=== PATIENT | female | born 1950 | race Caucasian/White ===

== ENCOUNTER 2017-10-23 08:30 | Outpatient (RCR) | payer MEDICARE, OTHER, SELFPAY | END 2017-11-09 11:45 | disposition home or self-care (01) | LOC: PT 08:30 | PROVIDERS: Family Provider Internal Medicine Adolescent Medicine; PCP Internal Medicine Adolescent Medicine; Visit Provider Psychiatry & Neurology Neurology | DX: G62.9 Polyneuropathy, unspecified (principal) | CPT/HCPCS: 97110; 97163 ==

== ENCOUNTER 2018-08-07 13:51 | Inpatient (IN) ==
[2018-08-07 14:27] LABS: Basophils % 0.1 % (0.1-2.0); Hematocrit 36.3 % (37.0-47.0); Hemoglobin 12.4 g/dL (12.2-16.2); Lymphocytes # 0.7 K/mm3 (0.7-4.5); Lymphocytes % 6.2 % (10-50); Mean Corpuscular HGB Conc 34.2 g/dL (31.8-35.4); Mean Corpuscular Hemoglobin 32.5 pg (27.0-31.2); Mean Corpuscular Volume 94.9 fl (81-99); Mean Platelet Volume 8.8 fl (7.4-10.4); Monocytes # 0.4 K/mm3 (0.1-1.0); Monocytes % 3.8 % (1.7-9.3); Neutrophils # 9.6 K/mm3 (1.8-7.8); Neutrophils % 89.9 % (37.0-80.0); Platelet Count 143 K/mm3 (142-424); Red Blood Count 3.83 M/mm3 (4.20-5.40); Red Cell Distribution Width 13.7 % (11.5-17.5); White Blood Count 10.7 K/mm3 (4.8-10.8)
[2018-08-07 14:50] LABS: Lymphocytes % 6 % (10-50); Monocytes % 4 % (2-9); Neutrophils % 90 % (42-76); RBC Morphology Normal; Total Cells Counted 100
[2018-08-07 15:04] LABS: Appearance,Urine CLEAR (Clear); Bilirubin,Urine Negative (Negative); Blood, Urine 1+ (Negative); Color,Urine YELLOW (Yellow); Glucose,Urine (UA) Negative (Negative); Ketones,Urine Negative (Negative); Leukocyte Esterase,Urine 3+ (Negative); Microscopic, Urine URINE MICROSCOPIC (MICROSCOPIC); Protein,Urine TRACE (Negative); Urobilinogen,Urine 0.2 EU/dl (0.2)
--- NOTE | 2018-08-07 15:14 | Emergency Department Note ---
ED Disposition Clinical Impression: Pyelonephritis Disposition: Admitted as Observation Condition on Discharge: Fair Referrals: Phil Daly MD [Primary Care Provider] - - Critical Care Critical Care Time: No Attestation: On 08/07/18, the high probability of a clinically significant, sudden or life threatening deterioration of the following system(s) required my full and direct attention, intervention and personal management. The time I documented below is in addition to time spent performing reported procedures but includes the following listed in this critical care notation. Medical Decision Making - Radhames Inquiry Pt receiving controlled substance: No Vital Signs: 08/07/18 13:58 08/07/18 15:52 Temperature 101.9 F H 98.9 F Temperature Source Oral Oral Pulse Rate [Left Radial] 72 68 Respiratory Rate 22 20 Blood Pressure [Right Arm] 144/78 H 115/67 Blood Pressure Mean [Right Arm] 100 83 Blood Pressure Source [Right Arm] Automatic Cuff Automatic Cuff Blood Pressure Position [Right Arm] Sitting Sitting 02 Sat by Pulse Oximetry 94 L 97 Oxygen Delivery Method Room Air Room Air - Lab Data Lab Results 08/07/18 14:00: WBC 10.7, RBC 3.83 L, Hgb 12.4, Hct 36.3 L, MCV 94.9, MCH 32.5 H , MCHC 34.2, RDW 13.7, Plt Count 143, MPV 8.8, Neut % (Auto) 89.9 H, Lymph % (Auto) 6.2 L, [place] % (Auto) 3.8, Eos % (Auto) 0.0 L, Baso % (Auto) 0.1, Neut # (Auto) 9.6 H, Lymph # (Auto) 0.7, [place] # (Auto) 0.4, Eos # (Auto) 0.0, Baso # (Auto) 0.0, Total Counted 100, Neutrophils % (Manual) 90 H, Lymphocytes % (Manual) 6 L, Monocytes % (Manual) 4, Platelet Estimate Normal, RBC Morphology Normal 08/07/18 14:00: Sodium 137, Potassium 3.5, Chloride 102, Carbon Dioxide 26, Anion Gap 12.5, BUN 12, Creatinine 0.75, Estimated Creat Clear 49, Estimated GFR 76, Est GFR ( Amer) 92, Glucose 114 H, Calcium 8.2 L, Total Bilirubin 0.4, AST 19, ALT 38, Alkaline Phosphatase 74, Total Protein 7.2, Albumin 3.2 L, Globulin 4.0 H, Albumin/Globulin Ratio 0.8 L 08/07/18 14:00: Lactate 0.8 08/07/18 14:20: Influenza Type A Ag Negative, Influenza Type B Ag Negative 08/07/18 14:20: Group A Strep Rapid Negative 08/07/18 14:55: Urine Color Yellow, Urine Appearance Clear, Urine pH 6.0, Ur Specific [place] 1.020, Urine Protein Trace, Urine Glucose (UA) Negative, Urine Ketones Negative, Urine Blood 1+, Urine Nitrate Positive, Urine Bilirubin Negative, Urine Urobilinogen 0.2, Ur Leukocyte Esterase 3+ A, Urine RBC 3-5, Urine WBC 20-50, Ur Squamous Epith Cells 3-5, Urine Bacteria 4+ Result diagrams: 08/07/18 14:00 08/07/18 14:00 Orders (Tests/Meds): ED MEDICATIONS Generic Name Dose Route Start Last Admin Trade Name Freq PRN Reason Stop Dose Admin Ceftriaxone Sodium 1 gm/ 50 mls @ 100 mls/hr 08/07/18 16:15 Sodium Chloride IV 08/21/18 16:14 Q24H [facility] Protocol Discontinued Medications Generic Name Dose Route Start Last Admin Trade Name Freq PRN Reason Stop Dose Admin Acetaminophen 1,000 mg 08/07/18 14:10 08/07/18 14:24 Tylenol 500mg Tablet PO 08/07/18 14:11 1,000 mg ONCE ONE Administration Sodium Chloride 1,000 mls @ 999 mls/hr 08/07/18 14:15 08/07/18 14:24 Sod Chlor 0.9% 1000ml Bag IV 08/07/18 15:15 999 mls/hr .Q1H1M [facility] Administration ORDERS Category Date Time Status Blood Culture Stat Micro 08/07/18 14:00 Received Strep Screen Confirmation Stat Micro 08/07/18 14:20 Received Urine Culture Stat Micro 08/07/18 14:55 Received - Radiology Data #1 Image(s): Chest Image Reviewed: Yes I reviewed the patient's radiology image Preliminary Findings: Normal/NAD - Physician Consults Physician Consulted: Dharmesh Time: 16:15 Reason -: Admission Comment/Response: Agrees to admit the patient to the hospital. We discussed the patient's clinical information, including history, exam, laboratory and radiology results and ED course. Per hospital procedure, I will write temporary bridge inpatient orders on the patient. Specific orders requested by the admitting physician: Continue Rocephin, IV fluids General Adult HPI - General Chief complaint: Weakness Stated complaint: Fever Time Seen by Provider: 08/07/18 15:14 Mode of Arrival: Ambulatory Limitations: No Limitations Description of Symptoms (Recalled from ER Triage Doc. by RN): to ed per pvt car with c/o generalized weakness, body aches, sorethroat starting yesterday. pt denies any nausea, vomiting, sick contacts. cpta none - History of Present Illness HPI narrative: Sick since yesterday. Fever and body aches are her primary complaints. She also has a headache. She says she has some chronic sinus problems but they are essentially unchanged. No increase in rhinorrhea no increase in cough, no sputum production. No vomiting or diarrhea. She does think that she has had some burning dysuria. Some pain in her back over her kidneys. She does have a prior history of UTI. - Related Data Allergies Allergy/AdvReac Type Severity Reaction Status Date / Time No Known Allergies Allergy Verified 10/07/17 08:23 [facility] History - Hepatitis A Screen Drug use history?: No High risk sexual behaviors?: No History of sexually transmitted infection?: No Currently employed?: No Childcare worker?: No Do you have indoor plumbing?: Yes Do you have electricity?: Yes Attestation statement:: This patient has been screened for Hepatitis A risk factors. I have reviewed the patient's past medical history: Yes Medical History: Denies:: Diabetes Mellitus Type 2 - Social History Alcohol Intake: never Occupational Status: other - Psychiatric History Expresses thoughts of harming self/others: None Suicide Plan Description: No Plan ROS Obtained: Yes All systems reviewed & no additional complaints - Constitutional Constitutional: Reports body ache, Reports fever(s) - Gastrointestinal Gastrointestingal: Denies: abdominal pain, diarrhea, vomiting - Genitourinary Female Genitourinary: Reports dysuria Physical Exam - General General appearance: alert, in no apparent distress - Head Head exam: atraumatic, normocephalic - Eye Eye exam: Present: normal appearance, EOMI - ENT ENT exam: Present: normal oropharynx, mucous membranes moist, TM's normal bilaterally - Neck Neck exam: Present: normal inspection, trachea midline. Absent: meningismus, lymphadenopathy - Chest Chest inspection: Present: normal inspection, symmetric chest wall rise - Respiratory Respiratory exam: Present: normal lung sounds bilaterally. Absent: respiratory distress - Cardiovascular Cardiovascular exam: Present: regular rate, normal rhythm, normal heart sounds - Abdominal Exam Abdominal exam: Present: soft. Absent: distention, tenderness - Extremities Exam Extremities exam: Present: normal inspection - Back Exam Back exam: Absent: CVA tenderness (R), CVA tenderness (L) - Neurological Exam Neurological exam: Present: alert, oriented X3 - Psychiatric Psychiatric exam: Present: normal affect, normal mood - Skin Skin exam: Present: warm, dry. Absent: rash
[2018-08-07 15:31] LABS: Albumin Level 3.2 gm/dL (3.4-5.0); Albumin/Globulin Ratio 0.8 (1.1-1.8); Anion Gap 12.5 mEq/L (5-15); Bilirubin,Total 0.4 mg/dL (0.2-1.0); Calcium 8.2 mg/dL (8.5-10.1); Potassium 3.5 mmoL/L (3.5-5.1); Total Protein,Serum 7.2 gm/dL (6.4-8.2)
[2018-08-07 15:36] LABS: Bacteria,Urine 4+ /lpf; WBC,Urine 20-50 #/hpf (0-3)
--- NOTE | 2018-08-08 07:15 | Pharmacy Consult Notes ---
[facility] Pharmacy VTE Monitoring - Patient Demographics Admission date: 08/07/18 Report Date: 08/08/18 Time: 07:15 Allergies/Adverse Reactions: Patient Allergies No Known Allergies Allergy (Verified 10/07/17 08:23) Height: 1.6 m Weight: 65.374 kg Patient Problems: Current Active Problems (Updated 08/07/18 @ 15:22 by Edin Lan MD) Pyelonephritis (Acute) - VTE Risk Labs: VTE Related Lab Results Hgb 12.4 g/dL (12.2-16.2) 08/07/18 14:00 Hct 36.3 % (37.0-47.0) L 08/07/18 14:00 Plt Count 143 K/mm3 (142-424) 08/07/18 14:00 BUN 12 mg/dL (7-18) 08/07/18 14:00 Creatinine 0.75 mg/dL (0.55-1.02) 08/07/18 14:00 Estimated Creat Clear 49 mL/min (50-200) 08/07/18 14:00 Was VTE Risk Assessment Performed: Yes VTE Score: 1 VTE Risk Level: Very Low Risk Clinical Trial Participant: No - Prophylaxis Types of VTE Prophylaxis: TEDS Knee High Location of Applied Device: Bilateral Lower Extremeties
--- NOTE | 2018-08-08 08:46 | History & Physical Report ---
*Admission Date: 08/07/18 <Katie Baeza Willie 08/08/18 09:01> *Chief complaint: fever <BaezaKatie 08/08/18 09:01> *History of present illness: This is a 68-year-old female patient receives her health care with PCP and other physicians at [facility]. She has a history of coronary artery disease with stents, diabetes mellitus, GERD, and previous urinary tract infections.. She states 2 nights ago with fever and awakened yesterday aching all over with a severe headache and sore throat. She admits to dysuria. She was unable to get out of bed. She had her bring her to [facility] emergency room for evaluation. Evaluation in the emergency room she was felt to have a pyelonephritis, was given fluid bolus, started on Rocephin, and admitted for further evaluation and treatment. This a.m. she does not feel much better. She denies nausea. She has been voiding QS. She denies chest pain shortness of breath. <FelishaKatie 08/08/18 09:01> [facility] History Medical History: Reports:: Atherosclerotic Heart Disease, Coronary Artery Disease, Depression, Diabetes Mellitus Type 2, Gastroesophageal Reflux Disease(GERD), Hyperlipidemia, Hypertension, Myocardial Infarction Denies:: Atrial Fibrillation, Internal Pacemaker, Seizures <Katie Baeza 08/08/18 09:01> *Have you ever received a pneumonia vaccine?: Yes <Katie Baeza 08/08/18 09:01> *Have you received a flu vaccine this season?: Yes <Katie Baeza 08/08/18 09:01> Other Medical History: Denies: Arthritis (0.) <Katie Baeza 08/08/18 09:01> Comment:: sinus problems <Katie Baeza 08/08/18 09:01> Other Surgeries: Yes: Cardiac Catheterization, Coronary Stent, Hysterectomy- Partial. No: Pacemaker <Katie Baeza 08/08/18 09:01> Comment: Gastric bypass surgery 3 years ago followed by tamy shaw. <Katie Baeza 08/08/18 09:01> - *Social History Educational Level: Completed College <Katie Baeza 08/08/18 09:01> Alcohol Intake: never <Katie Baeza 08/08/18 09:01> *Occupational Status:: other <Katie Baeza 08/08/18 09:01> Housing: house <BaezaKatie perez 08/08/18 09:01> Household Members: spouse <BaezaKatie perez 08/08/18 09:01> *Travel in the last 8 weeks: None <Katie Baeza 08/08/18 09:01> - Psychiatric History Expresses thoughts of harming self/others: None <Katie Baeza 08/08/18 09:01> Suicide Plan Description: No Plan <Katie Baeza 08/08/18 09:01> Family Hx:: Diabetes <Katie Baeza 08/08/18 09:01> Review of Systems - Constitutional Reports fever(s), Reports headache(s), Reports weakness <Katie Baeza 08/08/18 09:01> - ENT Reports pain with swallowing, Reports sore throat, Denies ear pain <Katie Baeza 08/08/18 09:01> - *Cardiovascular Denies chest pain, Denies shortness of breath, Denies fainting <Katie Baeza 08/08/18 09:01> - *Respiratory Denies chest congestion, Denies cough, Denies shortness of breath <Katie Baeaz 08/08/18 09:01> - *Gastrointestinal Reports loose stools, Denies constipation, Denies black, tarry stools, Denies nausea, Denies vomiting <Katie Baeza 08/08/18 09:01> Comments: Weight loss 125 pounds over the last 3 years after gastric bypass surgery. <Katie Baeza 08/08/18 09:01> - *Genitourinary Reports painful urination, Denies difficulty urinating <Katie Baeza 08/08/18 09:01> - *Musculoskeletal Denies abnormal walking <Katie Baeza 08/08/18 09:01> Comments: walks 2 miles daily <Katie Baeza 08/08/18 09:01> - *Neurologic Denies abnormal walking, Denies dizziness <Katie Baeza 08/08/18 09:01> - Endocrine Comments: low BS <Katie Baeza 08/08/18 09:01> Meds Home Medications Medication Instructions Recorded Confirmed Type Aspirin [Aspir 81] 81 mg PO DAILY 08/07/18 08/07/18 History Ferrous Gluconate [Ferrous 324 mg PO DAILY 08/07/18 08/07/18 History Gluconate 324mg Tab] Losartan Potassium 50 mg PO BID 08/07/18 08/07/18 History Montelukast Sodium [Montelukast 10 mg PO DAILY 08/07/18 08/07/18 History 10mg Tab] Omeprazole Magnesium [Prilosec Otc 20 mg PO DAILY 08/07/18 08/07/18 History 20mg Tab] PARoxetine HCl [Paroxetine HCl] 40 mg PO DAILY 08/07/18 08/07/18 History Acarbose [Precose] 25 mg PO BID 08/08/18 08/08/18 History Atorvastatin Calcium [Atorvastatin 10 mg PO DAILY 08/08/18 08/08/18 History 10mg Tab] Biotin 5 mg PO DAILY 08/08/18 08/08/18 History Calcium Carb, Citrate/Vit D3 1 each PO DIRECTED 08/08/18 08/08/18 History [Citracal + D ER Tablet] Cholecalciferol (Vitamin D3) 5,000 unit PO DAILY 08/08/18 08/08/18 History [Vitamin D3] Cyanocobalamin (Vitamin B-12) 5,000 mcg PO DIRECTED 08/08/18 08/08/18 History [Vitamin B-12] Fexofenadine HCl 60 mg PO BID 08/08/18 08/08/18 History Fluticasone Propionate [Flonase 2 spr NS DAILY 08/08/18 08/08/18 History 50mcg nasal spray 16gm] Metoprolol Tartrate [Lopressor 50 mg PO BID 08/08/18 08/08/18 History 50mg tablet] Multivitamin [Multivitamins] 2 each PO DAILY 08/08/18 08/08/18 History buPROPion HCl [Bupropion HCl Sr] 200 mg PO BID 08/08/18 08/08/18 History cefUROXime axetil [Ceftin 500mg 500 mg PO BID #14 tab 08/10/18 Rx Tab (GEQ)] <Rylan Barroso - 08/16/18 17:07> Allergies Allergy/AdvReac Type Severity Reaction Status Date / Time No Known Allergies Allergy Verified 10/07/17 08:23 <Rylan Barroso - 08/16/18 17:07> Exam Vital signs and Labs for Last 24 Hours: Temp Pulse Resp BP Pulse Ox 98.3 F 54 L 16 169/92 H 96 08/10/18 08:00 08/10/18 08:00 08/10/18 08:00 08/10/18 08:00 08/10/18 08:00 <Rylan Barroso - 08/16/18 17:07> Temp Pulse Resp BP Pulse Ox 99.0 F 59 L 16 113/54 L 92 L 08/08/18 08:00 08/08/18 08:00 08/08/18 08:00 08/08/18 08:00 08/08/18 08:00 Laboratory Results - last 24 hr 08/07/18 14:00: WBC 10.7, RBC 3.83 L, Hgb 12.4, Hct 36.3 L, MCV 94.9, MCH 32.5 H , MCHC 34.2, RDW 13.7, Plt Count 143, MPV 8.8, Neut % (Auto) 89.9 H, Lymph % (Auto) 6.2 L, [place] % (Auto) 3.8, Eos % (Auto) 0.0 L, Baso % (Auto) 0.1, Neut # (Auto) 9.6 H, Lymph # (Auto) 0.7, [place] # (Auto) 0.4, Eos # (Auto) 0.0, Baso # (Auto) 0.0, Total Counted 100, Neutrophils % (Manual) 90 H, Lymphocytes % (Manual) 6 L, Monocytes % (Manual) 4, Platelet Estimate Normal, RBC Morphology Normal 08/07/18 14:00: Sodium 137, Potassium 3.5, Chloride 102, Carbon Dioxide 26, Anion Gap 12.5, BUN 12, Creatinine 0.75, Estimated Creat Clear 49, Estimated GFR 76, Est GFR ( Amer) 92, Glucose 114 H, Calcium 8.2 L, Total Bilirubin 0.4, AST 19, ALT 38, Alkaline Phosphatase 74, Total Protein 7.2, Albumin 3.2 L, Globulin 4.0 H, Albumin/Globulin Ratio 0.8 L 08/07/18 14:00: Lactate 0.8 08/07/18 14:20: Influenza Type A Ag Negative, Influenza Type B Ag Negative 08/07/18 14:20: Group A Strep Rapid Negative 08/07/18 14:55: Urine Color Yellow, Urine Appearance Clear, Urine pH 6.0, Ur Specific [place] 1.020, Urine Protein Trace, Urine Glucose (UA) Negative, Urine Ketones Negative, Urine Blood 1+, Urine Nitrate Positive, Urine Bilirubin Negative, Urine Urobilinogen 0.2, Ur Leukocyte Esterase 3+ A, Urine RBC 3-5, U rine WBC 20-50, Ur Squamous Epith Cells 3-5, Urine Bacteria 4+ <Katie Baeza 08/08/18 09:01> I & O for Last 24 hours: Intake & Output 08/05/18 08/06/18 08/07/18 08/08/18 11:59 11:59 11:59 11:59 Intake Total 510 / 510 Balance 510 / 510 Weight 144 lb 2 oz <Katie Baeza 08/08/18 09:01> Microbiology Reports for the Last 24 Hours: Microbiology 08/07/18 14:55 Urine,Clean Catch Urine Culture - Preliminary Gram Negative Rods <Katie Baeza 08/08/18 09:01> - Constitutional no acute distress <Katie Baeza 08/08/18 09:01> Comments: Sitting up in bed eating breakfast <Katie Baeza 08/08/18 09:01> - *Routine HEENT Exam Head: Present: normocephalic, atraumatic <Katie Baeza 08/08/18 09:01> Eye: Present: PERRL <Katie Baeza 08/08/18 09:01> ENT: Present: mucous membranes moist, oropharynx clear <Katie Baeza 08/08/18 09:01> - *Routine Neck Exam Present: supple, full ROM, trachea midline. Absent: carotid bruit, lymphadenopathy, thyromegaly, tracheal deviation <Katie Baeza 08/08/18 09:01> - *Routine Respiratory Exam Present: CTA bilaterally (A&P) <Katie Baeza 08/08/18 09:01> - *Routine Cardiovascular Exam Present: RRR <Katie Baeza 08/08/19 09:01> - *Routine Abdominal Exam Present: soft, normoactive bowel sounds, tenderness (SP Tenderness) <FelishaKatie 08/08/18 09:01> - *Routine Extremities Exam Present: pulses intact. Absent: edema, tenderness <FelishaKatie 08/08/18 09:01> - *Routine Neurological Exam Present: alert, oriented X3 <FelishaKatie 08/08/18 09:01> Assessment and Plan (1) Pyelonephritis Status: Acute Category: Medical Code(s): N12 - Tubulo-interstitial nephritis, not specified as acute or chronic (2) Type 2 diabetes mellitus Status: Chronic Category: Medical Code(s): E11.9 - Type 2 diabetes mellitus without complications (3) Coronary artery disease Status: Chronic Category: Medical Code(s): I25.10 - Atherosclerotic heart disease of [place] coronary artery without angina pectoris (4) GERD (gastroesophageal reflux disease) Status: Chronic Category: Medical Code(s): K21.9 - Gastro-esophageal reflux disease without esophagitis (5) E coli infection Status: Acute Category: Medical Code(s): A49.8 - Other bacterial infections of unspecified site <Rylan Barroso 08/16/18 17:07> (1) Pyelonephritis Status: Acute Category: Medical Code(s): N12 - Tubulo-interstitial nephritis, not specified as acute or chronic (2) Type 2 diabetes mellitus Status: Chronic Category: Medical Code(s): E11.9 - Type 2 diabetes mellitus without complications (3) Coronary artery disease Status: Chronic Category: Medical Code(s): I25.10 - Atherosclerotic heart disease of [place] coronary artery without angina pectoris (4) GERD (gastroesophageal reflux disease) Status: Chronic Category: Medical Code(s): K21.9 - Gastro-esophageal reflux disease without esophagitis <Katie Baeza 08/08/18 08:42> - Assessment and plan all Dx Assessment and Plan for all problems:: Patient seen and examined. Concur with assessment and plan as outlined. <Rylan Barroso 08/16/18 17:07> Urine culture reveals gram negative. We will continue with IV fluids and IV Rocephin. <Katie Baeza 08/08/18 09:01>
--- NOTE | 2018-08-09 08:45 | Progress Note ---
<Kerrie Barahona - Last Filed: 08/09/18 08:43> Internal Medicine - PN: Subj *Date: 08/09/18 *Time: 08:43 Interval history: Patient states she feels about the same today. She is still having lower abdominal pain and some back pain. She has not had a fever but has had some chills. She has not had much to eat this morning due to some nausea. She is requesting her vitamins be reordered as she is a gastric bypass patient and needs to take these daily. Exam Vital signs and Labs for Last 24 Hours: Temp Pulse Resp BP Pulse Ox 98.1 F 57 L 20 151/76 H 96 08/09/18 08:00 08/09/18 04:00 08/09/18 08:00 08/09/18 08:00 08/09/18 08:00 Laboratory Results - last 24 hr 08/09/18 04:44: POC Glucose 104 I & O for Last 24 hours: Intake & Output 08/06/18 08/07/18 08/08/18 08/09/18 11:59 11:59 11:59 11:59 Intake Total 510 / 510 544 / 544 Balance 510 / 510 544 / 544 Weight 144 lb 2 oz 144 lb 6 oz Microbiology Reports for the Last 24 Hours: Microbiology 08/07/18 14:55 Urine,Clean Catch Urine Culture - Final Escherichia coli - Constitutional no acute distress - *Routine Respiratory Exam Present: CTA bilaterally - *Routine Cardiovascular Exam Present: RRR - *Routine Abdominal Exam Present: soft, normoactive bowel sounds, tenderness (lower abdomen) - *Routine Extremities Exam Absent: cyanosis, clubbing, edema Assessment and Plan (1) Pyelonephritis Current visit: Yes Status: Acute Category: Medical Code(s): N12 - Tubulo- interstitial nephritis, not specified as acute or chronic (2) Type 2 diabetes mellitus Current visit: Yes Status: Chronic Category: Medical Code(s): E11.9 - Type 2 diabetes mellitus without complications (3) Coronary artery disease Current visit: Yes Status: Chronic Category: Medical Code(s): I25.10 - Atherosclerotic heart disease of [place] coronary artery without angina pectoris (4) GERD (gastroesophageal reflux disease) Current visit: Yes Status: Chronic Category: Medical Code(s): K21.9 - Gastro-esophageal reflux disease without esophagitis (5) E coli infection Current visit: Yes Status: Acute Category: Medical Code(s): A49.8 - Other bacterial infections of unspecified site - Assessment and plan all Dx Assessment and Plan for all problems:: Urine culture is positive for E. coli that is sensitive to Rocephin. We will continue IV antibiotics. Will reorder patient's vitamins today. <DharmeshRylan Ho - Last Filed: 08/09/18 21:38> Internal Medicine - PN: Subj *Date: 08/09/18 *Time: 21:37 Exam Vital signs and Labs for Last 24 Hours: Temp Pulse Resp BP Pulse Ox 98.7 F 57 L 15 145/72 H 92 L 08/09/18 20:00 08/09/18 20:00 08/09/18 20:00 08/09/18 20:00 08/09/18 20:00 Laboratory Results - last 24 hr 08/09/18 04:44: POC Glucose 104 I & O for Last 24 hours: Intake & Output 08/07/18 08/08/18 08/09/18 08/10/18 11:59 11:59 11:59 11:59 Intake Total 510 / 510 1144 / 1144 4022 / 4022 Balance 510 / 510 1144 / 1144 4022 / 4022 Weight 144 lb 2 oz 144 lb 6 oz Microbiology Reports for the Last 24 Hours: Microbiology 08/07/18 14:00 Blood Blood Culture - Preliminary NO GROWTH AFTER 48 HOURS 08/07/18 14:00 Blood Blood Culture - Preliminary NO GROWTH AFTER 48 HOURS 08/07/18 14:20 Throat Group A Streptococcus Screen (TRENA) - Final Negative for Group A Streptococcus. 08/07/18 14:55 Urine,Clean Catch Urine Culture - Final Escherichia coli Assessment and Plan (1) Pyelonephritis Current visit: Yes Status: Acute Category: Medical Code(s): N12 - Tubulo- interstitial nephritis, not specified as acute or chronic (2) Type 2 diabetes mellitus Current visit: Yes Status: Chronic Category: Medical Code(s): E11.9 - Type 2 diabetes mellitus without complications (3) Coronary artery disease Current visit: Yes Status: Chronic Category: Medical Code(s): I25.10 - Atherosclerotic heart disease of [place] coronary artery without angina pectoris (4) GERD (gastroesophageal reflux disease) Current visit: Yes Status: Chronic Category: Medical Code(s): K21.9 - Gastro-esophageal reflux disease without esophagitis (5) E coli infection Current visit: Yes Status: Acute Category: Medical Code(s): A49.8 - Other bacterial infections of unspecified site - Assessment and plan all Dx Assessment and Plan for all problems:: Patient seen and examined. Concur with assessment and plan.
[2018-08-10 06:37] LABS: Basophils % 0.5 % (0.1-2.0); Eosinophils # 0.2 K/mm3 (0.0-0.4); Eosinophils % 2.2 % (0.1-12.0); Hematocrit 34.5 % (37.0-47.0); Hemoglobin 11.4 g/dL (12.2-16.2); Lymphocytes # 1.9 K/mm3 (0.7-4.5); Mean Corpuscular Hemoglobin 32.3 pg (27.0-31.2); Mean Corpuscular Volume 97.7 fl (81-99); Mean Platelet Volume 9.1 fl (7.4-10.4); Monocytes # 0.5 K/mm3 (0.1-1.0); Neutrophils # 4.6 K/mm3 (1.8-7.8); Neutrophils % 64.2 % (37.0-80.0); Platelet Count 150 K/mm3 (142-424); Red Blood Count 3.53 M/mm3 (4.20-5.40); Red Cell Distribution Width 13.8 % (11.5-17.5); White Blood Count 7.2 K/mm3 (4.8-10.8)
[2018-08-10 06:47] LABS: Anion Gap 10.4 mEq/L (5-15); Calcium 8.4 mg/dL (8.5-10.1); Potassium 3.4 mmoL/L (3.5-5.1)
--- NOTE | 2018-08-10 08:36 | Progress Note ---
Internal Medicine - PN: Subj *Date: 08/10/18 *Time: 08:33 Interval history: Feeling much better. No abdominal pain or dysuria. Tolerating diet. +BM. Eager to go home Exam Vital signs and Labs for Last 24 Hours: Temp Pulse Resp BP Pulse Ox 98.3 F 54 L 16 169/92 H 96 08/10/18 08:00 08/10/18 08:00 08/10/18 08:00 08/10/18 08:00 08/10/18 08:00 Laboratory Results - last 24 hr 08/10/18 06:08: WBC 7.2 D, RBC 3.53 L, Hgb 11.4 L, Hct 34.5 L, MCV 97.7, MCH 32.3 H, MCHC 33.0, RDW 13.8, Plt Count 150, MPV 9.1, Neut % (Auto) 64.2, Lymph % (Auto) 26.0, [place] % (Auto) 7.0, Eos % (Auto) 2.2, Baso % (Auto) 0.5, Neut # (Auto) 4.6, Lymph # (Auto) 1.9, [place] # (Auto) 0.5, Eos # (Auto) 0.2, Baso # (Auto) 0.0 08/10/18 06:08: Sodium 142, Potassium 3.4 L, Chloride 105, Carbon Dioxide 30, Anion Gap 10.4, BUN 11, Creatinine 0.63, Estimated Creat Clear 54, Estimated GFR 93, Est GFR ( Amer) 113 D, Glucose 90, Calcium 8.4 L I & O for Last 24 hours: Intake & Output 08/07/18 08/08/18 08/09/18 08/10/18 11:59 11:59 11:59 11:59 Intake Total 510 / 510 1144 / 1144 4494 / 4494 Output Total 800 / 800 Balance 510 / 510 1144 / 1144 3694 / 3694 Weight 144 lb 2 oz 144 lb 6 oz 144 lb 9 oz Microbiology Reports for the Last 24 Hours: Microbiology 08/07/18 14:00 Blood Blood Culture - Preliminary NO GROWTH AFTER 48 HOURS 08/07/18 14:00 Blood Blood Culture - Preliminary NO GROWTH AFTER 48 HOURS 08/07/18 14:20 Throat Group A Streptococcus Screen (TRENA) - Final Negative for Group A Streptococcus. 08/07/18 14:55 Urine,Clean Catch Urine Culture - Final Escherichia coli - Constitutional no acute distress ( ) - *Routine Respiratory Exam Present: CTA bilaterally - *Routine Cardiovascular Exam Present: RRR - *Routine Abdominal Exam Present: soft. Absent: tenderness, distended Assessment and Plan (1) Pyelonephritis Current visit: Yes Status: Acute Category: Medical Code(s): N12 - Tubulo- interstitial nephritis, not specified as acute or chronic (2) Type 2 diabetes mellitus Current visit: Yes Status: Chronic Category: Medical Code(s): E11.9 - Type 2 diabetes mellitus without complications (3) Coronary artery disease Current visit: Yes Status: Chronic Category: Medical Code(s): I25.10 - Atherosclerotic heart disease of [place] coronary artery without angina pectoris (4) GERD (gastroesophageal reflux disease) Current visit: Yes Status: Chronic Category: Medical Code(s): K21.9 - Gastro-esophageal reflux disease without esophagitis (5) E coli infection Current visit: Yes Status: Acute Category: Medical Code(s): A49.8 - Other bacterial infections of unspecified site - Assessment and plan all Dx Assessment and Plan for all problems:: Responding to treatment. Feeling much better. Stable for discharge home on oral antibiotics and will f/u with family MD next week.
--- NOTE | 2018-08-10 21:43 | Discharge Summary ---
General - General Admission date:: 08/08/18 <Rylan Barroso - 08/16/18 17:02> 08/08/18 <Kerrie Barahona - 08/10/18 21:43> Discharge date: 08/10/18 <Kerrie Barahona - 08/10/18 21:43> HPI HPI: This 68-year-old female patient receives her health care with PCP and other physicians at [facility]. She has a history of coronary artery disease with stents, diabetes mellitus, GERD, and previous urinary tract infections. She stated 2 nights prior to admission she began running a fever and was awakened due to aching all over with a severe headache and sore throat. She adm itted to dysuria. She was unable to get out of bed. She had her bring her to [facility] emergency room for evaluation. With evaluation in the emergency room, she was felt to have a pyelonephritis, was given a fluid bolus, started on Rocephin, and was admitted for further evaluation and treatment. <Kerrie Barahona - 08/10/18 21:43> Hospital Course Hospital Course: The patient's chest x-ray showed nothing acute but her urine did have 3+ leukoesterase. She was continued on IV fluids and IV Rocephin. She continued with some lower abdominal pain and back pain as well as nausea. Her fever did resolve. Her urine culture came back positive for E. coli that was sensitive to Rocephin. She began feeling much better and her abdominal pain and dysuria resolved. She tolerated a diet, had a bowel movement, and was eager to go home. She was stable to be discharged home on oral antibiotics and will follow up with her PCP. <Kerrie Barahona - 08/10/18 21:43> Objective Vital signs: Temp Pulse Resp BP Pulse Ox 98.3 F 54 L 16 169/92 H 96 08/10/18 08:00 08/10/18 08:00 08/10/18 08:00 08/10/18 08:00 08/10/18 08:00 <Rylan Barroso - 08/16/18 17:02> Temp Pulse Resp BP Pulse Ox 98.3 F 54 L 16 169/92 H 96 08/10/18 08:00 08/10/18 08:00 08/10/18 08:00 08/10/18 08:00 08/10/18 08:00 <Kerrie Barahona - 08/10/18 21:43> Narrative: - Constitutional no acute distress Comments: Sitting up in bed eating breakfast - *Routine HEENT Exam Head: Present: normocephalic, atraumatic Eye: Present: PERRL ENT: Present: mucous membranes moist, oropharynx clear - *Routine Neck Exam Present: supple, full ROM, trachea midline. Absent: carotid bruit, lymphadenopathy, thyromegaly, tracheal deviation - *Routine Respiratory Exam Present: CTA bilaterally (A&P) - *Routine Cardiovascular Exam Present: RRR - *Routine Abdominal Exam Present: soft, normoactive bowel sounds, tenderness (SP Tenderness) - *Routine Extremities Exam Present: pulses intact. Absent: edema, tenderness - *Routine Neurological Exam Present: alert, oriented X3 <Kerrie Barahona - 08/10/18 21:43> Results Labs on day of discharge: Labs from last 24 hours 08/10/18 08/10/18 06:08 06:08 WBC 7.2 D RBC 3.53 L Hgb 11.4 L Hct 34.5 L MCV 97.7 MCH 32.3 H MCHC 33.0 RDW 13.8 Plt Count 150 MPV 9.1 Neut % (Auto) 64.2 Lymph % (Auto) 26.0 [place] % (Auto) 7.0 Eos % (Auto) 2.2 Baso % (Auto) 0.5 Neut # (Auto) 4.6 Lymph # (Auto) 1.9 [place] # (Auto) 0.5 Eos # (Auto) 0.2 Baso # (Auto) 0.0 Sodium 142 Potassium 3.4 L Chloride 105 Carbon Dioxide 30 Anion Gap 10.4 BUN 11 Creatinine 0.63 Estimated Creat Clear 54 Estimated GFR 93 Est GFR ( Amer) 113 D Glucose 90 Calcium 8.4 L Preliminary micro results at discharge 08/07/18 14:00 Blood Culture - Preliminary Blood NO GROWTH AFTER 48 HOURS 08/07/18 14:00 Blood Culture - Preliminary Blood NO GROWTH AFTER 48 HOURS <Kerrie Barahona - 08/10/18 21:43> DS: Diagnosis - Discharge Diagnosis (1) Pyelonephritis Status: Acute (2) Type 2 diabetes mellitus Status: Chronic (3) Coronary artery disease Status: Chronic (4) GERD (gastroesophageal reflux disease) Status: Chronic (5) E coli infection Status: Acute <Kerrie Barahona - 08/10/18 21:38> (1) Pyelonephritis Status: Acute (2) Type 2 diabetes mellitus Status: Chronic (3) Coronary artery disease Status: Chronic (4) GERD (gastroesophageal reflux disease) Status: Chronic (5) E coli infection Status: Acute <Rylan Barroso - 08/16/18 17:02> Discharge Plan - Patient Discharge Instructions ACTIVITY: Continue current activity <Kerrie Barahona - 08/10/18 21:43> DIET: continue same diet <Kerrie Barahona - 08/10/18 21:43> Patient Instructions: Kidney Infection, DI for Kidney Infection <Rylan Barroso - 08/16/18 17:02> Forms: <Rylan Barroso - 08/16/18 17:02> - Follow up Plan Follow up with: Phil Daly MD [Primary Care Provider] - 1 week <Rylan Barroso - 08/16/18 17:02> Disposition: Home, Self-Care <Rylan Barroso - 08/16/18 17:02> Home Medications: Home Medications Medication Instructions Recorded Confirmed Type Aspirin [Aspir 81] 81 mg PO DAILY 08/07/18 08/07/18 History Ferrous Gluconate [Ferrous 324 mg PO DAILY 08/07/18 08/07/18 History Gluconate 324mg Tab] Losartan Potassium 50 mg PO BID 08/07/18 08/07/18 History Montelukast Sodium [Montelukast 10 mg PO DAILY 08/07/18 08/07/18 History 10mg Tab] Omeprazole Magnesium [Prilosec Otc 20 mg PO DAILY 08/07/18 08/07/18 History 20mg Tab] PARoxetine HCl [Paroxetine HCl] 40 mg PO DAILY 08/07/18 08/07/18 History Acarbose [Precose] 25 mg PO BID 08/08/18 08/08/18 History Atorvastatin Calcium [Atorvastatin 10 mg PO DAILY 08/08/18 08/08/18 History 10mg Tab] Biotin 5 mg PO DAILY 08/08/18 08/08/18 History Calcium Carb, Citrate/Vit D3 1 each PO DIRECTED 08/08/18 08/08/18 History [Citracal + D ER Tablet] Cholecalciferol (Vitamin D3) 5,000 unit PO DAILY 08/08/18 08/08/18 History [Vitamin D3] Cyanocobalamin (Vitamin B-12) 5,000 mcg PO DIRECTED 08/08/18 08/08/18 History [Vitamin B-12] Fexofenadine HCl 60 mg PO BID 08/08/18 08/08/18 History Fluticasone Propionate [Flonase 2 spr NS DAILY 08/08/18 08/08/18 History 50mcg nasal spray 16gm] Metoprolol Tartrate [Lopressor 50 mg PO BID 08/08/18 08/08/18 History 50mg tablet] Multivitamin [Multivitamins] 2 each PO DAILY 08/08/18 08/08/18 History buPROPion HCl [Bupropion HCl Sr] 200 mg PO BID 08/08/18 08/08/18 History cefUROXime axetil [Ceftin 500mg 500 mg PO BID #14 tab 08/10/18 Rx Tab (GEQ)] <Rylan Barroso - 08/16/18 17:02> Prescriptions/Medication Reconciliation: New cefUROXime axetil [Ceftin 500mg Tab (GEQ)] 500 mg PO BID #14 tab Continued Ferrous Gluconate [Ferrous Gluconate 324mg Tab] 324 mg PO DAILY Omeprazole Magnesium [Prilosec Otc 20mg Tab] 20 mg PO DAILY PARoxetine HCl [Paroxetine HCl] 40 mg PO DAILY Montelukast Sodium [Montelukast 10mg Tab] 10 mg PO DAILY Aspirin [Aspir 81] 81 mg PO DAILY Fexofenadine HCl 60 mg PO BID Multivitamin [Multivitamins] 2 each PO DAILY Acarbose [Precose] 25 mg PO BID Atorvastatin Calcium [Atorvastatin 10mg Tab] 10 mg PO DAILY Biotin 5 mg PO DAILY buPROPion HCl [Bupropion HCl Sr] 200 mg PO BID Calcium Carb, Citrate/Vit D3 [Citracal + D ER Tablet] 1 each PO DIRECTED Cholecalciferol (Vitamin D3) [Vitamin D3] 5,000 unit PO DAILY Cyanocobalamin (Vitamin B-12) [Vitamin B-12] 5,000 mcg PO DIRECTED Fluticasone Propionate [Flonase 50mcg nasal spray 16gm] 2 spr NS DAILY Losartan Potassium 50 mg PO BID Metoprolol Tartrate [Lopressor 50mg tablet] 50 mg PO BID <Rylan Barroso - 08/16/18 17:02> - Additional Information Additional Information: Concur with plan for discharge as outlined above. <Rylan Barroso - 08/16/18 17:01>
== END 2018-08-10 10:17 | disposition home or self-care (01) | DRG 690 ==
LOC: 2ND 13:51 → ER 13:51 → 2ND 17:42
PROVIDERS: ADMIT Family Medicine; ATTEND Family Medicine
CPT/HCPCS: 36415; 71020; 71046; 80048; 80053; 81001; 82962; 83605; 85007; 85025; 87040; 87086; 87088; 87186; 87275; 87276; 87430; 96365; 96375; 99284; G0378

== ENCOUNTER 2020-10-18 03:48 | Emergency (ER) | payer MEDICARE, OTHER, SELFPAY ==
[2020-10-18] VITALS (7 sets, daily range): BP systolic 138–166; BP diastolic 54–96; PULSE 50–56; RESP 18; TEMP 36.6; O2SAT 94–100; BMI 25.6
--- NOTE | 2020-10-18 04:03 | XR_ITS ---
PROCEDURE INFORMATION: Exam: XR Right Humerus Exam date and time: 10/18/2020 4:03 AM Age: 70 years old Clinical indication: Injury or trauma; Fall; Blunt trauma (contusions or hematomas); Arm, upper; Right TECHNIQUE: Imaging protocol: XR Right humerus. Views: 2 or more views. COMPARISON: No relevant prior studies available. FINDINGS: Bones/joints: No acute fracture. No dislocation. Soft tissues: Unremarkable. IMPRESSION: No fracture.
--- NOTE | 2020-10-18 04:03 | XR_ITS ---
PROCEDURE INFORMATION: Exam: XR Right Wrist Exam date and time: 10/18/2020 4:03 AM Age: 70 years old Clinical indication: Injury or trauma; Fall; Blunt trauma (contusions or hematomas); Wrist; Right TECHNIQUE: Imaging protocol: XR Right wrist. Views: 3 or more views. COMPARISON: No relevant prior studies available. FINDINGS: Bones/joints: No acute fracture. No dislocation. Soft tissues: Small calcification. IMPRESSION: No fracture. If pain persists, suggest splinting and follow up radiographs in 7-10 days.
--- NOTE | 2020-10-18 04:03 | CT_ITS ---
PROCEDURE INFORMATION: Exam: CT Cervical Spine Without Contrast Exam date and time: 10/18/2020 4:03 AM Age: 70 years old Clinical indication: Injury or trauma; Fall; Blunt trauma; Patient HX: Denies neck pain TECHNIQUE: Imaging protocol: Computed tomography images of the cervical spine without contrast. Radiation optimization: All CT scans at this facility use at least one of these dose optimization techniques: automated exposure control; mA and/or kV adjustment per patient size (includes targeted exams where dose is matched to clinical indication); or iterative reconstruction. COMPARISON: No relevant prior studies available. FINDINGS: Bones/joints: No acute fracture. Normal alignment. Discs/Spinal canal/Neural foramina: Moderate degenerative disc disease within lower cervical spine. No significant central canal stenosis. Neuroforaminal narrowing within lower cervical spine. Lungs: Minimal apical scarring. Vasculature: Atherosclerotic disease of carotid arteries. Soft tissues: Unremarkable. IMPRESSION: No fracture.
--- NOTE | 2020-10-18 04:05 | PC.NURSE ---
2 rings removed from patients hand by Zechariah Monreal RN and given to patients spouse
--- NOTE | 2020-10-18 04:51 | HMH.EDUPEXT ---
ED Disposition Clinical Impression: Right wrist injury Qualifiers: Encounter type: initial encounter Qualified Code(s): S69.91XA - Unspecified injury of right wrist, hand and finger(s), initial encounter Disposition: Home, Self-Care Condition on Discharge: Good Instructions: DI for Wrist Sprain Additional Instructions: ice and see pcp and ortho for follow up Referrals: Phil Daly MD [Primary Care Provider] - - Critical Care Critical Care Time: No Attestation: On 10/18/20, the high probability of a clinically significant, sudden or life threatening deterioration of the following system(s) required my full and direct attention, intervention and personal management. The time I documented below is in addition to time spent performing reported procedures but includes the following listed in this critical care notation. Medical Decision Making - Medical Records Medical records reviewed: Yes: I reviewed the patient's medical records. - Radhames Inquiry Pt receiving controlled substance: No Vital Signs: 10/18/20 03:49 10/18/20 04:00 10/18/20 05:48 Temperature 97.8 F Temperature Source Oral Pulse Rate 56 L 50 L Pulse Rate [Left Radial] 56 L Respiratory Rate 18 Blood Pressure 155/95 H 141/95 H Blood Pressure [Left Arm] 153/82 H Blood Pressure Mean 132 124 Blood Pressure Mean [Left Arm] 105 Blood Pressure Source [Left Arm] Automatic Cuff Blood Pressure Position [Left Arm] Sitting 02 Sat by Pulse Oximetry 97 96 96 Oxygen Delivery Method Room Air Room Air Room Air 10/18/20 06:01 10/18/20 06:31 Temperature Temperature Source Pulse Rate 53 L 55 L Pulse Rate [Left Radial] Respiratory Rate Blood Pressure 138/54 L 158/77 H Blood Pressure [Left Arm] Blood Pressure Mean 82 104 Blood Pressure Mean [Left Arm] Blood Pressure Source [Left Arm] Blood Pressure Position [Left Arm] 02 Sat by Pulse Oximetry 95 97 Oxygen Delivery Method Room Air Room Air - Lab Data Lab results reviewed: Yes: I reviewed the patient's lab results. Orders (Tests/Meds): ED MEDICATIONS Discontinued Medications Generic Name Dose Route Start Last Admin Trade Name Freq PRN Reason Stop Dose Admin Ketorolac Tromethamine 30 mg 10/18/20 04:19 10/18/20 04:25 Ketorolac 30mg/Ml Vial IV 10/18/20 04:20 30 mg ONCE ONE Administration - Radiology Data #1 Image(s): Humerus, Wrist Image Reviewed: Yes I have reviewed radiologist's interpretation Preliminary Findings: No Fracture Seen - CT Data CT Scan: C-Spine, Other (rt wrist ) Time Received: 07:[address] Reviewed: Yes: I have viewed the radiologist's interpretation Preliminary Findings: No Fracture Seen Medical Decision Narrative: swelling rt wrist and decrease extension rt wrist at first but now able to extend wrist - no def fx found Upper Extremity HPI - General Chief Complaint: Extremity Injury, Upper Stated Complaint: AO 10/17/202099 injury to right hand Time Seen by Provider: 10/18/20 04:00 Mode of Arrival: Ambulatory Source of Information: Patient, Spouse, Medical Record Limitations: No Limitations Description of Symptoms (Recalled from ER Triage Doc. by RN): Pt reports tripping up her stairs lastnight at 9pm and injuried her right wrist. She woke up and says her pain was much worse. She denies hitting head or LOC. She has limited ROM of right wrist. - History of Present Illness HPI narrative: trip injury with acute rt wrist injury about 4 hrs before arrival - pt w/o neck or other c/o at this time - MD complaint: injury to: right, wrist Onset (ago): hour(s) Other Extremity Injury: Right: wrist Other injuries: none Handedness: right Place: home Severity: moderate Context: fall Associated symptoms: denies other symptoms - Related Data Home Medications Medication Instructions Recorded Confirmed Omeprazole Magnesium [Prilosec Otc 20 mg PO DAILY 08/07/18 10/18/20 20mg Tab] Calcium Carb, Citrate/Vi
--- NOTE | 2020-10-18 04:56 | CT_ITS ---
PROCEDURE INFORMATION: Exam: CT Right Upper Extremity Without Contrast, Wrist Exam date and time: 10/18/2020 4:56 AM Age: 70 years old Clinical indication: Injury or trauma; Blunt trauma (contusions or hematomas); Patient HX: Fall, right wrist pain TECHNIQUE: Imaging protocol: CT of the Right upper extremity without contrast was performed. Exam focused on the wrist. 3D rendering (Not supervised by radiologist): MIP and/or 3D reconstructed images were created by the technologist. Radiation optimization: All CT scans at this facility use at least one of these dose optimization techniques: automated exposure control; mA and/or kV adjustment per patient size (includes targeted exams where dose is matched to clinical indication); or iterative reconstruction. COMPARISON: CR XR WRIST RT MIN 3V 10/18/2020 4:34 AM FINDINGS: Limitations: Suboptimal positioning. Bones/joints: No acute fracture. No dislocation. Soft tissues: Small soft tissue calcification. IMPRESSION: No fracture.
--- NOTE | 2020-10-18 05:48 | PC.NURSE ---
called radiology to check status of reports, grading clerk will reach out to AD
== END 2020-10-18 07:57 | disposition home or self-care (01) ==
PROVIDERS: Emergency Provider Emergency Medicine; PCP Family Medicine
DX: S63.501A Unspecified sprain of right wrist, initial encounter (principal); W10.9XXA Fall (on) (from) unspecified stairs and steps, initial encounter; Y92.019 Unspecified place in single-family (private) house as the place of occurrence of the external cause; I10 Essential (primary) hypertension; E11.9 Type 2 diabetes mellitus without complications; E78.5 Hyperlipidemia, unspecified; K21.9 Gastro-esophageal reflux disease without esophagitis; I25.2 Old myocardial infarction; Z79.899 Other long term (current) drug therapy
CPT/HCPCS: 72125; 73060; 73110; 73200; 96374; 99283

== ENCOUNTER 2020-12-06 13:17 | Emergency (ER) | payer MEDICARE, OTHER, SELFPAY ==
[2020-12-06 14:15] VITALS: BP 151/88; PULSE 88; RESP 17; TEMP 37.1; O2SAT 99; BMI 25.6
--- NOTE | 2020-12-06 14:31 | HMH.EDUTC ---
[facility] [place] Clinical Impression: COVID-19 virus test result unknown Disposition: Home, Self-Care Condition on Discharge: Good Instructions: DI for COVID-19 (Suspected or Confirmed ), How to Care for Someone with COVID-19, Preventing the Spread of Coronavirus Discharge Instructions Additional Instructions: covid swab was sent to lab, call later today for results. self isolate until test results are known to be negative No sign of a bacterial infection. Likely viral. Viruses can take 7-14 days to run their course. Nasal saline and bulb syringe or nose Renetta to remove nasal drainage to help with nasal congestion. Hard to eat, drink, sleep with nasal congestion so important to keep this cleaned out. Monitor temp. Tylenol or Motrin as needed for pain or fever Encourage fluids, water, Gatorade, Powerade, Pedialyte if infant/toddler/child Warm salt water gargles Warm fluids Sore throat lozenges Sleep elevated Humidifier/vaporizer Follow-up immediately for new or worsening symptoms or no noticeable improvement over the next 48-72 hours. Referrals: Phil Daly MD [Primary Care Provider] - Time of Disposition: 14:34 Medical Decision Making - Radhames Inquiry Pt receiving controlled substance: No [facility] [place] - General Chief complaint: [facility] Stated complaint: cough,headache,runny nose,sore throat Time Seen by Provider: 12/06/20 14:31 Mode of Arrival: Ambulatory Source of Information: Patient Limitations: No Limitations - History of Present Illness Provider Complaint: 70 yr old female presents for cough, clear nasal congetion and tiredness for 2 days, wants covid test - Related Data Home Medications Medication Instructions Recorded Confirmed Omeprazole Magnesium [Prilosec Otc 20 mg PO DAILY 08/07/18 10/18/20 20mg Tab] Calcium Carb, Citrate/Vit D3 1 each PO DIRECTED 08/08/18 10/18/20 [Citracal-D3 ER 600 mg-500 Unit] Cholecalciferol (Vitamin D3) 5,000 unit PO DAILY 08/08/18 10/18/20 [Vitamin D3] Cyanocobalamin (Vitamin B-12) 5,000 mcg PO DIRECTED 08/08/18 10/18/20 [Vitamin B-12] Multivitamin [Multivitamins] 2 each PO DAILY 08/08/18 10/18/20 Allergies Allergy/AdvReac Type Severity Reaction Status Date / Time No Known Allergies Allergy Verified 10/07/17 08:23 [facility] History - Hepatitis A Screen Attestation statement:: This patient has been screened for Hepatitis A risk factors. I have reviewed the patient's past medical history: Yes Medical History: Reports:: Atherosclerotic Heart Disease, Coronary Artery Disease, Depression, Diabetes Mellitus Type 2, Gastroesophageal Reflux Disease(GERD), Hyperlipidemia, Hypertension, Myocardial Infarction Denies:: Atrial Fibrillation, Internal Pacemaker, Seizures Other Medical History: Denies: Arthritis (0.) Comment: sinus problems Other Surgeries: Yes: Cardiac Catheterization, Coronary Stent, Hysterectomy-Partial. No: Pacemaker Comment: Gastric bypass surgery 3 years ago followed by tamy shaw. - Social History Alcohol Intake: never Occupational Status: other Housing: house Household Members: spouse - Psychiatric History Pschychiatric History:: Reports:: Depression Family Hx:: Diabetes ROS Obtained: Yes Systems reviewed as appropriate & no additional complaints - Constitutional Constitutional: Reports system reviewed and no additional complaints, except as docu, Denies fever(s) - Eyes Eyes: Reports system reviewed and no additional complaints, except as docu, Denies blurry vision - ENT Ears, Nose, Mouth, and Throat: Reports system reviewed and no additional complaints, except as docu, Reports nasal congestion, Reports nasal discharge, Denies sore throat - Cardiovascular Cardiovascular: Reports system reviewed and no additional complaints, except as docu, Denies chest pain - Respiratory Respiratory: Reports system reviewed and no additional complaints, except as docu, Reports cough, Reports non-productive cough -
[2020-12-06 14:36] VITALS: BP 151/88; PULSE 88; RESP 17; TEMP 37.1; O2SAT 99
--- NOTE | 2020-12-07 09:09 | PC.NURSE ---
informed patient that she is postive
== END 2020-12-06 14:40 | disposition home or self-care (01) ==
PROVIDERS: Emergency Provider Nurse Practitioner Family; PCP Family Medicine
DX: U07.1 COVID-19 (principal)
CPT/HCPCS: G0463; 99202; U0003

== ENCOUNTER 2022-01-23 19:24 | Emergency (ER) | payer MEDICARE, OTHER, SELFPAY ==
[2022-01-23 19:39] VITALS: BP 153/85; PULSE 60; RESP 18; TEMP 36.9; O2SAT 95; BMI 24.7
--- NOTE | 2022-01-23 20:32 | HMH.EDGENADL ---
Discharge Plan Disposition Patient Disposition: Home, Self-Care Condition: Fair Prescriptions Prescriptions: New acyclovir 800 mg tablet 800 mg PO .5x daily Qty: 35 0RF No Action omeprazole magnesium 20 MG tablet,delayed release (DR/EC) 20 mg PO DAILY multivitamin 1 EACH capsule 2 each PO DAILY cholecalciferol (vitamin D3) 5,000 UNIT tablet 5,000 unit PO DAILY calcium carb and citrate-vitD3 1 EACH tablet extended release 1 each PO DIRECTED Rx Instructions: 2 IN THE MORNING AND 1 IN THE EVENING cyanocobalamin (vitamin B-12) 5,000 MCG capsule 5,000 mcg PO DIRECTED Rx Instructions: takes one tablet on monday, monday and monday benzonatate 100 MG capsule 200 mg PO TID PRN (Reason: Cough) 5 Days Qty: 14 0RF fluoxetine [Prozac] 40 mg Capsule 40 mg PO HS atorvastatin 40 mg Tablet 40 mg PO HS metoprolol succinate 50 mg Tablet Extended Release 24 Hr 50 mg PO BID buspirone [BuSpar] 10 mg Tablet 10 mg PO BID losartan 25 mg Tablet 25 mg PO DAILY paroxetine HCl 40 mg Tablet 40 mg PO DAILY fluticasone propionate [Flonase] 50 mcg/actuation [place],Suspension 1 spray INTRANASAL BID Rx Instructions: administer into each nostril hydrochlorothiazide 12.5 mg Tablet 12.5 mg PO DAILY Referrals Follow up/Referrals: Phil Daly MD [Primary Care Provider] - See instructions Activity Restrictions/Add. Instructions Additional Instructions/Restrictions: You have been evaluated for facial rash, diagnosed with shingles (varicella zoster). The rash appears to be only on your forehead at this time. It is close to your eye. It is very important that you take acyclovir as prescribed. Follow-up with an eye doctor within 24 to 48 hours for repeat visual exam including slit-lamp examination. Okay to take Tylenol or Motrin for pain. Return to the emergency department at once for any new or worsening symptoms, pain, blurry vision, headache, fever, vomiting or other concerns. Clinical Impressions Clinical Impression: Shingles Instructions Patient Instructions: DI for Shingles Discharge ED Provider: Nellie Richard Adult HPI General Chief complaint: Skin/Abscess/Foreign Body Stated complaint: SWELLING AND PAIN RIGHT SIDE OF FACE Time Seen by Provider: 01/23/22 20:02 Mode of Arrival: Ambulatory Source of Information: Patient Limitations: No Limitations Description of Symptoms (Recalled from ER Triage Doc. by RN): Pt states that she noticed the right side of her scalp began to itch and burn on Monday. On Monday she noticed a small bump above her right eyebrow. She was seen by her watershed coordinator that day who told her it was likely just a pimple and to go home and squeeze it. Patient says that since then the itching and pain has continued and how has spread down her face from the top of her head down into her neck with redness. Also appears to have a swollen lymphnode under her right jaw. History of Present Illness HPI narrative: 71-year-old female presenting to the emergency department with painful, itching rash. Started last week, Monday. She had burning, itching in the front part of her scalp on the right side. Over the next few days she noticed a few small spots on her forehead now a few small spots in her right eyebrow. Skin is red and described as burning and itching. Now she is having pain that is near the corner of her eye. She wears glasses, no contacts. She has never had anything like this before. Received a shingles shot many years ago, but none recent. No medications prior to arrival. Now having an occasional headache on the right side of the forehead. Was not sudden or maximal. No blurred vision or vision loss. No fevers, chills, nausea, vomiting. No new lotions, soaps, detergents. No rashes on other parts of the skin Related Data Home Medications Medication Instructions Recorded
[2022-01-23 21:25] VITALS: BP 149/75; PULSE 59; RESP 18; TEMP 36.9; O2SAT 95
== END 2022-01-23 21:27 | disposition home or self-care (01) ==
PROVIDERS: Emergency Provider Emergency Medicine; PCP Family Medicine
DX: B02.9 Zoster without complications (principal); Z79.899 Other long term (current) drug therapy; I10 Essential (primary) hypertension; K21.9 Gastro-esophageal reflux disease without esophagitis; Z95.818 Presence of other cardiac implants and grafts; Z98.84 Bariatric surgery status
CPT/HCPCS: 99283

== ENCOUNTER 2022-01-30 22:50 | Emergency (ER) | payer MEDICARE, OTHER, SELFPAY ==
[2022-01-30 22:51] VITALS: BP 183/105; PULSE 64; RESP 20; TEMP 36.8; O2SAT 95; BMI 24.7
--- NOTE | 2022-01-30 23:10 | HMH.EDABDPAI ---
Discharge Plan Disposition Patient Disposition: Home, Self-Care Prescriptions Prescriptions: New cephalexin [cephalexin] 500 mg capsule 500 mg PO TID Qty: 30 0RF tamsulosin [Flomax] 0.4 mg capsule 0.4 mg PO DAILY Qty: 7 0RF No Action omeprazole magnesium 20 MG tablet,delayed release (DR/EC) 20 mg PO DAILY multivitamin 1 EACH capsule 2 each PO DAILY cholecalciferol (vitamin D3) 5,000 UNIT tablet 5,000 unit PO DAILY calcium carb and citrate-vitD3 1 EACH tablet extended release 1 each PO DIRECTED Rx Instructions: 2 IN THE MORNING AND 1 IN THE EVENING cyanocobalamin (vitamin B-12) 5,000 MCG capsule 5,000 mcg PO DIRECTED Rx Instructions: takes one tablet on monday, monday and monday benzonatate 100 MG capsule 200 mg PO TID PRN (Reason: Cough) 5 Days Qty: 14 0RF fluoxetine [Prozac] 40 mg Capsule 40 mg PO HS atorvastatin 40 mg Tablet 40 mg PO HS metoprolol succinate 50 mg Tablet Extended Release 24 Hr 50 mg PO BID buspirone [BuSpar] 10 mg Tablet 10 mg PO BID losartan 25 mg Tablet 25 mg PO DAILY paroxetine HCl 40 mg Tablet 40 mg PO DAILY fluticasone propionate [Flonase] 50 mcg/actuation [place],Suspension 1 spray INTRANASAL BID Rx Instructions: administer into each nostril hydrochlorothiazide 12.5 mg Tablet 12.5 mg PO DAILY acyclovir 800 mg tablet 800 mg PO .5x daily Referrals Follow up/Referrals: Phil Daly MD [Primary Care Provider] - See instructions Clinical Impressions Clinical Impression: Renal colic on right side, Acute UTI (urinary tract infection) Instructions Patient Instructions: DI for Kidney Stones Discharge ED Provider: Yonatan Briggs Abdominal Pain HPI General Chief Complaint: Abdominal Pain Stated Complaint: abd pain, HBP Time Seen by Provider: 01/30/22 23:10 Mode of Arrival: Wheelchair Source of Information: Patient, Spouse and Medical Record Limitations: No Limitations Description of Symptoms (Recalled from ER Triage Doc. by RN): Pt reports RLQ abdominal pain since yesterday. She endorses nausea w/o vomiting. Pt is tender when palpating RLQ. Her says he has had high BP readings this week at home w/ systolic pressures in the 180-190 range. Pt currently has shingles as well. History of Present Illness HPI narrative: acute onset of rt lower abd pain with nausea MD complaint: abdominal pain Onset (ago): hour(s) Consistency: intermittent Location: RLQ Severity: moderate Associated symptoms: denies other symptoms Related Data Home Medications Medication Instructions Recorded Confirmed omeprazole magnesium 20 mg 20 mg PO DAILY GERD 08/07/18 01/30/22 tablet,delayed release calcium carb,cit ER 600 mg-vit D3 1 each PO DIRECTED Supplement 08/08/18 01/30/22 12.5 mcg (500 unit) tablet,ext.rel cholecalciferol (vitamin D3) 125 5,000 unit PO DAILY SUPPLEMENT 08/08/18 01/30/22 mcg (5,000 unit) tablet cyanocobalamin (vitamin B-12) 5,000 mcg PO DIRECTED supplment 08/08/18 01/30/22 5,000 mcg capsule multivitamin 2 each PO DAILY Supplement 08/08/18 01/30/22 atorvastatin 40 mg tablet 40 mg PO HS hyperlipidemia 01/23/22 01/30/22 buspirone 10 mg tablet 10 mg PO BID Depression 01/23/22 01/30/22 fluoxetine 40 mg capsule (Prozac) 40 mg PO HS Depression 01/23/22 01/30/22 fluticasone propionate 50 1 spray intranasal BID allergies 01/23/22 01/30/22 mcg/actuation nasal spray,suspension hydrochlorothiazide 12.5 mg tablet 12.5 mg PO DAILY Hypertension 01/23/22 01/30/22 losartan 25 mg tablet 25 mg PO DAILY Hypertension 01/23/22 01/30/22 metoprolol succinate 50 mg 50 mg PO BID Hypertension 01/23/22 01/30/22 tablet,extended release 24 hr paroxetine HCl 40 mg tablet 40 mg PO DAILY Anxiety 01/23/22 01/30/22 acyclovir 800 mg tablet 800 mg PO .5x daily Shingles 01/30/22 01/30/22 Previous Rx's Medication Instructions Recorded benzonatate 1
[2022-01-30 23:15] LABS: Basophils # 0.1 K/mm3 (0-0.2); Basophils % 0.9 % (0.1-2.0); Eosinophils # 0.2 K/mm3 (0.0-0.4); Eosinophils % 2.2 % (0.1-12.0); Hematocrit 46.1 % (37.0-47.0); Hemoglobin 14.8 g/dL (12.2-16.2); Lymphocytes # 2.1 K/mm3 (0.7-4.5); Lymphocytes % 25.3 % (10-50); Mean Corpuscular HGB Conc 32.1 g/dL (31.8-35.4); Mean Corpuscular Hemoglobin 32.9 pg (27.0-31.2); Mean Corpuscular Volume 102.5 fl (81-99); Mean Platelet Volume 9.2 fl (7.4-10.4); Monocytes # 0.5 K/mm3 (0.1-1.0); Monocytes % 5.4 % (1.7-9.3); Neutrophils # 5.6 K/mm3 (1.8-7.8); Neutrophils % 66.3 % (37.0-80.0); Platelet Count 205 K/mm3 (142-424); Red Cell Distribution Width 13.4 % (11.5-17.5); White Blood Count 8.4 K/mm3 (4.8-10.8)
--- NOTE | 2022-01-30 23:17 | CT_ITS ---
PROCEDURE INFORMATION: Exam: CT Abdomen And Pelvis Without Contrast Exam date and time: 01/30/2022 11:22 PM Age: 71 years old Clinical indication: Abdominal pain; Localized; Right; Prior surgery; Surgery type: Past surgeries: Hysterectomy, bladder tuck, tummy tuck, gastric bypass, ? appendectomy; Additional info: Rlq abd pain TECHNIQUE: Imaging protocol: Computed tomography of the abdomen and pelvis without contrast. Radiation optimization: All CT scans at this facility use at least one of these dose optimization techniques: automated exposure control; mA and/or kV adjustment per patient size (includes targeted exams where dose is matched to clinical indication); or iterative reconstruction. COMPARISON: No relevant prior studies available. 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 Diaphragm: Small hiatal hernia. Liver: Unremarkable. Gallbladder and bile ducts: Unremarkable. Pancreas: Unremarkable. Spleen: Unremarkable. Adrenal glands: Unremarkable. Kidneys and ureters: Non-specific bilateral symmetric perinephric fat stranding. Distal right ureteral stone (4 mm) at the ureterovesical junction associated with mild right hydroureteronephrosis. No other renal or ureteral stones. No left hydronephrosis. Multiple simple renal cysts, including a simple renal cyst with trace milk of calcium in the mid right renal cortex. Stomach and bowel: Post-operative changes of prior [id number]. No evidence of bowel obstruction or other acute pathology. Colonic diverticulosis without evidence of acute diverticulitis. Appendix: Appendix is not visualized. Intraperitoneal space: No free fluid. No pneumoperitoneum. Vasculature: Moderate amount of calcific arterial atherosclerosis. No abdominal aortic aneurysm. Lymph nodes: Unremarkable. Urinary bladder: Bladder is decompressed, limiting evaluation. Reproductive: Status post hysterectomy. Bones/joints: No acute osseous abnormality. Soft tissues: Unremarkable. IMPRESSION: 1. Distal right ureteral stone (4 mm) at the ureterovesical junction associated with mild right hydroureteronephrosis. 2. Colonic diverticulosis without evidence of acute diverticulitis. 3. 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 4. Small hiatal hernia. 5. Additional non-acute ancillary findings are detailed above. COMMENTS: Consistent with the [employer]'s Incidental Findings Committee white paper (J Am Lobo Radiol 2018): Any incidental renal lesion less than 1 cm or classified as too small to characterize, or any incidental cystic renal lesion characterized as simple-appearing, is likely benign. No follow-up imaging is recommended for these lesions per consensus recommendations based on imaging criteria.
[2022-01-30 23:19] LABS: Microscopic, Urine URINE MICROSCOPIC (MICROSCOPIC)
--- NOTE | 2022-01-30 23:21 | PC.NURSE ---
Pt assisted to br w/ wc. Urine obtained and sent to lab
[2022-01-30 23:25] LABS: Alanine Aminotransferase 87 U/L (12-78); Albumin Level 4.1 g/dl (3.5-5.0); Albumin/Globulin Ratio 1.2 (1.1-1.8); Alkaline Phosphatase 126 U/L (38-126); Amylase 86 U/L (30-110); Anion Gap 14.8 mEq/L (5-15); Aspartate Amino Transferase 77 U/L (14-36); Bilirubin,Total 0.2 mg/dl (0.2-1.3); Blood Urea Nitrogen 26 mg/dl (7-17); Calcium 8.7 mg/dl (8.4-10.2); Carbon Dioxide 30 mmol/L (22.0-30.0); Chloride 102 mmol/L (98-107); Creatinine Clearance Estimated 50 mL/min (50-200); Estimated Glomerular Filt Rate 82 ml/min (>60); GFR (African American) 99 ML/MIN (>60); Globulin 3.3 g/dL (1.3-3.2); Glucose 112 mg/dl (74-100); Lipase 231 U/L (23-300); Potassium 3.8 mmoL/L (3.5-5.1); Sodium 143 mmol/L (136-145); Total Protein,Serum 7.4 g/dl (6.3-8.2)
[2022-01-30 23:44] LABS: C-Reactive Protein 2.2 mg/L (0-4)
[2022-01-30 23:45] LABS: Appearance,Urine CLEAR (Clear); Bilirubin,Urine Negative (Negative); Blood, Urine 2+ (Negative); Color,Urine YELLOW (Yellow); Glucose,Urine (UA) Negative (Negative); Ketones,Urine Negative (Negative); Leukocyte Esterase,Urine TRACE (Negative); Nitrate,Urine POSITIVE (Negative); PH,Urine 5.5 (5.0-8.5); Protein,Urine Negative (Negative); Specific Gravity, Urine >= 1.030 (1.005-1.030); Urobilinogen,Urine 0.2 EU/dl (0.2)
[2022-01-30 23:52] LABS: Erythrocyte Sedimentation Rate 16 mm/hr (0-30)
--- NOTE | 2022-01-31 00:02 | PC.NURSE ---
Pt assisted to bathroom with wheelchair. Pt had small bowel movement and because nauseous while on toilet. Pt assisted back to room and in bed.
[2022-01-31 00:31] VITALS: BP 195/94; PULSE 61; O2SAT 94
[2022-01-31 01:09] VITALS: BP 157/78; PULSE 58; RESP 16; TEMP 36.7; O2SAT 94
== END 2022-01-31 01:22 | disposition home or self-care (01) ==
PROVIDERS: Emergency Provider Emergency Medicine; PCP Family Medicine
DX: N39.0 Urinary tract infection, site not specified (principal); N23 Unspecified renal colic; Z79.899 Other long term (current) drug therapy; K21.9 Gastro-esophageal reflux disease without esophagitis; E78.5 Hyperlipidemia, unspecified; F41.9 Anxiety disorder, unspecified; F32.A Depression, unspecified; I10 Essential (primary) hypertension; E11.9 Type 2 diabetes mellitus without complications
CPT/HCPCS: 74176; 80053; 81001; 82150; 83690; 85025; 85651; 86140; 87086; 87088; 87186; 96365; 96367; 96375; 99284; J0696; J2405

== ENCOUNTER 2022-03-17 12:16 | Emergency (ER) | payer MEDICARE, OTHER, SELFPAY ==
[2022-03-17 12:23] VITALS: BP 104/61; PULSE 61; RESP 18; O2SAT 95; BMI 24.7
--- NOTE | 2022-03-17 12:33 | XR_ITS ---
FINAL REPORT CLINICAL HISTORY: FALL FINDINGS: RIGHT ELBOW 3 views were obtained. There is fracture of the radial head with mild distraction. The joint spaces are intact. There is a joint effusion or hemarthrosis. IMPRESSION: Fracture of the radial head with mild distraction and a joint effusion or hemarthrosis. Reviewed, Interpreted and Dictated by Humble Pedraza III, MD Transcribed by Joanna Chiu Authenticated and [facility]
--- NOTE | 2022-03-17 12:33 | XR_ITS ---
FINAL REPORT CLINICAL HISTORY: FALL COMPARISON: October 18, 2020 FINDINGS: RIGHT WRIST Three views demonstrate no acute fracture or dislocation. The visualized joint spaces are normally aligned. The joint spaces are intact. There is a small chronic calcification along the medial aspect of the wrist which is stable. IMPRESSION: No acute bony abnormality. Reviewed, Interpreted and Dictated by Humble Pedraza III, MD Transcribed by Joanna Chiu Authenticated and [facility]
--- NOTE | 2022-03-17 12:33 | XR_ITS ---
FINAL REPORT CLINICAL HISTORY: FALL FINDINGS: RIGHT FOREARM 2 views of the right forearm were obtained. There is no acute fracture or dislocation. The joints are intact. There are no soft tissue abnormalities. IMPRESSION: No acute process. Reviewed, Interpreted and Dictated by Humble Pedraza III, MD Transcribed by Joanna Chiu Authenticated and [facility]
[2022-03-17 13:10] VITALS: BP 104/61; PULSE 61; RESP 18; TEMP 36.8; O2SAT 95; BMI 24.7
--- NOTE | 2022-03-17 13:26 | EXP.UTC ---
Discharge Plan Disposition Patient Disposition: Home, Self-Care Condition: Good Prescriptions Prescriptions: No Action omeprazole magnesium 20 MG tablet,delayed release (DR/EC) 20 mg PO DAILY multivitamin 1 EACH capsule 2 each PO DAILY cholecalciferol (vitamin D3) 5,000 UNIT tablet 5,000 unit PO DAILY calcium carb and citrate-vitD3 1 EACH tablet extended release 1 each PO DIRECTED Rx Instructions: 2 IN THE MORNING AND 1 IN THE EVENING cyanocobalamin (vitamin B-12) 5,000 MCG capsule 5,000 mcg PO DIRECTED Rx Instructions: takes one tablet on monday, monday and monday benzonatate 100 MG capsule 200 mg PO TID PRN (Reason: Cough) 5 Days Qty: 14 0RF fluoxetine [Prozac] 40 mg Capsule 40 mg PO HS atorvastatin 40 mg Tablet 40 mg PO HS metoprolol succinate 50 mg Tablet Extended Release 24 Hr 50 mg PO BID buspirone [BuSpar] 10 mg Tablet 10 mg PO BID losartan 25 mg Tablet 25 mg PO DAILY paroxetine HCl 40 mg Tablet 40 mg PO DAILY fluticasone propionate [Flonase] 50 mcg/actuation [place],Suspension 1 spray INTRANASAL BID Rx Instructions: administer into each nostril hydrochlorothiazide 12.5 mg Tablet 12.5 mg PO DAILY acyclovir 800 mg tablet 800 mg PO .5x daily cephalexin [cephalexin] 500 mg capsule 500 mg PO TID Qty: 30 0RF tamsulosin [Flomax] 0.4 mg capsule 0.4 mg PO DAILY Qty: 7 0RF Referrals Follow up/Referrals: Hiren Cabrera DO [Staff Physician] - See instructions Phil Daly MD [Primary Care Provider] - See instructions Activity Restrictions/Add. Instructions Additional Instructions/Restrictions: Rest the extremity, apply ice for 15 minutes as tolerated three or four times per day, Elevate the extremity as tolerated while you are resting. Follow up with Dr. Cortez (orthopedics). I put in a referral but you need to call his office in the morning and schedule an appointment. Follow up with your regular doctor. GO TO THE ER FOR ANY WORSENING SYMPTOMS Instructions on neurovascular checks of her right hand and arm given. she verbalizes understanding. Clinical Impressions Clinical Impression: Closed fracture of head of right radius Instructions Patient Instructions: Elbow Fracture, DI for Elbow Fracture, How to Take Care of Your Splint Discharge ED Provider: [place] [facility] [place] General Stated complaint: [id number] pain in Rt arm Mode of Arrival: Ambulatory Source of Information: Patient Limitations: No Limitations Time Seen by Provider: 03/17/22 13:26 Description of Symptoms (Recalled from Triage Doc. by RN): Patient reports right arm pain from a fall she had last night. Patient fell when walking out of a ball game and tripped in the parking lot. History of Present Illness Provider Complaint: She reports right arm pain after she had last night. She was at a ball game when she tripped and fell. She came down on her right elbow and forearm. Moving elbow and twisting her forearm causes significantly worse pain. Related Data Home Medications Medication Instructions Recorded Confirmed omeprazole magnesium 20 mg 20 mg PO DAILY GERD 08/07/18 01/30/22 tablet,delayed release calcium carb,cit ER 600 mg-vit D3 1 each PO DIRECTED Supplement 08/08/18 01/30/22 12.5 mcg (500 unit) tablet,ext.rel cholecalciferol (vitamin D3) 125 5,000 unit PO DAILY SUPPLEMENT 08/08/18 01/30/22 mcg (5,000 unit) tablet cyanocobalamin (vitamin B-12) 5,000 mcg PO DIRECTED supplment 08/08/18 01/30/22 5,000 mcg capsule multivitamin 2 each PO DAILY Supplement 08/08/18 01/30/22 atorvastatin 40 mg tablet 40 mg PO HS hyperlipidemia 01/23/22 01/30/22 buspirone 10 mg tablet 10 mg PO BID Depression 01/23/22 01/30/22 fluoxetine 40 mg capsule (Prozac) 40 mg PO HS Depression 01/23/22 01/30/22 fluticasone propionate 50 1 spray intranasal BID allergies 01/23/22 01/30/22 mcg/actuation n
[2022-03-17 15:43] VITALS: BP 104/61; PULSE 61; RESP 18; TEMP 36.8; O2SAT 95
== END 2022-03-17 16:09 | disposition home or self-care (01) ==
PROVIDERS: Emergency Provider Nurse Practitioner Family; PCP Family Medicine
DX: S52.121A Displaced fracture of head of right radius, initial encounter for closed fracture (principal)
CPT/HCPCS: 29105; 73080; 73090; 73110; 99212; G0463

== ENCOUNTER 2022-08-29 08:58 | Emergency (ER) | payer MEDICARE, OTHER, SELFPAY ==
--- NOTE | 2022-08-29 09:20 | EXP.UTC ---
Discharge Plan Disposition Patient Disposition: Home, Self-Care Condition: Good Prescriptions Prescriptions: New amoxicillin [amoxicillin] 500 mg tablet 500 mg PO TID 10 Days Qty: 30 0RF benzonatate [benzonatate] 100 mg capsule 100 mg PO TIDP PRN (Reason: Cough) Qty: 30 0RF methylprednisolone 4 mg Tablets,Dose Pack 4 mg PO DIRECTED Qty: 21 0RF No Action bupropion HCl 100 mg tablet 200 mg PO BID ferrous gluconate 324 mg (37.5 mg iron) tablet 324 mg PO DAILY acarbose 25 mg tablet 50 mg PO DAILY simethicone 80 mg tablet,chewable 80 mg PO HS PRN (Reason: gasx) montelukast 10 mg tablet 10 mg PO DAILY aspirin 81 mg tablet,delayed release (DR/EC) 81 mg PO DAILY paroxetine HCl 30 mg tablet 30 mg PO DAILY benzonatate 200 mg capsule 200 mg PO TID omeprazole magnesium 20 MG tablet,delayed release (DR/EC) 20 mg PO DAILY multivitamin 1 EACH capsule 2 each PO DAILY calcium carb and citrate-vitD3 1 EACH tablet extended release 1 each PO DIRECTED Rx Instructions: 2 IN THE MORNING AND 1 IN THE EVENING cyanocobalamin (vitamin B-12) 5,000 mcg capsule 5,000 mcg PO DIRECTED Rx Instructions: 1 tab MWF cholecalciferol (vitamin D3) 125 mcg (5,000 unit) tablet 5,000 unit PO DAILY Rx Instructions: 1 tab M-F, 2 tabs SS atorvastatin 40 mg Tablet 40 mg PO HS metoprolol succinate 50 mg Tablet Extended Release 24 Hr 50 mg PO BID fluticasone propionate [Flonase] 50 mcg/actuation [place],Suspension 1 spray INTRANASAL BID Rx Instructions: administer into each nostril hydrochlorothiazide 12.5 mg Tablet 12.5 mg PO DAILY losartan 25 mg tablet 50 mg PO BID Referrals Follow up/Referrals: Phil Daly MD [Primary Care Provider] - See instructions Activity Restrictions/Add. Instructions Additional Instructions/Restrictions: Drink plenty of fluids. Take tylenol or ibuprofen for pain or fever. Take the medications as directed. Follow up with your regular doctor. GO TO THE ER FOR ANY WORSENING SYMPTOMS Throw your tooth brush away and get a new one. Clinical Impressions Clinical Impression: Strep throat Instructions Patient Instructions: DI for Strep Throat, Strep Throat Discharge ED Provider: Bobby Stockton [facility] [place] H[place] General Stated complaint: sore throat, head congestion, chills Time Seen by Provider: 08/29/22 09:20 History of Present Illness Provider Complaint: she c/o sore throat, chills, head ache and malaise for the past 2 days. Related Data Home Medications Medication Instructions Recorded Confirmed omeprazole magnesium 20 mg 20 mg PO DAILY GERD 08/07/18 08/29/22 tablet,delayed release calcium carb,cit ER 600 mg-vit D3 1 each PO DIRECTED Supplement 08/08/18 08/29/22 12.5 mcg (500 unit) tablet,ext.rel multivitamin 2 each PO DAILY Supplement 08/08/18 08/29/22 atorvastatin 40 mg tablet 40 mg PO HS hyperlipidemia 01/23/22 08/29/22 fluticasone propionate 50 1 spray intranasal BID allergies 01/23/22 08/29/22 mcg/actuation nasal spray,suspension hydrochlorothiazide 12.5 mg tablet 12.5 mg PO DAILY Hypertension 01/23/22 08/29/22 metoprolol succinate 50 mg 50 mg PO BID Hypertension 01/23/22 08/29/22 tablet,extended release 24 hr acarbose 25 mg tablet 50 mg PO DAILY . 08/01/22 08/29/22 aspirin 81 mg tablet,delayed 81 mg PO DAILY Heartburn 08/01/22 08/29/22 release bupropion HCl 100 mg tablet 200 mg PO BID Depression 08/01/22 08/29/22 cholecalciferol (vitamin D3) 125 5,000 unit PO DAILY SUPPLEMENT 08/01/22 08/29/22 mcg (5,000 unit) tablet cyanocobalamin (vitamin B-12) 5,000 mcg PO DIRECTED supplment 08/01/22 08/29/22 5,000 mcg capsule ferrous gluconate 324 mg (37.5 mg 324 mg PO DAILY Supplement 08/01/22 08/29/22 iron) tablet losartan 25 mg tablet 50 mg PO BID Hypertension 08/01/22 08/29/22 montelukast 10 mg tablet 10
[2022-08-29 09:27] LABS: UTC Strep Screen (Rapid) Positive (Negative)
[2022-08-29 09:49] VITALS: BP 133/84; PULSE 71; RESP 16; TEMP 36.8; O2SAT 95; BMI 22.6
[2022-08-29 10:08] VITALS: BP 133/84; PULSE 71; RESP 16; TEMP 36.8; O2SAT 94
== END 2022-08-29 10:00 | disposition home or self-care (01) ==
PROVIDERS: Emergency Provider Nurse Practitioner Family; PCP Family Medicine
DX: J02.0 Streptococcal pharyngitis (principal); R51.9 Headache, unspecified; R53.81 Other malaise; E11.9 Type 2 diabetes mellitus without complications; I10 Essential (primary) hypertension; E78.5 Hyperlipidemia, unspecified; F41.9 Anxiety disorder, unspecified; F32.9 Major depressive disorder, single episode, unspecified
CPT/HCPCS: 87880; 99212; 99214; G0463

== ENCOUNTER 2024-03-21 13:19 | Outpatient (CLI) | payer MEDICARE, OTHER, SELFPAY ==
--- NOTE | 2024-03-21 13:24 | XR_ITS ---
FINAL REPORT CLINICAL HISTORY: cough prior lung collapse to left lung x when she was littlle COMPARISON: 08/07/2018 FINDINGS: There is a moderate to large right pneumothorax with tension component. Right upper lobe pleural scarring is noted. The left lung is clear. The mediastinum has a normal appearance. There is moderate cardiomegaly. IMPRESSION: Tension pneumothorax. Reviewed, Interpreted and Dictated by Faraz King MD Transcribed by Paty Mccrary Authenticated and [facility]
== END 2024-03-21 23:59 | disposition home or self-care (01) ==
LOC: RAD 13:20
PROVIDERS: PCP Family Medicine; Visit Provider Family Medicine
DX: R09.89 Other specified symptoms and signs involving the circulatory and respiratory systems (principal)
CPT/HCPCS: 71046

== ENCOUNTER 2024-03-21 13:40 | Inpatient (IN) | payer MEDICARE, OTHER, SELFPAY ==
[2024-03-21] VITALS (14 sets, daily range): BP systolic 100–142; BP diastolic 64–85; PULSE 58–71; RESP 12–24; TEMP 36.5–36.8; O2SAT 91–98; BMI 26.5; BMI 26.4
--- NOTE | 2024-03-21 14:01 | PC.NURSE ---
DR KELLER AT BEDSIDE
--- NOTE | 2024-03-21 14:02 | CT_ITS ---
FINAL REPORT TECHNIQUE: Axial CT without IV contrast administration. Coronal and sagittal reconstructions were obtained and reviewed. This study was performed with techniques to keep radiation doses as low as reasonably achievable, (ALARA). Individualized dose reduction techniques using automated exposure control or adjustment of mA and/or kV according to the patient''s size were employed. CLINICAL HISTORY: PTX COMPARISON: None FINDINGS: There is a large tension right pneumothorax. Pleural effusions in the right upper lobe keep the right upper lobe partially expanded. There are numerous cystic areas within the lungs which are nonspecific but could be sequela from previous infection or lymphangioleiomyomatosis. There is no mediastinal adenopathy. A small hiatal hernia is noted. Postoperative changes are seen from gastric bypass. IMPRESSION: Large tension right pneumothorax with shift of the mediastinum. Cystic lesions scattered throughout both lungs could be sequela from previous infection or lymphangioleiomyomatosis. Reviewed, Interpreted and Dictated by Faraz King MD Transcribed by Paty Mccrary Authenticated and . [facility]
[2024-03-21 14:12] LABS: Albumin Level 4.2 g/dl (3.5-5.0); Chloride 107 mmol/L (98-107); Potassium 3.8 mmoL/L (3.5-5.1); Sodium 137 mmol/L (136-145)
[2024-03-21 14:15] LABS: Alanine Aminotransferase 63 U/L (12-78); Albumin/Globulin Ratio 1.4 (1.1-1.8); Alkaline Phosphatase 72 U/L (38-126); Anion Gap 5.8 mEq/L (5-15); Aspartate Amino Transferase 59 U/L (14-36); Bilirubin,Total 0.5 mg/dl (0.2-1.3); Blood Urea Nitrogen 26 mg/dl (7-17); Carbon Dioxide 28 mmol/L (22.0-30.0); Estimated Glomerular Filt Rate 70 ml/min (>60); GFR (African American) 85 ML/MIN (>60); Globulin 2.9 g/dL (1.3-3.2); Total Protein,Serum 7.1 g/dl (6.3-8.2)
[2024-03-21 14:16] LABS: Calcium 9.1 mg/dl (8.4-10.2); Glucose 97 mg/dl (74-100)
[2024-03-21 14:19] LABS: Activated Partial Thrombo Time 26.8 seconds (22.8-30.6); Prothrombin Time 11.2 seconds (10.1-12.5)
[2024-03-21 14:23] LABS: Hemoglobin 13.3 g/dL (12.2-16.2); Red Blood Count 3.95 M/mm3 (4.20-5.40); White Blood Count 7.3 K/mm3 (4.8-10.8)
[2024-03-21 14:24] LABS: Basophils % 0.5 % (0.1-2.0); Eosinophils # 0.2 K/mm3 (0.0-0.4); Eosinophils % 2.6 % (0.1-12.0); Hematocrit 39.2 % (37.0-47.0); Lymphocytes # 1.9 K/mm3 (0.7-4.5); Lymphocytes % 25.3 % (10-50); Mean Corpuscular HGB Conc 33.9 g/dL (31.8-35.4); Mean Corpuscular Hemoglobin 33.7 pg (27.0-31.2); Mean Corpuscular Volume 99.2 fl (81-99); Mean Platelet Volume 11.8 fl (7.4-10.4); Monocytes # 0.5 K/mm3 (0.1-1.0); Monocytes % 6.3 % (1.7-9.3); Neutrophils # 4.8 K/mm3 (1.8-7.8); Platelet Count 178 K/mm3 (142-424); Red Cell Distribution Width 12.5 % (11.5-17.5)
--- NOTE | 2024-03-21 14:31 | ED_ITS ---
Discharge Plan Disposition Patient Disposition: Admitted Condition: Good Clinical Impressions Clinical Impression: Pneumothorax, right, Respiratory failure, acute Discharge ED Provider: Eloina Fisher General Adult HPI <Eloina Fisher DO - Last Filed: 03/21/24 16:32> General Chief complaint: Shortness of Breath/Dyspnea Stated complaint: cough, SOA Time Seen by Provider: 03/21/24 13:55 History of Present Illness HPI narrative: This patient is a 73-year-old female with a history of CAD on aspirin, type 2 diabetes, hypertension, and hyperlipidemia presenting to the emergency department for evaluation with concern for shortness of breath. Patient was evaluated outpatient for several days of shortness of breath by her primary care provider and was referred here for chest x-ray. Primary care provider was immediately notified by radiology that the patient had a large pneumothorax, so he referred her directly to the emergency department. She states that she has had shortness of breath for several days as well as some right rib pain. She notes a history of spontaneous pneumothoraces on the left side as a young girl but denies any recent chest trauma or manipulation otherwise. She is a never smoker with no known lung problems reported. She takes aspirin but no blood thinners. Related Data Home Medications ?Medication ?Instructions ?Recorded ?Confirmed omeprazole magnesium 20 mg 20 mg PO DAILY GERD 08/07/18 03/21/24 tablet,delayed release calcium ER 600 mg (as carb,cit)-D3 1 each PO DIRECTED Supplement 08/08/18 03/21/24 12.5 mcg (500 unit) tablet, ext.rel multivitamin 2 each PO DAILY Supplement 08/08/18 03/21/24 atorvastatin 40 mg tablet 20 mg PO HS hyperlipidemia 01/23/22 03/21/24 fluticasone propionate 50 2 spray intranasal BID allergies 01/23/22 03/21/24 mcg/actuation nasal spray,suspension hydrochlorothiazide 12.5 mg tablet 12.5 mg PO DAILY Hypertension 01/23/22 03/21/24 metoprolol succinate 50 mg 50 mg PO BID Hypertension 01/23/22 03/21/24 tablet,extended release 24 hr acarbose 25 mg tablet 50 mg PO DAILY . 08/01/22 03/21/24 aspirin 81 mg tablet,delayed 81 mg PO DAILY Heartburn 08/01/22 03/21/24 release bupropion HCl 100 mg tablet 200 mg PO BID Depression 08/01/22 03/21/24 cholecalciferol (vitamin D3) 125 5,000 unit PO DAILY SUPPLEMENT 08/01/22 03/21/24 mcg (5,000 unit) tablet cyanocobalamin (vitamin B-12) 5,000 mcg PO DIRECTED supplment 08/01/22 03/21/24 5,000 mcg capsule ferrous gluconate 324 mg (37.5 mg 324 mg PO DAILY Supplement 08/01/22 03/21/24 iron) tablet losartan 25 mg tablet 50 mg PO BID Hypertension 08/01/22 03/21/24 montelukast 10 mg tablet 10 mg PO DAILY Allergy symptoms 08/01/22 03/21/24 paroxetine HCl 30 mg tablet 30 mg PO DAILY Depression 08/01/22 03/21/24 simethicone 80 mg chewable tablet 80 mg PO HS PRN gasx 08/01/22 03/21/24 semaglutide 0.25 mg or 0.5 mg (2 0.5 mg SQ WEEKLY 03/21/24 03/21/24 mg/3 mL) subcutaneous pen injector (Ozempic) Previous Rx's ?Medication ?Instructions ?Recorded azithromycin 500 mg tablet 500 mg PO DAILY #10 tabs 03/21/24 Allergies Allergy/AdvReac Type Severity Reaction Status Date / Time No Known Allergies Allergy Verified 03/21/24 10:39 [facility] <Eloina Fisher DO - Last Filed: 03/21/24 16:32> [facility] Disclaimer: The information contained in this section may have been updated after the patient was seen, as this information can be updated by other users. Medical History Anxiety Depression Hyperlipidemia Hypertension Diabetes Surgical History History of heart artery stent Hx laparoscopic cholecystectomy H/O total hysterectomy Hx of gastric bypass Family History Father Heart attack Social History (Updated 03/21/24 @ 18:56 by Re Conley RN) Smoking Status: Never smoker second hand exposure: No alcohol intake: never current occupational status: other Travel in the last 8 weeks: None household members: spouse housing: house caffeine: No Have you lived/traveled outside [place] in past 30 days?: No Contact w/someone who lives/traveled outside US past 30 days?: No Exposure to someone with infectious disease in past 14 days?: No Do you have a fever (greater than 100.4 F or 38 C)?: No Have you tested positive for COVID-19: No Exposed to someone with COVID-19 in past 14 days?: No Do you have a sore throat?: No Do you have a cough?: Yes Do you have any weakness?: No Are you experiencing any nausea/vomitting?: No Do you have any diarrhea?: No Are you experiencing any unusual bleeding?: No Do you have any muscle aches/pain?: No Do you have any abdominal pain?: No Are you experiencing loss of taste or smell?: No Other Medical History Have you received the Flu Vaccine for this season: Yes Have you received the Pneumonia Vaccine: Yes <Eloina Fisher DO - Last Filed: 03/21/24 16:32> ROS Obtained: Yes All systems reviewed & no additional complaints except as documented Physical Exam <Eloina Fisher DO - Last Filed: 03/21/24 16:32> General General appearance: alert Comment: Uncomfortable appearing, but not in any respiratory distress Head Head exam: atraumatic and normocephalic Eye Eye exam: Present normal appearance, PERRL and EOMI ENT ENT exam: Present normal exam, normal oropharynx, mucous membranes moist and normal external ear exam Neck Neck exam: Present normal inspection, full ROM and trachea midline; Absent tenderness Chest Chest inspection: Present normal inspection and symmetric chest wall rise; Absent tenderness Respiratory Respiratory exam: Present other (Diminished breath sounds on the right); Absent respiratory distress, wheezes, stridor or accessory muscle use Cardiovascular Cardiovascular exam: Present regular rate, normal rhythm and other (No tachycardia, normotensive) Abdominal Exam Abdominal exam: Present soft; Absent distention, tenderness or guarding Extremities Exam Extremities exam: Present normal inspection, full ROM and normal capillary refill; Absent tenderness or edema Back Exam Back exam: Present normal inspection and full ROM; Absent tenderness Neurological Exam Neurological exam: Present alert, oriented X3, CN II-XII intact and normal gait; Absent motor sensory deficit Psychiatric Psychiatric exam: Present normal affect and normal mood Skin Skin exam: Present warm and dry Medical Decision Making <DO Willie Pearson Last Filed: 03/21/24 16:32> Medical Records Medical records reviewed: Yes I reviewed the patient's medical records. Screening: Per USPSTF and CDC recommendations, given the prevalence of disease in our region, it is our hospital?s policy to screen for HIV and viral Hepatitis for all patients aged 18 and over and those with ongoing risk factors. Radhames Inquiry Pt receiving controlled substance: No Vital Signs: 03/21/24 13:41 03/21/24 14:30 03/21/24 15:44 Temperature 98.2 F Temperature Source Oral Pulse Rate 71 64 Pulse Rate [Right] 69 Respiratory Rate 24 13 Blood Pressure 122/85 113/77 Blood Pressure [Right Arm] 142/71 H Blood Pressure Mean [Right Arm] 94 Blood Pressure Source [Right Arm] Automatic Cuff 02 Sat by Pulse Oximetry 92 L 96 96 Oxygen Delivery Method Room Air Nasal Cannula Nasal Cannula Oxygen Flow Rate (LPM) 4 4 03/21/24 15:59 03/21/24 16:00 03/21/24 16:15 Temperature Temperature Source Pulse Rate 64 66 59 L Pulse Rate [Right] Respiratory Rate 17 18 18 Blood Pressure 123/69 106/74 L 106/74 L Blood Pressure [Right Arm] Blood Pressure Mean [Right Arm] Blood Pressure Source [Right Arm] 02 Sat by Pulse Oximetry 97 96 97 Oxygen Delivery Method Nasal Cannula Nasal Cannula Nasal Cannula Oxygen Flow Rate (LPM) 4 4 2 03/21/24 16:30 03/21/24 17:00 03/21/24 17:55 Temperature 98.0 F Temperature Source Oral Pulse Rate 61 63 60 Pulse Rate [Right] Respiratory Rate 12 14 18 Blood Pressure 107/69 L 108/64 L 106/65 L Blood Pressure [Right Arm] Blood Pressure Mean [Right Arm] Blood Pressure Source [Right Arm] 02 Sat by Pulse Oximetry 97 97 Oxygen Delivery Method Room Air Oxygen Flow Rate (LPM) Lab Data Lab results reviewed: Yes I reviewed the patient's lab results. Lab Results 03/21/24 14:00: WBC 7.3, RBC 3.95 L, Hgb 13.3, Hct 39.2, MCV 99.2 H, MCH 33.7 H, MCHC 33.9, RDW 12.5, Plt Count 178, MPV 11.8 H, Neut % (Auto) 65.0, Lymph % (Auto) 25.3, [place] % (Auto) 6.3, Eos % (Auto) 2.6, Baso % (Auto) 0.5, Neut # (Auto) 4.8, Lymph # (Auto) 1.9, [place] # (Auto) 0.5, Eos # (Auto) 0.2, Baso # (Auto) 0.0, PT 11.2, INR 1.00, APTT 26.8, Sodium 137, Potassium 3.8, Chloride 107, Carbon Dioxide 28, Anion Gap 5.8, BUN 26 H, Creatinine 0.80, Estimated GFR 70, Est GFR ( Amer) 85, Glucose 97, Calcium 9.1, Total Bilirubin 0.5, AST 59 H, ALT 63, Alkaline Phosphatase 72, Troponin I < 0.01, Total Protein 7.1, Albumin 4.2, Globulin 2.9, Albumin/Globulin Ratio 1.4, HIV Ag/Ab Combo Qual Negative 03/21/24 14:00 03/21/24 14:00 Orders (Tests/Meds): ED MEDICATIONS Generic Name Dose Route Start Last Admin Trade Name Freq PRN Reason Stop Dose Admin Acetaminophen 650 mg 03/21/24 16:16 Acetaminophen 325mg Tab PO 04/20/24 16:15 Q4HP PRN Fever or Mild Pain (1-3) Hydrocodone Bitart/Acetaminophen 1 tab 03/21/24 16:16 03/21/24 19:38 Hydrocodone/Apap 5/325 Mg Tablet PO 04/20/24 16:15 1 tab Q4HP PRN Administration Mild to Moderate Pain (1-6) Hydrocodone Bitart/Acetaminophen 2 tab 03/21/24 16:16 03/21/24 20:57 Hydrocodone/Apap 5/325 Mg Tablet PO 04/20/24 16:15 1 tab Q4HP PRN Administration Moderate to Severe Pain (4-10) Aspirin 81 mg 03/22/24 09:00 Aspirin Ec 81mg Tablet PO 04/21/24 08:59 DAILY [facility] Atorvastatin Calcium 20 mg 03/22/24 21:00 Atorvastatin 40mg Tablet PO 04/21/24 20:59 HS [facility] Bupropion HCl 200 mg 03/22/24 09:00 Bupropion Hcl 100 Mg Tablet PO 04/21/24 08:59 BID [facility] Insulin Human Lispro 0 unit 03/22/24 06:00 Humalog 100 Units/Ml 10ml Vial (Ssi) SUBCUT 04/21/24 05:59 ACHS [facility] Protocol Non-Formulary Medication 324 mg 03/22/24 09:00 Ferrous Gluconate PO 04/21/24 08:59 DAILY [facility] Pantoprazole Sodium 40 mg 03/21/24 21:05 03/21/24 21:30 Pantoprazole 40mg Tablet PO 04/20/24 21:04 40 mg HS [facility] Administration Discontinued Medications Generic Name Dose Route Start Last Admin Trade Name Freq PRN Reason Stop Dose Admin Enoxaparin Sodium 40 mg 03/22/24 09:00 Enoxaparin 40mg/0.4ml Syringe SUBCUT 04/21/24 08:59 DAILY [facility] Fentanyl Citrate 75 mcg 03/21/24 14:37 03/21/24 15:40 Fentanyl 100mcg/2ml Vial IV 03/21/24 14:38 50 mcg ONCE ONE Administration Lidocaine HCl 10 ml 03/21/24 14:37 03/21/24 15:50 Lidocaine 1% 10ml Mdv IJ 03/21/24 14:38 10 ml ONCE ONE Administration Morphine Sulfate 4 mg 03/21/24 16:13 03/21/24 16:42 Morphine 4mg/Ml Syringe IV 03/21/24 16:14 4 mg ONCE ONE Administration Morphine Sulfate 2 mg 03/21/24 22:30 03/21/24 22:39 Morphine 2mg/Ml Syringe IV 03/21/24 22:31 2 mg ONCE ONE Administration Ondansetron HCl 4 mg 03/21/24 14:37 03/21/24 15:38 Ondansetron 4mg/2ml Vial IV 03/21/24 14:38 4 mg ONCE ONE Administration ORDERS Category Date Time Status CT chest wo con Stat Cat Scan 03/21/24 14:02 Completed CXR --portable [XR chest portable] Stat Exams 03/21/24 15:55 Completed XR chest portable Routine Exams 03/22/24 06:30 Ordered CBC w/Auto Diff [Complete Blood Count Auto Diff] Stat Lab 03/21/24 14:00 Completed CMP [Comprehensive Metabolic Panel] Stat Lab 03/21/24 14:00 Completed Complete Blood Count Auto Diff AMLAB Lab 03/22/24 06:00 Ordered Complete Blood Count Auto Diff [facility]AB Lab 03/23/24 06:00 Ordered Complete Blood Count Auto Diff [facility] Lab 03/24/24 06:00 Ordered Complete Blood Count Auto Diff [facility] Lab 03/25/24 06:00 Ordered Complete Blood Count Auto Diff [facility] Lab 03/26/24 06:00 Ordered Comprehensive Metabolic Panel [facility] Lab 03/22/24 06:00 Ordered Comprehensive Metabolic Panel [facility] Lab 03/23/24 06:00 Ordered Comprehensive Metabolic Panel [facility] Lab 03/24/24 06:00 Ordered Comprehensive Metabolic Panel [facility] Lab 03/25/24 06:00 Ordered Comprehensive Metabolic Panel [facility] Lab 03/26/24 06:00 Ordered HIV Combo Stat Lab 03/21/24 14:00 Completed Hep C Ab with Reflex to RNA Stat Lab 03/21/24 14:00 Received Magnesium [facility] Lab 03/22/24 06:00 Ordered Magnesium [facility] Lab 03/23/24 06:00 Ordered Magnesium [facility] Lab 03/24/24 06:00 Ordered Magnesium [facility] Lab 03/25/24 06:00 Ordered Magnesium AMLAB Lab 03/26/24 06:00 Ordered PT INR [Prothrombin Time INR] Stat Lab 03/21/24 14:00 Completed PTT [Activated Partial Thrombo Time] Stat Lab 03/21/24 14:00 Completed Troponin I Q3H Lab 03/21/24 19:10 Completed Troponin I Q3H Lab 03/21/24 23:27 Completed Troponin I Stat Lab 03/21/24 14:00 Completed ECG Data Tracing #1: I reviewed this ECG and interpreted as documented below: Normal sinus rhythm with a ventricular rate of [address] changes concerning for ischemia. Normal intervals. ECG initial impression date: 03/21/24 ECG initial impression time: 13:51 Medical Decision Narrative: In summary, this patient is a 73-year-old female presenting to the Emergency Department for evaluation of shortness of breath with pneumothorax and outpatient chest x-ray. Differential diagnoses considered include but are not limited to spontaneous pneumothorax, traumatic pneumothorax, lung bleb, pneumonia. Ruling out the most morbid conditions drove assessment. It should be noted patient's history includes type 2 diabetes, hypertension, lipidemia which may or may not be at goal therapy. This complicates all aspects of care by increasing patient's risk for morbidity. I reviewed patient's past medical records and noted outpatient x-ray today showing pneumothorax. Radiologist concern for tension physiology, but the patient has no tension physiology on clinical exam. O2 saturation was 92% on room air with increased work of breathing, so she was placed on supplemental oxygen. She is normotensive and nontachycardic.. I had an interactive discussion with the radiologist who expressed concern over tension physiology on chest x-ray with right pneumothorax, but she does not clinically have tension physiology based on her vital signs and exam. Workup included CT chest and basic lab evaluation as well as EKG. EKG is reassuring. I independently interpreted CT scan prior to the radiologist read and noted formation of right pneumothorax as well as possible underlying cystic lung disease. Please see their read for final interpretation. Labs were obtained that demonstrated reassuring CBC and chemistry. After full risk versus benefit was explained, patient consented to a right chest tube placement with a [place] catheter. I discussed the case with pulmonology prior to this. Dr. Varela placed the tube, which the patient tolerated well. Placement confirmed on chest x-ray with reexpansion of the lung. Given this, I had an interactive discussion with the hospitalist who admitted the patient in stable condition. Patient was admitted for further evaluation and management of respiratory failure in the setting of spontaneous pneumothorax <Eugene Varela MD - Last Filed: 03/22/24 00:56> Vital Signs: 03/21/24 13:41 03/21/24 14:30 03/21/24 15:44 Temperature 98.2 F Temperature Source Oral Pulse Rate 71 64 Pulse Rate [Right] 69 Respiratory Rate 24 13 Blood Pressure 122/85 113/77 Blood Pressure [Right Arm] 142/71 H Blood Pressure Mean [Right Arm] 94 Blood Pressure Source [Right Arm] Automatic Cuff 02 Sat by Pulse Oximetry 92 L 96 96 Oxygen Delivery Method Room Air Nasal Cannula Nasal Cannula Oxygen Flow Rate (LPM) 4 4 03/21/24 15:59 03/21/24 16:00 03/21/24 16:15 Temperature Temperature Source Pulse Rate 64 66 59 L Pulse Rate [Right] Respiratory Rate 17 18 18 Blood Pressure 123/69 106/74 L 106/74 L Blood Pressure [Right Arm] Blood Pressure Mean [Right Arm] Blood Pressure Source [Right Arm] 02 Sat by Pulse Oximetry 97 96 97 Oxygen Delivery Method Nasal Cannula Nasal Cannula Nasal Cannula Oxygen Flow Rate (LPM) 4 4 2 03/21/24 16:30 03/21/24 17:00 03/21/24 17:55 Temperature 98.0 F Temperature Source Oral Pulse Rate 61 63 60 Pulse Rate [Right] Respiratory Rate 12 14 18 Blood Pressure 107/69 L 108/64 L 106/65 L Blood Pressure [Right Arm] Blood Pressure Mean [Right Arm] Blood Pressure Source [Right Arm] 02 Sat by Pulse Oximetry 97 97 Oxygen Delivery Method Room Air Oxygen Flow Rate (LPM) Lab Data Lab Results 03/21/24 14:00: WBC 7.3, RBC 3.95 L, Hgb 13.3, Hct 39.2, MCV 99.2 H, MCH 33.7 H, MCHC 33.9, RDW 12.5, Plt Count 178, MPV 11.8 H, Neut % (Auto) 65.0, Lymph % (Auto) 25.3, [place] % (Auto) 6.3, Eos % (Auto) 2.6, Baso % (Auto) 0.5, Neut # (Auto) 4.8, Lymph # (Auto) 1.9, [place] # (Auto) 0.5, Eos # (Auto) 0.2, Baso # (Auto) 0.0, PT 11.2, INR 1.00, APTT 26.8, Sodium 137, Potassium 3.8, Chloride 107, Carbon Dioxide 28, Anion Gap 5.8, BUN 26 H, Creatinine 0.80, Estimated GFR 70, Est GFR ( Amer) 85, Glucose 97, Calcium 9.1, Total Bilirubin 0.5, AST 59 H, ALT 63, Alkaline Phosphatase 72, Troponin I < 0.01, Total Protein 7.1, Albumin 4.2, Globulin 2.9, Albumin/Globulin Ratio 1.4, HIV Ag/Ab Combo Qual Negative Orders (Tests/Meds): ED MEDICATIONS Generic Name Dose Route Start Last Admin Trade Name Freq PRN Reason Stop Dose Admin Acetaminophen 650 mg 03/21/24 16:16 Acetaminophen 325mg Tab PO 04/20/24 16:15 Q4HP PRN Fever or Mild Pain (1-3) Hydrocodone Bitart/Acetaminophen 1 tab 03/21/24 16:16 03/21/24 19:38 Hydrocodone/Apap 5/325 Mg Tablet PO 04/20/24 16:15 1 tab Q4HP PRN Administration Mild to Moderate Pain (1-6) Hydrocodone Bitart/Acetaminophen 2 tab 03/21/24 16:16 03/21/24 20:57 Hydrocodone/Apap 5/325 Mg Tablet PO 04/20/24 16:15 1 tab Q4HP PRN Administration Moderate to Severe Pain (4-10) Aspirin 81 mg 03/22/24 09:00 Aspirin Ec 81mg Tablet PO 04/21/24 08:59 DAILY [facility] Atorvastatin Calcium 20 mg 03/22/24 21:00 Atorvastatin 40mg Tablet PO 04/21/24 20:59 HS [facility] Bupropion HCl 200 mg 03/22/24 09:00 Bupropion Hcl 100 Mg Tablet PO 04/21/24 08:59 BID [facility] Insulin Human Lispro 0 unit 03/22/24 06:00 Humalog 100 Units/Ml 10ml Vial (Ssi) SUBCUT 04/21/24 05:59 ACHS [facility] Protocol Non-Formulary Medication 324 mg 03/22/24 09:00 Ferrous Gluconate PO 04/21/24 08:59 DAILY [facility] Pantoprazole Sodium 40 mg 03/21/24 21:05 03/21/24 21:30 Pantoprazole 40mg Tablet PO 04/20/24 21:04 40 mg HS [facility] Administration Discontinued Medications Generic Name Dose Route Start Last Admin Trade Name Freq PRN Reason Stop Dose Admin Enoxaparin Sodium 40 mg 03/22/24 09:00 Enoxaparin 40mg/0.4ml Syringe SUBCUT 04/21/24 08:59 DAILY [facility] Fentanyl Citrate 75 mcg 03/21/24 14:37 03/21/24 15:40 Fentanyl 100mcg/2ml Vial IV 03/21/24 14:38 50 mcg ONCE ONE Administration Lidocaine HCl 10 ml 03/21/24 14:37 03/21/24 15:50 Lidocaine 1% 10ml Mdv IJ 03/21/24 14:38 10 ml ONCE ONE Administration Morphine Sulfate 4 mg 03/21/24 16:13 03/21/24 16:42 Morphine 4mg/Ml Syringe IV 03/21/24 16:14 4 mg ONCE ONE Administration Morphine Sulfate 2 mg 03/21/24 22:30 03/21/24 22:39 Morphine 2mg/Ml Syringe IV 03/21/24 22:31 2 mg ONCE ONE Administration Ondansetron HCl 4 mg 03/21/24 14:37 03/21/24 15:38 Ondansetron 4mg/2ml Vial IV 03/21/24 14:38 4 mg ONCE ONE Administration ORDERS Category Date Time Status CT chest wo con Stat Cat Scan 03/21/24 14:02 Completed CXR --portable [XR chest portable] Stat Exams 03/21/24 15:55 Completed XR chest portable Routine Exams 03/22/24 06:30 Ordered CBC w/Auto Diff [Complete Blood Count Auto Diff] Stat Lab 03/21/24 14:00 Completed CMP [Comprehensive Metabolic Panel] Stat Lab 03/21/24 14:00 Completed Complete Blood Count Auto Diff [facility] Lab 03/22/24 06:00 Ordered Complete Blood Count Auto Diff [facility] Lab 03/23/24 06:00 Ordered Complete Blood Count Auto Diff [facility] Lab 03/24/24 06:00 Ordered Complete Blood Count Auto Diff [facility] Lab 03/25/24 06:00 Ordered Complete Blood Count Auto Diff [facility] Lab 03/26/24 06:00 Ordered Comprehensive Metabolic Panel [facility] Lab 03/22/24 06:00 Ordered Comprehensive Metabolic Panel [facility] Lab 03/23/24 06:00 Ordered Comprehensive Metabolic Panel [facility] Lab 03/24/24 06:00 Ordered Comprehensive Metabolic Panel [facility] Lab 03/25/24 06:00 Ordered Comprehensive Metabolic Panel [facility] Lab 03/26/24 06:00 Ordered HIV Combo Stat Lab 03/21/24 14:00 Completed Hep C Ab with Reflex to RNA Stat Lab 03/21/24 14:00 Received Magnesium [facility] Lab 03/22/24 06:00 Ordered Magnesium [facility] Lab 03/23/24 06:00 Ordered Magnesium [facility] Lab 03/24/24 06:00 Ordered Magnesium [facility] Lab 03/25/24 06:00 Ordered Magnesium [facility] Lab 03/26/24 06:00 Ordered PT INR [Prothrombin Time INR] Stat Lab 03/21/24 14:00 Completed PTT [Activated Partial Thrombo Time] Stat Lab 03/21/24 14:00 Completed Troponin I Q3H Lab 03/21/24 19:10 Completed Troponin I Q3H Lab 03/21/24 23:27 Completed Troponin I Stat Lab 03/21/24 14:00 Completed Procedures <Eugene Varela MD - Last Filed: 03/22/24 00:56> Chest Tube Chest Tube 1: Chest Tube Location: right Chest Tube Prep: Yes betadine prep Local Anesthetic: lidocaine 1% Amount of anesthesia used (mL): 5 Post Procedure CXR?: Yes Patient Tolerated Procedure: Yes Critical Care <Eloina Fisher, DO - Last Filed: 03/21/24 16:32> Critical Care Time Critical Care Time: Yes Attestation: On 03/21/24, the high probability of a clinically significant, sudden or life threatening deterioration of the following system(s) required my full and direct attention, intervention and personal management. The time I documented below is in addition to time spent performing reported procedures but includes the following listed in this critical care notation. Total Time Total Critical Care Time: 30
[2024-03-21] MEDS: ONDANSETRON 4MG/2ML VIAL 4 MG IV (15:38)
[2024-03-21] MEDS: FENTANYL 100MCG/2ML VIAL 75 MCG IV (15:40)
[2024-03-21] MEDS: LIDOCAINE 1% 10ML MDV 10 ML IJ (15:50)
--- NOTE | 2024-03-21 15:55 | XR_ITS ---
FINAL REPORT CLINICAL HISTORY: POST chest Tube COMPARISON: 2 hours prior FINDINGS: There has been interval placement of a right pigtail pleural catheter with resolution of the right pneumothorax. There has been resolution of the tension component as well. Linear density in the right midlung is compatible with atelectasis. There is no pleural effusion. Mediastinum is unremarkable. Heart size is normal. IMPRESSION: Interval placement right pigtail pleural catheter with resolution of right pneumothorax. Reviewed, Interpreted and Dictated by Faraz King MD Transcribed by Paty Mccrary Authenticated and [facility]
--- NOTE | 2024-03-21 16:11 | PC.NURSE ---
DR KELLER SPEAKING WITH HOSPITALIST
[2024-03-21] MEDS: MORPHINE 4MG/ML SYRINGE 4 MG IV (16:42)
[2024-03-21 16:48] LABS: Troponin I < 0.01 ng/ml (0.00-0.034)
--- NOTE | 2024-03-21 16:50 | PC.NURSE ---
COMMUNITY CHEST OFFICER NOTIFIED OF ADMISSION
[2024-03-21 17:06] LABS: HIV Combo NEGATIVE (Negative)
[2024-03-21] MEDS: HYDROCODONE/APAP 5/325 MG TABLET 1 TAB PO (19:38)
[2024-03-21 19:46] LABS: Troponin I < 0.01 ng/ml (0.00-0.034)
--- NOTE | 2024-03-21 20:52 | P.HP_ITS ---
History of Present Illness *Admission Date: 03/21/24 *Reason for visit:: Pneumothorax *History of present illness: Ginger Gooden is a 73 year old female with a medication history of spontaneous pneumothorax > 20 years ago (requiring chest tubes, runs in family), hypertension, type 2 diabets, CAD, GERD who presents with worsening cough and SOB. She states it began about 2-3 ago when he began feeling dyspnea with exertion with worsening non-productive cough. Denies chest pain, dizziness. Over the past day she began having worsening right rib pain and proceeded to the ED. CTA chest showed large tension pneumothorax of right lung and scattered cystic lesions, though no tension physiology was noted on vitals or exam. Chest tube was place with quick relief of symptoms, but continues to have right rib pain. Workup otherwise unremarkable. Case discussed with ED provider and decision was made to admit patient for pneumothorax s/p chest tube decompression. [facility] Disclaimer: The information contained in this section may have been updated after the patient was seen, as this information can be updated by other users. Medical History Anxiety Depression Hyperlipidemia Hypertension Diabetes Surgical History History of heart artery stent Hx laparoscopic cholecystectomy H/O total hysterectomy Hx of gastric bypass Family History Father Heart attack Social History (Updated 03/21/24 @ 18:56 by Re Conley RN) Smoking Status: Never smoker second hand exposure: No alcohol intake: never current occupational status: other Travel in the last 8 weeks: None household members: spouse housing: house caffeine: No Have you lived/traveled outside US in past 30 days?: No Contact w/someone who lives/traveled outside US past 30 days?: No Exposure to someone with infectious disease in past 14 days?: No Do you have a fever (greater than 100.4 F or 38 C)?: No Have you tested positive for COVID-19: No Exposed to someone with COVID-19 in past 14 days?: No Do you have a sore throat?: No Do you have a cough?: Yes Do you have any weakness?: No Are you experiencing any nausea/vomitting?: No Do you have any diarrhea?: No Are you experiencing any unusual bleeding?: No Do you have any muscle aches/pain?: No Do you have any abdominal pain?: No Are you experiencing loss of taste or smell?: No Other Medical History Have you received the Flu Vaccine for this season: Yes Have you received the Pneumonia Vaccine: Yes Meds Home Medications and Allergies Home Medications ?Medication ?Instructions ?Recorded ?Confirmed ?Type omeprazole magnesium 20 mg 20 mg PO DAILY GERD 08/07/18 03/21/24 History tablet,delayed release calcium ER 600 mg (as carb,cit)-D3 1 each PO DIRECTED Supplement 08/08/18 03/21/24 History 12.5 mcg (500 unit) tablet, ext.rel multivitamin 2 each PO DAILY Supplement 08/08/18 03/21/24 History atorvastatin 40 mg tablet 20 mg PO HS hyperlipidemia 01/23/22 03/21/24 History fluticasone propionate 50 2 spray intranasal BID allergies 01/23/22 03/21/24 History mcg/actuation nasal spray,suspension hydrochlorothiazide 12.5 mg tablet 12.5 mg PO DAILY Hypertension 01/23/22 03/21/24 History metoprolol succinate 50 mg 50 mg PO BID Hypertension 01/23/22 03/21/24 History tablet,extended release 24 hr acarbose 25 mg tablet 50 mg PO DAILY . 08/01/22 03/21/24 History aspirin 81 mg tablet,delayed 81 mg PO DAILY Heartburn 08/01/22 03/21/24 History release bupropion HCl 100 mg tablet 200 mg PO BID Depression 08/01/22 03/21/24 History cholecalciferol (vitamin D3) 125 5,000 unit PO DAILY SUPPLEMENT 08/01/22 03/21/24 History mcg (5,000 unit) tablet cyanocobalamin (vitamin B-12) 5,000 mcg PO DIRECTED supplment 08/01/22 03/21/24 History 5,000 mcg capsule ferrous gluconate 324 mg (37.5 mg 324 mg PO DAILY Supplement 08/01/22 03/21/24 History iron) tablet losartan 25 mg tablet 50 mg PO BID Hypertension 08/01/22 03/21/24 History montelukast 10 mg tablet 10 mg PO DAILY Allergy symptoms 08/01/22 03/21/24 History paroxetine HCl 30 mg tablet 30 mg PO DAILY Depression 08/01/22 03/21/24 History simethicone 80 mg chewable tablet 80 mg PO HS PRN gasx 08/01/22 03/21/24 History azithromycin 500 mg tablet 500 mg PO DAILY #10 tabs 03/21/24 03/21/24 Rx semaglutide 0.25 mg or 0.5 mg (2 0.5 mg SQ WEEKLY 03/21/24 03/21/24 History mg/3 mL) subcutaneous pen injector (Ozempic) New Prescriptions to Start Prescriptions: Allergies Allergy/AdvReac Type Severity Reaction Status Date / Time No Known Allergies Allergy Verified 03/21/24 10:39 Exam Data for Last 24 hours Vital signs and Labs for Last 24 Hours: Temp Pulse Resp BP Pulse Ox O2 Del Method O2 Flow Rate 97.8 F 62 16 100/70 L 96 Nasal Cannula 1 03/21/24 20:00 03/21/24 20:00 03/21/24 20:00 03/21/24 20:00 03/21/24 20:00 03/21/24 20:00 03/21/24 20:00 Laboratory Results - last 24 hr 03/21/24 14:00: WBC 7.3, RBC 3.95 L, Hgb 13.3, Hct 39.2, MCV 99.2 H, MCH 33.7 H, MCHC 33.9, RDW 12.5, Plt Count 178, MPV 11.8 H, Neut % (Auto) 65.0, Lymph % (Auto) 25.3, [place] % (Auto) 6.3, Eos % (Auto) 2.6, Baso % (Auto) 0.5, Neut # (Auto) 4.8, Lymph # (Auto) 1.9, [place] # (Auto) 0.5, Eos # (Auto) 0.2, Baso # (Auto) 0.0, PT 11.2, INR 1.00, APTT 26.8, Sodium 137, Potassium 3.8, Chloride 107, Carbon Dioxide 28, Anion Gap 5.8, BUN 26 H, Creatinine 0.80, Estimated GFR 70, Est GFR ( Amer) 85, Glucose 97, Calcium 9.1, Total Bilirubin 0.5, AST 59 H, ALT 63, Alkaline Phosphatase 72, Troponin I < 0.01, Total Protein 7.1, Albumin 4.2, Globulin 2.9, Albumin/Globulin Ratio 1.4, HIV Ag/Ab Combo Qual Negative 03/21/24 19:10: Troponin I < 0.01 I & O for Last 24 hours: Intake & Output 03/18/24 03/19/24 03/20/24 03/21/24 23:59 23:59 23:59 23:59 Weight 65.516 kg Constitutional Constitutional: no acute distress *Routine HEENT Exam Head: Present normocephalic Eye: Present EOMI and PERRL ENT: Present mucous membranes moist *Routine Neck Exam Neck: Present supple; Absent lymphadenopathy *Routine Respiratory Exam Respiratory: Present CTA bilaterally *Routine Cardiovascular Exam Cardiovascular: Present RRR *Routine Abdominal Exam Abdominal: Present soft and normoactive bowel sounds; Absent tenderness *Routine Rectal Exam Rectal:: deferred *Routine Genitalia Exam Genitalia:: deferred *Routine Extremities Exam Extremities: Absent cyanosis, clubbing or edema *Routine Skin Exam Skin: Present warm; Absent rash *Routine Neurological Exam Neurological: Present alert and oriented X3 Assessment and Plan *Assessment and plan (1) Pneumothorax, right: Status: Acute Category: Medical Code(s): J93.9 - Pneumothorax, unspecified Plan Ginger Gooden is a 73 year old female with a medication history of spontaneous pneumothorax > 20 years ago (requiring chest tubes, runs in family), hypertension, type 2 diabets, CAD, GERD who presents with worsening cough and SOB. She states it began about 2-3 ago when he began feeling dyspnea with exertion with worsening non-productive cough. Denies chest pain, dizziness. Over the past day she began having worsening right rib pain and proceeded to the ED. CTA chest showed large tension pneumothorax of right lung and scattered cystic lesions, though no tension physiology was noted on vitals or exam. Chest tube was place with quick relief of symptoms, but continues to have right rib pain. Workup otherwise unremarkable. Case discussed with ED provider and decision was made to admit patient for pneumothorax s/p chest tube decompression. #Large right lung spontaenous pneumothorax s/p chest tube #Scatter cystic lesions both lungs - Patient of SOB and cough resolved after chest tube decompression. - Vitals stable, no respiratory distress. Saturating 100% on room air. - Continues to have right rib pain. No rib fractures noted on CTA chest. - No Marfan features to suggest etiology or recurrent pneumothoraces. Though cystic lesions noted on bilateral lungs. - Pulmonology consulted, pending recommendations. - Hold anticoagulation with chest tube. #Hypertension - BP stable at this time. Resume home medications once appropriate. #Type 2 diabetes - Follow-up A1c. - LDSSI, ACHS glucose checks. #Anxiety/depression - Resumed home Wellbutrin. #CAD s/p 2 stents - Asprin, statin #GERD - Home PPI. FULL CODE Hold AC due to chest tube in place.
[2024-03-21] MEDS: HYDROCODONE/APAP 5/325 MG TABLET 2 TAB PO (20:57)
[2024-03-21] MEDS: PANTOPRAZOLE 40MG TABLET 40 MG PO (21:30)
--- NOTE | 2024-03-21 22:25 | XR_ITS ---
PROCEDURE INFORMATION: Exam: XR Chest Exam date and time: 03/21/2024 10:44 PM Age: 73 years old Clinical indication: Device placement; Chest tube; Additional info: Chest tube placement TECHNIQUE: Imaging protocol: Radiologic exam of the chest. Views: 1 view. COMPARISON: CR XR CHEST PORTABLE 03/21/2024 3:58 PM FINDINGS: Tubes, catheters and devices: Small bore right chest tube is noted at the right lung base. Lungs: Low lung volumes. Small area of bandlike density lateral right mid lung zone consistent with atelectasis. Pleural spaces: There may be tiny lateral pneumothorax present in the area of atelectasis . Heart/Mediastinum: Unremarkable. No cardiomegaly. Vasculature: Unremarkable. Bones/joints: Unremarkable. IMPRESSION: 1. Small bore right chest tube remains in place at the right lung base. There may be a tiny lateral right pneumothorax present. 2. Right mid lung zone atelectasis.
[2024-03-21] MEDS: MORPHINE 2MG/ML SYRINGE 2 MG IV (22:39)
[2024-03-22] VITALS (12 sets, daily range): BP systolic 80–134; BP diastolic 50–87; PULSE 56–80; RESP 14–20; TEMP 36.4–37.1; O2SAT 90–98; BMI 26.0
[2024-03-22 00:19] LABS: Troponin I < 0.01 ng/ml (0.00-0.034)
[2024-03-22 06:14] LABS: Chloride 107 mmol/L (98-107)
[2024-03-22] MEDS: HYDROCODONE/APAP 5/325 MG TABLET 1 TAB PO (06:14)
[2024-03-22 06:15] LABS: Albumin Level 3.7 g/dl (3.5-5.0); Potassium 3.5 mmoL/L (3.5-5.1); Sodium 135 mmol/L (136-145)
[2024-03-22 06:16] LABS: POC Glucose,Bedside 103 (70-110)
[2024-03-22 06:17] LABS: Anion Gap 5.5 mEq/L (5-15); Blood Urea Nitrogen 26 mg/dl (7-17); Carbon Dioxide 26 mmol/L (22.0-30.0); Creatinine Clearance Estimated 45 mL/min (50-200); Estimated Glomerular Filt Rate 48 ml/min (>60); GFR (African American) 59 ML/MIN (>60)
[2024-03-22 06:18] LABS: Alanine Aminotransferase 47 U/L (12-78); Albumin/Globulin Ratio 1.4 (1.1-1.8); Alkaline Phosphatase 60 U/L (38-126); Aspartate Amino Transferase 45 U/L (14-36); Bilirubin,Total 0.5 mg/dl (0.2-1.3); Calcium 8.6 mg/dl (8.4-10.2); Globulin 2.7 g/dL (1.3-3.2); Glucose 97 mg/dl (74-100); Total Protein,Serum 6.4 g/dl (6.3-8.2)
[2024-03-22 06:21] LABS: Red Blood Count 3.55 M/mm3 (4.20-5.40); White Blood Count 8.8 K/mm3 (4.8-10.8)
[2024-03-22 06:23] LABS: Basophils # 0.1 K/mm3 (0-0.2); Basophils % 0.6 % (0.1-2.0); Eosinophils # 0.2 K/mm3 (0.0-0.4); Eosinophils % 2.6 % (0.1-12.0); Lymphocytes # 1.6 K/mm3 (0.7-4.5); Lymphocytes % 18.3 % (10-50); Mean Corpuscular HGB Conc 32.8 g/dL (31.8-35.4); Mean Corpuscular Hemoglobin 33.2 pg (27.0-31.2); Mean Corpuscular Volume 101.4 fl (81-99); Mean Platelet Volume 11.5 fl (7.4-10.4); Monocytes # 0.6 K/mm3 (0.1-1.0); Monocytes % 6.6 % (1.7-9.3); Neutrophils # 6.3 K/mm3 (1.8-7.8); Neutrophils % 71.7 % (37.0-80.0); Platelet Count 156 K/mm3 (142-424); Red Cell Distribution Width 12.5 % (11.5-17.5)
--- NOTE | 2024-03-22 06:30 | XR_ITS ---
FINAL REPORT CLINICAL HISTORY: Follow-up pneumothorax COMPARISON: 03/21/2024 FINDINGS: There is minimal right lung atelectasis. There is no evidence of effusion or right pneumothorax. Right pigtail pleural catheter is stable. Mediastinum is unremarkable. Heart size is normal. IMPRESSION: No evidence of pneumothorax. Reviewed, Interpreted and Dictated by Faraz King MD Transcribed by Katie Menjivar Authenticated and [facility]
[2024-03-22 06:31] LABS: Hemoglobin 11.8 g/dL (12.2-16.2)
[2024-03-22] MEDS: POTASSIUM CHLORIDE 20MEQ TAB 40 MEQ PO ×2 (07:17→11:57)
--- NOTE | 2024-03-22 07:38 | ECG_ITS ---
APPROVED REPORT Exam: Resting ECG HR:55 bpm ECG Measurements Heart Rate 55 AXES VT 153 P 16 QRSd 93 QRS -31 QT 423 T -32 QTc 412 Conclusion SINUS BRADYCARDIA LEFT AXIS DEVIATION [QRS AXIS < -30] PATTERN CONSISTENT WITH PULMONARY DISEASE NONSPECIFIC T-WAVE ABNORMALITY ABNORMAL ECG UNCONFIRMED REPORT Electronically signed by : Henri Valles MD 03/24/2024 09:13:15
--- NOTE | 2024-03-22 07:43 | CT_ITS ---
FINAL REPORT TECHNIQUE: Axial CT without contrast. CLINICAL HISTORY: f/u pneumothorax, SOB with right rib pain COMPARISON: 03/21/2024 FINDINGS: CT CHEST without contrast There has been interval resolution in the right pneumothorax. Pigtail pleural catheter is seen coursing through the major fissure with pigtail abutting the right epicardial fat. Multiple cystic areas are seen in the lungs which may be seen with GONZALEZ or post infection. Moderate hiatal hernia is identified. No pleural or pericardial effusion is seen . No adenopathy or mass lesion is present . IMPRESSION: Resolution of right pneumothorax with underlying lung disease. This study was performed using automated techniques to achieve radiation exposure as low as reasonably achievable Reviewed, Interpreted and Dictated by Faraz King MD Transcribed by Katie Menjivar Authenticated and [facility]
[2024-03-22 07:50] LABS: Thyroid Stimulating Hormone 5.48 uIU/mL (0.465-4.68)
[2024-03-22 08:17] LABS: Troponin I < 0.01 ng/ml (0.00-0.034)
--- NOTE | 2024-03-22 08:51 | HMH.PHAINT1 ---
Pharmacy Intervention Comments: home medication list verified using list from 's iphone and pt interview
[2024-03-22] MEDS: 0.9 % SODIUM CHLORIDE 1000ML 500 ML IV (09:33)
[2024-03-22] MEDS: buPROPion HCL 100 MG TABLET 200 MG PO ×2 (09:33→21:07)
[2024-03-22] MEDS: ASPIRIN EC 81MG TABLET 81 MG PO (09:33)
[2024-03-22] MEDS: FERROUS SULFATE 325MG TABLET 325 MG PO (09:33)
--- NOTE | 2024-03-22 10:03 | EXP.PULM.CON ---
History of Present Illness History of present illness: Ms. Gooden is a 73-year-old female no significant smoking history history of pneumothorax when she was send presented to the hospital complaining of worsening chest discomfort/chest pain found to have a large right pneumothorax status post with pneumothorax catheter placement pulmonary was called for further evaluation and management. She at baseline not using any inhaler therapy or oxygen. On 3 L saturating 97% this morning, weaned to room air. [facility] Disclaimer: The information contained in this section may have been updated after the patient was seen, as this information can be updated by other users. Medical History (Updated 03/22/24 @ 13:01 by Aleks Rowan MD) Pneumothorax Cystic-bullous disease of lung Anxiety Depression Hyperlipidemia Hypertension Diabetes Surgical History History of heart artery stent Hx laparoscopic cholecystectomy H/O total hysterectomy Hx of gastric bypass Family History Father Heart attack Social History (Updated 03/21/24 @ 18:56 by Re Conley RN) Smoking Status: Never smoker second hand exposure: No alcohol intake: never current occupational status: other Travel in the last 8 weeks: None household members: spouse housing: house caffeine: No Have you lived/traveled outside [place] in past 30 days?: No Contact w/someone who lives/traveled outside US past 30 days?: No Exposure to someone with infectious disease in past 14 days?: No Do you have a fever (greater than 100.4 F or 38 C)?: No Have you tested positive for COVID-19: No Exposed to someone with COVID-19 in past 14 days?: No Do you have a sore throat?: No Do you have a cough?: Yes Do you have any weakness?: No Are you experiencing any nausea/vomitting?: No Do you have any diarrhea?: No Are you experiencing any unusual bleeding?: No Do you have any muscle aches/pain?: No Do you have any abdominal pain?: No Are you experiencing loss of taste or smell?: No Review of Systems Constitutional Constitutional: Reports anorexia, Reports body ache(s) and Reports fatigue Eyes Eyes: Denies eye discharge, Denies dry eyes, Denies irritation and Denies itchy eyes ENT Ears, Nose, Mouth, and Throat: Denies epistaxis, Denies facial pain, Denies lip swelling and Denies throat swelling *Cardiovascular Cardiovascular: Denies dyspnea and Reports dyspnea on exertion *Respiratory Respiratory: Denies chest congestion, Reports cough, Denies dyspnea, Reports dyspnea on exertion, Denies excessive phlegm production, Denies hemoptysis, Reports pain on inspiration, Reports pain with cough and Reports wheezing *Gastrointestinal Gastrointestinal: Denies abdominal pain, Denies belching and Denies cramping *Musculoskeletal Musculoskeletal: Reports back pain, Reports myalgias and Reports other (No small joint swelling or Pain) Psychiatric Psychiatric: Denies homicidal ideation and Denies suicidal ideation Endocrine Endocrine: Reports fatigue and Denies heat intolerance Hematologic/Lymphatic Hematologic/Lymphatic: Denies easy bleeding and Denies lymphadenopathy Allergic/Immunologic Allergic/Immunologic: Denies itchy eyes, Denies lip swelling, Denies throat swelling and Reports wheezing Pulmonology Exam Inpatient Vital signs and Labs for Last 24 Hours: Temp Pulse Resp BP Pulse Ox O2 Del Method O2 Flow Rate 98.2 F 70 14 87/50 L 98 Nasal Cannula 4 03/22/24 08:00 03/22/24 08:00 03/22/24 08:00 03/22/24 08:00 03/22/24 08:00 03/22/24 08:00 03/22/24 08:00 Laboratory Results - last 24 hr 03/21/24 14:00: WBC 7.3, RBC 3.95 L, Hgb 13.3, Hct 39.2, MCV 99.2 H, MCH 33.7 H, MCHC 33.9, RDW 12.5, Plt Count 178, MPV 11.8 H, Neut % (Auto) 65.0, Lymph % (Auto) 25.3, [place] % (Auto) 6.3, Eos % (Auto) 2.6, Baso % (Auto) 0.5, Neut # (Auto) 4.8, Lymph # (Auto) 1.9, [place] # (Auto) 0.5, Eos # (Auto) 0.2, Baso # (Auto) 0.0, PT 11.2, INR 1.00, APTT 26.8, Sodium 137, Potassium 3.8, Chloride 107, Carbon Dioxide 28, Anion Gap 5.8, BUN 26 H, Creatinine 0.80, Estimated GFR 70, Est GFR ( Amer) 85, Glucose 97, Calcium 9.1, Total Bilirubin 0.5, AST 59 H, ALT 63, Alkaline Phosphatase 72, Troponin I < 0.01, Total Protein 7.1, Albumin 4.2, Globulin 2.9, Albumin/Globulin Ratio 1.4, HIV Ag/Ab Combo Qual Negative 03/21/24 19:10: Troponin I < 0.01 03/21/24 23:27: Troponin I < 0.01 03/22/24 05:33: WBC 8.8, RBC 3.55 L, Hgb 11.8 L D, Hct 36.0 L, MCV 101.4 H, MCH 33.2 H, MCHC 32.8, RDW 12.5, Plt Count 156, MPV 11.5 H, Neut % (Auto) 71.7, Lymph % (Auto) 18.3, [place] % (Auto) 6.6, Eos % (Auto) 2.6, Baso % (Auto) 0.6, Neut # (Auto) 6.3, Lymph # (Auto) 1.6, [place] # (Auto) 0.6, Eos # (Auto) 0.2, Baso # (Auto) 0.1, Sodium 135 L, Potassium 3.5, Chloride 107, Carbon Dioxide 26, Anion Gap 5.5, BUN 26 H, Creatinine 1.10 H D, Estimated Creat Clear 45, Estimated GFR 48 L, Est GFR ( Amer) 59 D, Glucose 97, Calcium 8.6, Magnesium 2.0, Total Bilirubin 0.5, AST 45 H, ALT 47 D, Alkaline Phosphatase 60, Troponin I < 0.01, Total Protein 6.4, Albumin 3.7 D, Globulin 2.7, Albumin/Globulin Ratio 1.4, TSH 5.48 H 03/22/24 06:09: POC Glucose 103 I & O for Labs for Last 24 Hours: Intake & Output 03/19/24 03/20/24 03/21/24 03/22/24 23:59 23:59 23:59 23:59 Intake Total 270 / 270 Output Total Balance 260 / 260 Weight 144 lb 7 oz 141 lb 9 oz Constitutional: Present moderate distress Head: Present normocephalic and atraumatic ENT: Present normal exam, normal oropharynx and mucous membranes moist Neck: Present normal inspection and full ROM Respiratory: Present normal respiratory effort and able to speak in complete sentences; Absent prolonged expiratory phase, respiratory distress, wheezes or crackles Cardiac: Present S1/S2, Tachycardia and radial pulses present GI: Present soft and distention; Absent tenderness or guarding Rectal (female): Present deferred (female): Present deferred Skin: Present intact; Absent cyanosis or jaundice Neuro: Present alert, awake and oriented x 3 Extremities: Present normal inspection; Absent clubbing or cyanosis Psychiatric: Present normal affect and cooperative Meds Home Medications and Allergies Home Medications ?Medication ?Instructions ?Recorded ?Confirmed ?Type omeprazole magnesium 20 mg 20 mg PO DAILY 08/07/18 03/21/24 History tablet,delayed release calcium ER 600 mg (as carb,cit)-D3 1 each PO DIRECTED 08/08/18 03/21/24 History 12.5 mcg (500 unit) tablet, ext.rel multivitamin 2 each PO DAILY 08/08/18 03/21/24 History atorvastatin 40 mg tablet 20 mg PO HS 01/23/22 03/21/24 History fluticasone propionate 50 2 spray intranasal BID 01/23/22 03/21/24 History mcg/actuation nasal spray,suspension hydrochlorothiazide 12.5 mg tablet 12.5 mg PO DAILY 01/23/22 03/21/24 History metoprolol succinate 50 mg 50 mg PO BID 01/23/22 03/21/24 History tablet,extended release 24 hr acarbose 25 mg tablet 50 mg PO DAILY 08/01/22 03/21/24 History aspirin 81 mg tablet,delayed 81 mg PO DAILY 08/01/22 03/21/24 History release bupropion HCl 100 mg tablet 200 mg PO BID 08/01/22 03/21/24 History cholecalciferol (vitamin D3) 125 5,000 unit PO DAILY 08/01/22 03/21/24 History mcg (5,000 unit) tablet cyanocobalamin (vitamin B-12) 5,000 mcg PO DIRECTED 08/01/22 03/21/24 History 5,000 mcg capsule ferrous gluconate 324 mg (37.5 mg 324 mg PO DAILY 08/01/22 03/21/24 History iron) tablet losartan 25 mg tablet 50 mg PO BID 08/01/22 03/21/24 History montelukast 10 mg tablet 10 mg PO DAILY 08/01/22 03/21/24 History paroxetine HCl 30 mg tablet 30 mg PO DAILY 08/01/22 03/21/24 History simethicone 80 mg chewable tablet 80 mg PO HS PRN GI discomfort 08/01/22 03/21/24 History azithromycin 500 mg tablet 500 mg PO DAILY #10 tabs 03/21/24 03/21/24 Rx semaglutide 0.25 mg or 0.5 mg (2 0.5 mg SQ WEEKLY 03/21/24 03/21/24 History mg/3 mL) subcutaneous pen injector (Ozempic) New Prescriptions to Start Prescriptions: Allergies Allergy/AdvReac Type Severity Reaction Status Date / Time No Known Allergies Allergy Verified 03/21/24 10:39 Results Laboratory Findings 03/22/24 05:33 03/22/24 05:33 PT/INR, D-dimer PT 11.2 seconds (10.1-12.5) 03/21/24 14:00 INR 1.00 (0.9-1.1) 03/21/24 14:00 Abnormal lab findings: Abnormal Labs 03/21/24 03/22/24 14:00 05:33 RBC 3.95 L 3.55 L Hgb 11.8 L D Hct 36.0 L MCV 99.2 H 101.4 H MCH 33.7 H 33.2 H MPV 11.8 H 11.5 H Sodium 135 L BUN 26 H 26 H Creatinine 1.10 H D Estimated GFR 48 L AST 59 H 45 H TSH 5.48 H Assessment and Plan *Assessment and plan (1) Cystic-bullous disease of lung: Status: Acute Category: Medical Code(s): J98.4 - Other disorders of lung (2) Pneumothorax: Status: Acute Category: Medical Code(s): J93.9 - Pneumothorax, unspecified Plan Ms. Gooden is a 73-year-old female no significant smoking history history of pneumothorax when she was send presented to the hospital complaining of worsening chest discomfort/chest pain found to have a large right pneumothorax status post with pneumothorax catheter placement pulmonary was called for further evaluation and management. Patient appears to be having a history of cystic lung disease, her brother who is also a smoker had multiple episodes of pneumothorax/lung collapses. CT chest upon admission cystic lung disease. Large right pneumothorax. CT chest from this morning complete resolution of the noted pneumothorax. She at baseline not using any inhaler therapy or oxygen. On 3 L saturating 97% this morning, weaned to room air. Plan: Continue chest tube, to waterseal. Follow-up chest x-ray.
[2024-03-22 11:37] LABS: Hemoglobin A1C 5.4 % (4.0-6.0)
--- NOTE | 2024-03-22 13:27 | XR_ITS ---
FINAL REPORT CLINICAL HISTORY: Pneumothorax COMPARISON: 8 hours prior FINDINGS: There is stable mild atelectasis. The lungs are hypoinflated. There is no evidence of effusion or pneumothorax. Mediastinum is unremarkable. Heart size is normal. IMPRESSION: No significant change. Reviewed, Interpreted and Dictated by Faraz King MD Transcribed by Paty Mccrary Authenticated and [facility]
[2024-03-22] MEDS: HYDROCODONE/APAP 5/325 MG TABLET 2 TAB PO ×2 (16:13→21:11)
[2024-03-22 17:11] LABS: POC Glucose,Bedside 71 (70-110)
--- NOTE | 2024-03-22 17:27 | P.PN_ITS ---
Subjective *Date: 03/22/24 *Time: 17:27 Interval history: Patient had some right-sided rib pain with somewhat increased work of breathing this morning, CT chest was reassuring with no pneumothorax. Has done well with rest of the day. Plan to discontinue chest tube tomorrow. Water-sealed overnight. If any events overnight, repeat CXR before restarting chest tube suctioning. Exam Data for Last 24 hours Vital signs and Labs for Last 24 Hours: Temp Pulse Resp BP Pulse Ox O2 Del Method O2 Flow Rate 98.0 F 68 18 126/61 95 Room Air 2 03/22/24 16:00 03/22/24 16:00 03/22/24 16:00 03/22/24 16:00 03/22/24 16:00 03/22/24 16:00 03/22/24 14:59 Laboratory Results - last 24 hr 03/21/24 19:10: Troponin I < 0.01 03/21/24 23:27: Troponin I < 0.01 03/22/24 05:33: WBC 8.8, RBC 3.55 L, Hgb 11.8 L D, Hct 36.0 L, MCV 101.4 H, MCH 33.2 H, MCHC 32.8, RDW 12.5, Plt Count 156, MPV 11.5 H, Neut % (Auto) 71.7, Lymph % (Auto) 18.3, [place] % (Auto) 6.6, Eos % (Auto) 2.6, Baso % (Auto) 0.6, Neut # (Auto) 6.3, Lymph # (Auto) 1.6, [place] # (Auto) 0.6, Eos # (Auto) 0.2, Baso # (Auto) 0.1, Sodium 135 L, Potassium 3.5, Chloride 107, Carbon Dioxide 26, Anion Gap 5.5, BUN 26 H, Creatinine 1.10 H D, Estimated Creat Clear 45, Estimated GFR 48 L, Est GFR ( Amer) 59 D, Glucose 97, Hemoglobin A1c 5.4, Calcium 8.6, Magnesium 2.0, Total Bilirubin 0.5, AST 45 H, ALT 47 D, Alkal ine Phosphatase 60, Troponin I < 0.01, Total Protein 6.4, Albumin 3.7 D, Globulin 2.7, Albumin/Globulin Ratio 1.4, TSH 5.48 H 03/22/24 06:09: POC Glucose 103 03/22/24 17:00: POC Glucose 71 I & O for Last 24 hours: Intake & Output 03/19/24 03/20/24 03/21/24 03/22/24 23:59 23:59 23:59 23:59 Intake Total 750 / 750 Output Total Balance 740 / 740 Weight 65.516 kg 64.2 kg Constitutional Constitutional: no acute distress *Routine HEENT Exam Head: Present normocephalic Eye: Present EOMI and PERRL ENT: Present mucous membranes moist *Routine Neck Exam Neck: Present supple; Absent lymphadenopathy *Routine Respiratory Exam Respiratory: Present CTA bilaterally *Routine Cardiovascular Exam Cardiovascular: Present RRR *Routine Abdominal Exam Abdominal: Present soft and normoactive bowel sounds; Absent tenderness *Routine Extremities Exam Extremities: Absent cyanosis, clubbing or edema *Routine Skin Exam Skin: Present warm; Absent rash *Routine Neurological Exam Neurological: Present alert and oriented X3 Assessment and Plan *Assessment and plan (1) Pneumothorax, right: Status: Acute Category: Medical Code(s): J93.9 - Pneumothorax, unspecified Plan Ginger Gooden is a 73 year old female with a medication history of spontaneous pneumothorax > 20 years ago (requiring chest tubes, runs in family), hypertension, type 2 diabets, CAD, GERD who presents with worsening cough and SOB. She states it began about 2-3 ago when he began feeling dyspnea with exertion with worsening non-productive cough. Denies chest pain, dizziness. Over the past day she began having worsening right rib pain and proceeded to the ED. CTA chest showed large tension pneumothorax of right lung and scattered cystic lesions, though no tension physiology was noted on vitals or exam. Chest tube was place with quick relief of symptoms, but continues to have right rib pain. Workup otherwise unremarkable. Case discussed with ED provider and decision was made to admit patient for pneumothorax s/p chest tube decompression. #Large right lung spontaenous pneumothorax s/p chest tube #Scatter cystic lesions both lungs - Patient of SOB and cough resolved after chest tube decompression on admission. - Vitals stable, no respiratory distress. Saturating 95 % on room air. - Continues to have right rib pain. No rib fractures noted on CTA chest. - No Marfan features to suggest etiology or recurrent pneumothoraces. Though cystic lesions noted on bilateral lungs. - Pulmonology consulted, repeat CXR this morning reassuring with no pneumothorax. Water-sealed chest tube today, plan to repeat CXR tomorrow morning and if stable we will discontinue chest tube. - Hold anticoagulation with chest tube. - If any events overnight, repeat CXR before restarting chest tube suctioning. #Hypertension - BP stable at this time. Resume home medications once appropriate. #Type 2 diabetes -Hemoglobin A1c 5.4%. Will discontinue LDSSI, ACHS glucose checks. #Anxiety/depression - Resumed home Wellbutrin. #CAD s/p 2 stents - Asprin, statin #GERD - Home PPI. FULL CODE Hold AC due to chest tube in place.
--- NOTE | 2024-03-22 18:45 | PC.NURSE ---
PT HAS DONE WELL SINCE THIS RN ASSUMED CARE OF PT. SHE HAS C/O PAIN X1 AND WAS MEDICATED PER J[facility]. STANDBY ASSIST TO THE BEDSIDE COMMODE. GETS SHORT OF BREATH WITH ACTIVITY DUE TO PAIN.
[2024-03-22] MEDS: POLYETHYLENE GLYCOL 3350 17 GM PACKET PO (21:06)
[2024-03-22] MEDS: PANTOPRAZOLE 40MG TABLET 40 MG PO (21:07)
[2024-03-22] MEDS: ATORVASTATIN 20MG TABLET 20 MG PO (21:07)
--- NOTE | 2024-03-22 23:19 | PC.NURSE ---
Phone call from An[facility] at this time, stated to clamp chest tube, order chest xray 0600. Read back and verified.
[2024-03-23] VITALS: BP 104/63; PULSE 64; RESP 18; TEMP 36.8; O2SAT 95
[2024-03-23 04:00] VITALS: BP 139/73; PULSE 95; RESP 20; TEMP 37.1; O2SAT 93; BMI 27.2
[2024-03-23] MEDS: HYDROCODONE/APAP 5/325 MG TABLET 2 TAB PO ×2 (05:19→10:39)
--- NOTE | 2024-03-23 06:00 | XR_ITS ---
PROCEDURE INFORMATION: Exam: XR Chest Exam date and time: 03/23/2024 6:58 AM Age: 73 years old Clinical indication: Device placement; Chest tube; Additional info: Chest tube, pneumo fu TECHNIQUE: Imaging protocol: Radiologic exam of the chest. Views: 1 view. COMPARISON: CR XR CHEST PORTABLE 03/22/2024 2:15 PM FINDINGS: Tubes, catheters and devices: Stable right basilar pigtail thoracostomy tube. Lungs: Hypoinflation. Perhaps mild interval increase in basilar patchy airspace infiltration bilaterally. No focal consolidation. Pleural spaces: Unremarkable. No pleural effusion. No pneumothorax. Heart/Mediastinum: Unremarkable. No cardiomegaly. Vasculature: Atherosclerotic disease of the aortic arch. Bones/joints: Unremarkable. Intraperitoneal space: Surgical clips in the left upper quadrant. IMPRESSION: 1. No significant residual pneumothorax. Stable chest tube. 2. Perhaps mild increase in basilar patchy airspace infiltration from prior comparison which may indicate increasing atelectasis, however difficult to exclude early infectious process. Correlate clinically.
[2024-03-23 06:23] LABS: HCV Ab Non Reactive (Non Reactive)
--- NOTE | 2024-03-23 06:52 | PC.NURSE ---
Patient turned to room air at 0500, used bedside commode and back to bed sat 94-95%, at 0600 patient began to stay 88%, placed back on 2L NC.
[2024-03-23 07:53] VITALS: BP 99/59; PULSE 90; RESP 20; TEMP 36.6; O2SAT 94
[2024-03-23 08:07] LABS: Albumin Level 3.2 g/dl (3.5-5.0); Chloride 109 mmol/L (98-107); Potassium 4.1 mmoL/L (3.5-5.1); Sodium 133 mmol/L (136-145)
[2024-03-23 08:10] LABS: Alanine Aminotransferase 34 U/L (12-78); Albumin/Globulin Ratio 1.2 (1.1-1.8); Alkaline Phosphatase 58 U/L (38-126); Anion Gap 4.1 mEq/L (5-15); Aspartate Amino Transferase 34 U/L (14-36); Bilirubin,Total 0.5 mg/dl (0.2-1.3); Blood Urea Nitrogen 23 mg/dl (7-17); Calcium 8.2 mg/dl (8.4-10.2); Carbon Dioxide 24 mmol/L (22.0-30.0); Creatinine Clearance Estimated 52 mL/min (50-200); Estimated Glomerular Filt Rate 70 ml/min (>60); GFR (African American) 85 ML/MIN (>60); Globulin 2.7 g/dL (1.3-3.2); Glucose 100 mg/dl (74-100); Magnesium 1.9 mg/dl (1.6-2.3); Total Protein,Serum 5.9 g/dl (6.3-8.2)
[2024-03-23] MEDS: buPROPion HCL 100 MG TABLET 200 MG PO (08:13)
[2024-03-23] MEDS: FERROUS SULFATE 325MG TABLET 325 MG PO (08:13)
[2024-03-23] MEDS: ASPIRIN EC 81MG TABLET 81 MG PO (08:13)
[2024-03-23 08:26] VITALS: BP 107/69; BP 108/73; BP 95/60; PULSE 90; PULSE 94; PULSE 96
[2024-03-23 08:26] LABS: Hematocrit 33.5 % (37.0-47.0); Hemoglobin 11.1 g/dL (12.2-16.2); White Blood Count 10.8 K/mm3 (4.8-10.8)
[2024-03-23 08:27] LABS: Basophils % 0.3 % (0.1-2.0); Eosinophils % 1.4 % (0.1-12.0); Lymphocytes # 0.8 K/mm3 (0.7-4.5); Lymphocytes % 7.4 % (10-50); Mean Corpuscular HGB Conc 33.1 g/dL (31.8-35.4); Mean Corpuscular Hemoglobin 33.6 pg (27.0-31.2); Mean Corpuscular Volume 101.5 fl (81-99); Mean Platelet Volume 11.8 fl (7.4-10.4); Monocytes # 0.6 K/mm3 (0.1-1.0); Monocytes % 5.3 % (1.7-9.3); Neutrophils # 9.2 K/mm3 (1.8-7.8); Neutrophils % 85.2 % (37.0-80.0); Platelet Count 129 K/mm3 (142-424); Red Cell Distribution Width 12.6 % (11.5-17.5)
[2024-03-23 08:28] LABS: Eosinophils # 0.2 K/mm3 (0.0-0.4)
[2024-03-23 08:29] LABS: MANUAL DIFFERENTIAL MANUAL DIFFERENTIAL (MANUAL DIFF)
[2024-03-23 10:04] LABS: Lymphocytes % 10 % (10-50); Macrocytosis 1+; Monocytes % 1 % (2-9); Neutrophils % 89 % (42-76); Platelet Estimate Slight Decrease; Total Cells Counted 100
[2024-03-23 11:48] VITALS: BP 94/50; PULSE 82; RESP 18; TEMP 36.6; O2SAT 94
--- NOTE | 2024-03-23 12:24 | PC.NURSE ---
chest tube removed at 1110. pt tolerated well. placed one stitch.
--- NOTE | 2024-03-23 12:39 | XR_ITS ---
PROCEDURE INFORMATION: Exam: XR Chest Exam date and time: 03/23/2024 1:15 PM Age: 73 years old Clinical indication: Other: S/P chest tube removal TECHNIQUE: Imaging protocol: Radiologic exam of the chest. Views: 1 view. COMPARISON: CR XR CHEST PORTABLE 03/23/2024 6:58 AM FINDINGS: Tubes, catheters and devices: The right chest tube has been removed. No visible pneumothorax. Lungs: Mild bibasilar atelectasis. Low lung volumes. Pleural spaces: See Tubes, catheters and devices finding. Heart/Mediastinum: Normal. No cardiomegaly. Vasculature: Tortuous atherosclerotic thoracic aorta. Bones/joints: Unremarkable. IMPRESSION: The right chest tube has been removed. No visible pneumothorax.
[2024-03-23] MEDS: LIDOCAINE 1% 10ML MDV 5 ML IM (14:07)
--- NOTE | 2024-03-23 14:20 | P.DS_ITS ---
General Admission date:: 03/21/24 HPI HPI HPI: Ginger Gooden is a 73 year old female with a medication history of spontaneous pneumothorax > 20 years ago (requiring chest tubes, runs in family), hypertension, type 2 diabets, CAD, GERD who presents with worsening cough and SOB. She states it began about 2-3 ago when he began feeling dyspnea with exertion with worsening non-productive cough. Denies chest pain, dizziness. Over the past day she began having worsening right rib pain and proceeded to the ED. CTA chest showed large tension pneumothorax of right lung and scattered cystic lesions, though no tension physiology was noted on vitals or exam. Chest tube was place with quick relief of symptoms, but continues to have right rib pain. Workup otherwise unremarkable. Case discussed with ED provider and decision was made to admit patient for pneumothorax s/p chest tube decompression. Hospital Course Hospital Course Hospital Course: Ginger Gooden is a 73 year old female with a medication history of spontaneous pneumothorax > 20 years ago (requiring chest tubes, runs in family), hypertension, type 2 diabets, CAD, GERD who presents with worsening cough and SOB. She states it began about 2-3 ago when he began feeling dyspnea with exertion with worsening non-productive cough. Denies chest pain, dizziness. Over the past day she began having worsening right rib pain and proceeded to the ED. CTA chest showed large tension pneumothorax of right lung and scattered cystic lesions, though no tension physiology was noted on vitals or exam. Chest tube was place with quick relief of symptoms, but continues to have right rib pain. Workup otherwise unremarkable. Case discussed with ED provider and decision was made to admit patient for pneumothorax s/p chest tube decompression. #Large right lung spontaenous pneumothorax s/p chest tube #Scatter cystic lesions both lungs - Patient of SOB and cough resolved after chest tube decompression on admission. - Vitals stable, no respiratory distress. Saturating 94% on room air. - Continues to have some right rib pain. No rib fractures noted on CTA chest. - No Marfan features to suggest etiology or recurrent pneumothoraces. Though cystic lesions noted on bilateral lungs. - Pulmonology consulted, and assisted with care. ? Chest tube was water-sealed overnight with no recurrent pneumothorax on chest x-ray. Chest tube was removed with no acute findings on repeat chest x-ray. One suture applied to incision site ? Medically stable for discharge. Strict return precautions discussed and understood. ? Discharged with [facility] for 3 days for right rib pain. Will follow-up with PCP within 1 week. #Hypertension -BP soft during admission. Held home hydrochlorothiazide, losartan, metoprolol. # History of diabetes - Hemoglobin A1c 5.4%. Will discontinue LDSSI, ACHS glucose checks. #Anxiety/depression - Resumed home Wellbutrin. #CAD s/p 2 stents - Asprin, statin #GERD - Home PPI. Exam Data for Last 24 hours Vital signs and Labs for Last 24 Hours: Temp Pulse Resp BP Pulse Ox O2 Del Method O2 Flow Rate 98 F 82 18 94/50 L 94 L Room Air 1 03/23/24 11:48 03/23/24 11:48 03/23/24 11:48 03/23/24 11:48 03/23/24 11:48 03/23/24 13:00 03/23/24 11:48 Laboratory Results - last 24 hr 03/21/24 14:00: Hepatitis C Antibody Non reactive 03/22/24 17:00: POC Glucose 71 03/23/24 07:14: WBC 10.8, RBC 3.30 L, Hgb 11.1 L, Hct 33.5 L, MCV 101.5 H, MCH 33.6 H, MCHC 33.1, RDW 12.6, Plt Count 129 L, MPV 11.8 H, Neut % (Auto) 85.2 H, Lymph % (Auto) 7.4 L, [place] % (Auto) 5.3, Eos % (Auto) 1.4, Baso % (Auto) 0.3, Neut # (Auto) 9.2 H, Lymph # (Auto) 0.8, [place] # (Auto) 0.6, Eos # (Auto) 0.2, Baso # (Auto) 0.0, Total Counted 100, Neutrophils % (Manual) 89 H, Lymphocytes % (Manual) 10, Monocytes % (Manual) 1 L, Platelet Estimate Slight decrease, Macrocytosis 1+, Sodium 133 L, Potassium 4.1, Chloride 109 H, Carbon Dioxide 24, Anion Gap 4.1 L, BUN 23 H, Creatinine 0.80 D, Estimated Creat Clear 52, Estimated GFR 70, Est GFR ( Amer) 85 D, Glucose 100, Calcium 8.2 L, Magnesium 1.9, Total Bilirubin 0.5, AST 34, ALT 34 D, Alkaline Phosphatase 58, Total Protein 5.9 L, Albumin 3.2 L D, Globulin 2.7, Albumin/Globulin Ratio 1.2, Free T4 1.50 I & O for Last 24 hours: Intake & Output 03/20/24 03/21/24 03/22/24 03/23/24 23:59 23:59 23:59 23:59 Intake Total 1230 / 1530 640 / 640 Output Total 160 / 160 0 / 0 Balance 1070 / 1370 640 / 640 Weight 65.516 kg 64.2 kg 67.222 kg Results Data Completed and Pending Labs on day of discharge: Labs from last 24 hours 03/23/24 03/22/24 03/21/24 07:14 17:00 14:00 WBC 10.8 RBC 3.30 L Hgb 11.1 L Hct 33.5 L MCV 101.5 H MCH 33.6 H MCHC 33.1 RDW 12.6 Plt Count 129 L MPV 11.8 H Neut % (Auto) 85.2 H Lymph % (Auto) 7.4 L [place] % (Auto) 5.3 Eos % (Auto) 1.4 Baso % (Auto) 0.3 Neut # (Auto) 9.2 H Lymph # (Auto) 0.8 [place] # (Auto) 0.6 Eos # (Auto) 0.2 Baso # (Auto) 0.0 Total Counted 100 Neutrophils % (Manual) 89 H Lymphocytes % (Manual) 10 Monocytes % (Manual) 1 L Platelet Estimate Slight decrease Macrocytosis 1+ Sodium 133 L Potassium 4.1 Chloride 109 H Carbon Dioxide 24 Anion Gap 4.1 L BUN 23 H Creatinine 0.80 D Estimated Creat Clear 52 Estimated GFR 70 Est GFR ( Amer) 85 D Glucose 100 POC Glucose 71 Calcium 8.2 L Magnesium 1.9 Total Bilirubin 0.5 AST 34 ALT 34 D Alkaline Phosphatase 58 Total Protein 5.9 L Albumin 3.2 L D Globulin 2.7 Albumin/Globulin Ratio 1.2 Free T4 1.50 Hepatitis C Antibody Non reactive DS: Diagnosis Discharge Diagnosis (1) Pneumothorax, right: Status: Acute Code(s): J93.9 - Pneumothorax, unspecified Meds Home Medications and Allergies Home Medications ?Medication ?Instructions ?Recorded ?Confirmed ?Type omeprazole magnesium 20 mg 20 mg PO DAILY 08/07/18 03/21/24 History tablet,delayed release calcium ER 600 mg (as carb,cit)-D3 1 each PO DIRECTED 08/08/18 03/21/24 History 12.5 mcg (500 unit) tablet, ext.rel multivitamin 2 each PO DAILY 08/08/18 03/21/24 History atorvastatin 40 mg tablet 20 mg PO HS 01/23/22 03/21/24 History fluticasone propionate 50 2 spray intranasal BID 01/23/22 03/21/24 History mcg/actuation nasal spray,suspension hydrochlorothiazide 12.5 mg tablet 12.5 mg PO DAILY 01/23/22 03/21/24 History metoprolol succinate 50 mg 50 mg PO BID 01/23/22 03/21/24 History tablet,extended release 24 hr acarbose 25 mg tablet 50 mg PO DAILY 08/01/22 03/21/24 History aspirin 81 mg tablet,delayed 81 mg PO DAILY 08/01/22 03/21/24 History release bupropion HCl 100 mg tablet 200 mg PO BID 08/01/22 03/21/24 History cholecalciferol (vitamin D3) 125 5,000 unit PO DAILY 08/01/22 03/21/24 History mcg (5,000 unit) tablet cyanocobalamin (vitamin B-12) 5,000 mcg PO DIRECTED 08/01/22 03/21/24 History 5,000 mcg capsule ferrous gluconate 324 mg (37.5 mg 324 mg PO DAILY 08/01/22 03/21/24 History iron) tablet losartan 25 mg tablet 50 mg PO BID 08/01/22 03/21/24 History montelukast 10 mg tablet 10 mg PO DAILY 08/01/22 03/21/24 History paroxetine HCl 30 mg tablet 30 mg PO DAILY 08/01/22 03/21/24 History simethicone 80 mg chewable tablet 80 mg PO HS PRN GI discomfort 08/01/22 03/21/24 History azithromycin 500 mg tablet 500 mg PO DAILY #10 tabs 03/21/24 03/21/24 Rx semaglutide 0.25 mg or 0.5 mg (2 0.5 mg SQ WEEKLY 03/21/24 03/21/24 History mg/3 mL) subcutaneous pen injector (Ozempic) hydrocodone 5 mg-acetaminophen 325 1 tab PO Q6HP PRN Mild To Moderate 03/23/24 Rx mg tablet Pain (1-6) #14 tabs New Prescriptions to Start Prescriptions: hydrocodone-acetaminophen Miguel Ángel Colmenares Allergies Allergy/AdvReac Type Severity Reaction Status Date / Time No Known Allergies Allergy Verified 03/21/24 10:39 Discharge Plan Disposition Patient Disposition: Home, Self-Care Condition: Fair Discharge Order Discharge Orders: Discharge Order (Routine); Ordered 03/23/24 Ordered By: Miguel Ángel Colmenares Follow up Plan Follow up with: Andrez Fox MD [Primary Care Provider] - 03/29/24 Aleks Rowan MD [Physician] - Enter time for follow up (please call the office on monday for a follow up appointment) Prescriptions/Medication Reconciliation: New hydrocodone-acetaminophen 5-325 mg Tablet 1 tab PO Q6HP PRN (Reason: Mild To Moderate Pain (1-6)) Qty: 14 0RF Continued azithromycin 500 mg tablet 500 mg PO DAILY Qty: 10 0RF bupropion HCl 100 mg tablet 200 mg PO BID ferrous gluconate 324 mg (37.5 mg iron) tablet 324 mg PO DAILY acarbose 25 mg tablet 50 mg PO DAILY simethicone 80 mg tablet,chewable 80 mg PO HS PRN (Reason: GI discomfort) montelukast 10 mg tablet 10 mg PO DAILY aspirin 81 mg tablet,delayed release (DR/EC) 81 mg PO DAILY paroxetine HCl 30 mg tablet 30 mg PO DAILY omeprazole magnesium 20 MG tablet,delayed release (DR/EC) 20 mg PO DAILY multivitamin 1 EACH capsule 2 each PO DAILY calcium carb, citrate-vit D3 1 EACH tablet extended release 1 each PO DIRECTED Rx Instructions: 2 IN THE MORNING AND 1 IN THE EVENING cyanocobalamin (vitamin B-12) 5,000 mcg capsule 5,000 mcg PO DIRECTED Rx Instructions: 1 tab MWF cholecalciferol (vitamin D3) 125 mcg (5,000 unit) tablet 5,000 unit PO DAILY Rx Instructions: 1 tab M-F, 2 tabs SS atorvastatin 40 mg Tablet 20 mg PO HS fluticasone propionate 50 mcg/actuation [place],Suspension 2 spray INTRANASAL BID Rx Instructions: administer into each nostril Ozempic 0.25 mg or 0.5 mg (2 mg/3 mL) Pen Injector 0.5 mg SQ WEEKLY Held metoprolol succinate 50 mg Tablet Extended Release 24 Hr 50 mg PO BID Hold Instructions: Resume on 03/29/24. Hold blood pressure medications as your blood pressures were soft as you are taking opioids, resume once you follow-up PCP in 1 week. hydrochlorothiazide 12.5 mg Tablet 12.5 mg PO DAILY Hold Instructions: Resume on 03/29/24. Hold blood pressure medications as your blood pressures were soft as you are taking opioids, resume once you follow-up PCP in 1 week. losartan 25 mg tablet 50 mg PO BID Hold Instructions: Resume on 03/29/24. Hold blood pressure medications as your blood pressures were soft as you are taking opioids, resume once you follow-up PCP in 1 week. Problem Reconciliation Problems Reviewed?: Yes Patient Discharge Instructions Patient Instructions: DI for Pneumothorax, DI for Surgical Site Infection, DI for Chest Tube Insertion Print Language: Romansh Providers Primary Care Provider: Andrez Fox Admit Provider: Miguel Ángel Colmenares Attending Provider: Miguel Ángel Colmenares
--- NOTE | 2024-03-23 15:10 | PC.NURSE ---
pt called and updated to hold bp meds until her follow up with her primary md
--- NOTE | 2024-03-25 10:44 | SW/DCPLANNER ---
Spoke with patient on the phone. Patient stated that she is doing well. Patient stated that she called her primary care provider and Dr Puri's office and scheduled an appointment with them. Patient stated that she jsut doesnt feel as strong as she should be but stated that laying in the bed for 2 or 3 days will make you weak. 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 Rachel Bhatt.
== END 2024-03-23 15:05 | disposition home or self-care (01) | DRG 201 ==
LOC: ER 16:12 → ICU 20:55 → 2ND 03-22 15:13
PROVIDERS: Admitting Provider Student in an Organized Health Care Education/Training Program; Emergency Provider Emergency Medicine; PCP Family Medicine; Visit Provider Student in an Organized Health Care Education/Training Program
DX: J93.11 Primary spontaneous pneumothorax (principal); E11.9 Type 2 diabetes mellitus without complications; I10 Essential (primary) hypertension; E78.5 Hyperlipidemia, unspecified; I25.10 Atherosclerotic heart disease of native coronary artery without angina pectoris; J98.4 Other disorders of lung; Z95.5 Presence of coronary angioplasty implant and graft; Z79.85 Long-term (current) use of injectable non-insulin antidiabetic drugs; Z79.899 Other long term (current) drug therapy
CPT/HCPCS: 32551; 36415; 71045; 71250; 80053; 82962; 83036; 83735; 84439; 84443; 84484; 85007; 85025; 85610; 85730; 86803; 87389; 93005; 99291; J2270; J2405; J3010; J7030

== ENCOUNTER 2024-04-05 10:31 | Outpatient (CLI) | payer MEDICARE, OTHER, SELFPAY ==
--- NOTE | 2024-04-05 10:34 | XR_ITS ---
FINAL REPORT CLINICAL HISTORY: Chest Pain/ Pneumothorax History COMPARISON: 03/23/2024 FINDINGS: PA and lateral views of the chest were obtained. The cardiac and mediastinal silhouettes are within normal limits. There is evidence of prior granulomatous disease. The lungs are otherwise clear. There is no pleural effusion or pneumothorax. No acute osseous abnormality is identified. IMPRESSION: No radiographic evidence of acute cardiac or pulmonary disease. Reviewed, Interpreted and Dictated by Sandra Nichols MD Transcribed by Irasema Bell Authenticated and [facility]
== END 2024-04-05 23:59 | disposition home or self-care (01) ==
LOC: RAD 10:32
PROVIDERS: PCP Family Medicine; Visit Provider Internal Medicine Pulmonary Disease
DX: R06.02 Shortness of breath (principal)
CPT/HCPCS: 71046

== ENCOUNTER 2024-06-04 09:41 | Outpatient (CLI) | payer MEDICARE, OTHER, SELFPAY ==
[2024-06-04 10:55] VITALS: PULSE 54; PULSE 60
[2024-06-04] MEDS: ALBUTEROL 0.083% 2.5 MG/3 ML NEB IH (10:55)
== END 2024-06-04 23:59 | disposition home or self-care (01) ==
LOC: RT 09:42
PROVIDERS: PCP Family Medicine; Visit Provider Internal Medicine Pulmonary Disease
DX: R06.09 Other forms of dyspnea (principal)
CPT/HCPCS: 94060; 94618; 94640; 94726; 94729; J7613

== ENCOUNTER 2025-01-25 10:40 | Emergency (ER) | payer MEDICARE, OTHER, SELFPAY ==
[2025-01-25] VITALS (7 sets, daily range): BP systolic 90–118; BP diastolic 66–74; PULSE 59–75; RESP 13–19; TEMP 36.7–36.9; O2SAT 92–99; BMI 23.8
--- NOTE | 2025-01-25 10:50 | XR_ITS ---
PROCEDURE INFORMATION: Exam: XR Left Wrist Exam date and time: 01/25/2025 11:40 AM Age: 74 years old Clinical indication: Injury or trauma; Fall; Blunt trauma (contusions or hematomas); Wrist; Left TECHNIQUE: Imaging protocol: Radiologic exam of the left wrist. Views: 3 or more views. COMPARISON: CR XR ELBOW LT 2V 01/25/2025 11:40 AM FINDINGS: Bones/joints: Subjective osteopenia. No acute fracture or malalignment. No worrisome lytic or blastic lesion. No cortical erosion or periosteal reaction. Mild scattered joint space narrowing and osteophyte formation. Soft tissues: Mild wrist soft tissue swelling. IMPRESSION: 1. No acute fracture or malalignment. 2. Mild wrist soft tissue swelling.
--- NOTE | 2025-01-25 10:50 | XR_ITS ---
PROCEDURE INFORMATION: Exam: XR Left Shoulder Exam date and time: 01/25/2025 11:40 AM Age: 74 years old Clinical indication: Injury or trauma; Fall; Blunt trauma (contusions or hematomas); Shoulder; Left TECHNIQUE: Imaging protocol: Radiologic exam of the left shoulder. Views: 2 or more views. COMPARISON: CR XR HUMERUS LT 01/25/2025 11:40 AM FINDINGS: Bones/joints: No acute fracture or malalignment. [id number] acromioclavicular and glenohumeral joint degenerative changes. Soft tissues: No distinct soft tissue abnormality. IMPRESSION: No acute fracture or malalignment.
--- NOTE | 2025-01-25 10:50 | XR_ITS ---
PROCEDURE INFORMATION: Exam: XR Left Elbow Exam date and time: 01/25/2025 11:40 AM Age: 74 years old Clinical indication: Injury or trauma; Fall; Blunt trauma (contusions or hematomas); Elbow; Left TECHNIQUE: Imaging protocol: Radiologic exam of the left elbow. Views: 1 or 2 views. COMPARISON: CR XR SHOULDER LT MIN 2V 01/25/2025 11:40 AM FINDINGS: Bones/joints: IV line in the left elbow. No acute fracture or malalignment. Mild degenerative change. Soft tissues: [id number] dorsal upper elbow soft tissues swollen. IMPRESSION: No acute fracture or malalignment.
--- NOTE | 2025-01-25 10:50 | XR_ITS ---
PROCEDURE INFORMATION: Exam: XR Left Humerus Exam date and time: 01/25/2025 11:40 AM Age: 74 years old Clinical indication: Injury or trauma; Fall; Blunt trauma (contusions or hematomas); Arm, upper; Left TECHNIQUE: Imaging protocol: Radiologic exam of the left humerus. Views: 2 or more views. COMPARISON: CR XR SHOULDER LT MIN 2V 01/25/2025 11:40 AM FINDINGS: Bones/joints: No acute fracture or malalignment. No worrisome lytic or blastic osseous lesion. No appreciable cortical erosion or periosteal reaction. Joint spaces are preserved. Soft tissues: No appreciable radiopaque foreign body or gas. Mild distal upper arm dorsal soft tissue swelling. IMPRESSION: 1. No acute fracture or malaligment. 2. Mild distal upper arm dorsal soft tissue swelling.
--- NOTE | 2025-01-25 10:51 | CT_ITS ---
PROCEDURE INFORMATION: Exam: CTA Abdomen and Pelvis With Contrast Exam date and time: 01/25/2025 11:27 AM Age: 74 years old Clinical indication: Injury or trauma; Additional info: Fall down stairs L inferior thoraic cage pain TECHNIQUE: Imaging protocol: Computed tomographic angiography of the abdomen and pelvis with contrast. Exam focused on the arteries. 3D rendering (Not supervised by radiologist): MIP and/or 3D reconstructed images were created by the technologist. Radiation optimization: All CT scans at this facility use at least one of these dose optimization techniques: automated exposure control; mA and/or kV adjustment per patient size (includes targeted exams where dose is matched to clinical indication); or iterative reconstruction. Contrast material: ISO 370; Contrast volume: 80 ml; Contrast route: INTRAVENOUS (IV); COMPARISON: CT ABDOMEN PELVIS WO CON 01/30/2022 11:22 PM FINDINGS: Lungs: Multiple round cysts in the lungs, measuring up to 1.4 x 1.5 cm right upper lobe. No distinct associated nodules or ground-glass opacities. Mild scattered subsegmental atelectasis versus scarring, most prominently left lower lobe. Left upper lobe nodule measuring 10 x 7 mm axial. Subtle patchy ground-glass opacities in the right mid lung on image 48 series 11. Pleural spaces: No pneumothorax or pleural effusion. Esophagus: Mild circumferential thickening and enhancement of the esophagus. Nonspecific. Can be seen with esophagitis. Diaphragm: Oymes-gq-nttkioov hiatal hernia. Post interventional changes at the GE junction. Aorta: No aortic aneurysm. No aortic dissection. Celiac and mesenteric arteries: No occlusion or significant stenosis. Renal arteries: No occlusion or significant stenosis. Right iliac arteries: No occlusion or significant stenosis. Left iliac arteries: No occlusion or significant stenosis. Liver: No mass. Gallbladder and biliary ducts: Unremarkable. No calcified stones. No ductal dilation. Pancreas: Unremarkable. No mass. No ductal dilation. Spleen: Unremarkable. No splenomegaly. Adrenal glands: Unremarkable. No mass. Kidneys and ureters: Benign-appearing bilateral renal cysts. No further follow-up needed. Stomach and bowel: Postsurgical changes of gastric bypass. No bowel obstruction or acute inflammation. Severe descending and sigmoid colonic diverticulosis without acute inflammation. Appendix: No evidence of appendicitis. Intraperitoneal space: Unremarkable. No free air. No significant fluid collection. Lymph nodes: Unremarkable. No enlarged lymph nodes. Urinary bladder: Trace contrast in the dependent bladder. Reproductive: Status post hysterectomy. Bilateral adnexae are unremarkable.. Bones/joints: No acute fracture. Soft tissues: See Diaphragm finding. IMPRESSION: 1. No acute traumatic abnormality in the chest, abdomen, and pelvis.. 2. Multiple round cysts in the lungs, measuring up to 1.4 x 1.5 cm right upper lobe. No distinct associated nodules or ground-glass opacities. Differential includes entities such as Magali Bhavna Jose Armando disease, lymphangioleiomyomatosis, Langerhans cell histiocytosis, and lymphocytic interstitial pneumonia. 3. 10 mm left upper lobe nodule.For both low risk and high risk patients, consider CT Chest at 3 months, PET/CT, or biopsy. (Reference: Chivo) REFERENCES: Chivo H, et al. Guidelines for Management of Incidental Pulmonary Nodules Detected on CT Images: From the Fleischner Society 2017. Radiology. 2017;284(1):228-243.
--- NOTE | 2025-01-25 10:51 | CT_ITS ---
PROCEDURE INFORMATION: Exam: CT Lumbar Spine Without Contrast Exam date and time: 01/25/2025 11:21 AM Age: 74 years old Clinical indication: Injury or trauma; Additional info: Fall down stairs midline tender TECHNIQUE: Imaging protocol: Computed tomography of the lumbar spine without contrast. Radiation optimization: All CT scans at this facility use at least one of these dose optimization techniques: automated exposure control; mA and/or kV adjustment per patient size (includes targeted exams where dose is matched to clinical indication); or iterative reconstruction. COMPARISON: CT THORACIC SPINE WO CON 01/25/2025 11:18 AM FINDINGS: Bones/joints: Subjective osteopenia. No acute fracture or malalignment. Mild multilevel degenerative change. Soft tissues: No soft tissue abnormality. IMPRESSION: No acute fracture or malalignment.
--- NOTE | 2025-01-25 10:51 | CT_ITS ---
PROCEDURE INFORMATION: Exam: CT Cervical Spine Without Contrast Exam date and time: 01/25/2025 11:15 AM Age: 74 years old Clinical indication: Injury or trauma; Additional info: Fall down stairs TECHNIQUE: Imaging protocol: Computed tomography of the cervical spine without contrast. Radiation optimization: All CT scans at this facility use at least one of these dose optimization techniques: automated exposure control; mA and/or kV adjustment per patient size (includes targeted exams where dose is matched to clinical indication); or iterative reconstruction. COMPARISON: CT CERVICAL SPINE WO CON 10/18/2020 4:47 AM FINDINGS: Bones: There is no evidence for acute cervical fracture or subluxation. Bones are osteopenic. Spondylosis is noted mainly at the C5-C6 level where there is disc osteophyte and uncovertebral spurring but no severe canal narrowing or cord compression. There is slight early degenerative anterior positioning of C7 relative to T1 measuring up to 1.5 mm. Lungs: Cystic change is noted throughout the visualized upper lungs. Soft tissues: Unremarkable. IMPRESSION: No evidence for acute cervical fracture. Spondylosis as noted.
--- NOTE | 2025-01-25 10:51 | CT_ITS ---
PROCEDURE INFORMATION: Exam: CTA Head With Contrast, Arteriography Exam date and time: 01/25/2025 11:24 AM Age: 74 years old Clinical indication: Injury or trauma; Additional info: Fall down stairs TECHNIQUE: Imaging protocol: Computed tomographic angiography of the head with contrast. Exam focused on the arteries. 3D rendering (Not supervised by radiologist): MIP and/or 3D reconstructed images were created by the technologist. Radiation optimization: All CT scans at this facility use at least one of these dose optimization techniques: automated exposure control; mA and/or kV adjustment per patient size (includes targeted exams where dose is matched to clinical indication); or iterative reconstruction. Contrast material: ISO 370; Contrast volume: 80 ml; Contrast route: INTRAVENOUS (IV); COMPARISON: CT HEAD/BRAIN WO CON 01/25/2025 11:13 AM FINDINGS: ANTERIOR CIRCULATION: Right internal carotid artery: Intracranial segment is patent with no significant stenosis. No aneurysm. Right middle cerebral artery: No occlusion or significant stenosis. No aneurysm. Right anterior cerebral artery: No occlusion or significant stenosis. No aneurysm. Left internal carotid artery: Moderate atherosclerosis and mild (40%) narrowing of the proximal left ICA. Otherwise, carotid and vertebral arteries are unremarkable. Left middle cerebral artery: No occlusion or significant stenosis. No aneurysm. Left anterior cerebral artery: No occlusion or significant stenosis. No aneurysm. POSTERIOR CIRCULATION: Right vertebral artery: No occlusion or significant stenosis. No aneurysm. Left vertebral artery: No occlusion or significant stenosis. No aneurysm. Basilar artery: No occlusion or significant stenosis. No aneurysm. Right posterior cerebral artery: No occlusion or significant stenosis. No aneurysm. Left posterior cerebral artery: No occlusion or significant stenosis. No aneurysm. Brain: No intracranial large vessel occlusion or hemodynamically significant acquired stenosis. Cerebral ventricles: No ventriculomegaly. Bones/joints: Unremarkable. No acute fracture. Soft tissues: Unremarkable. Other findings: Multiple round cysts in the lungs, measuring up to 1.4 x 1.5 cm right upper lobe. No distinct associated nodules or ground-glass opacities. IMPRESSION: 1. No intracranial large vessel occlusion or hemodynamically significant acquired stenosis. 2. No acute intracranial abnormality. 3. Moderate atherosclerosis and mild (40%) narrowing of the proximal left ICA. Otherwise, carotid and vertebral arteries are unremarkable. 4. Multiple round cysts in the lungs, measuring up to 1.4 x 1.5 cm right upper lobe. No distinct associated nodules or ground-glass opacities. Differential includes entities such as Magali Bhavna Jose Armando disease, lymphangioleiomyomatosis, Langerhans cell histiocytosis, and lymphocytic interstitial pneumonia.
--- NOTE | 2025-01-25 10:51 | CT_ITS ---
PROCEDURE INFORMATION: Exam: CTA Chest With Contrast Exam date and time: 01/25/2025 11:27 AM Age: 74 years old Clinical indication: Injury or trauma; Additional info: Fall down stairs paraspinal and L chest pain TECHNIQUE: Imaging protocol: Computed tomographic angiography of the chest with contrast. Exam focused on the arteries. 3D rendering (Not supervised by radiologist): MIP and/or 3D reconstructed images were created by the technologist. Radiation optimization: All CT scans at this facility use at least one of these dose optimization techniques: automated exposure control; mA and/or kV adjustment per patient size (includes targeted exams where dose is matched to clinical indication); or iterative reconstruction. Contrast material: ISO 370; Contrast volume: 80 ml; Contrast route: INTRAVENOUS (IV); COMPARISON: CT CHEST WO CON 03/22/2024 7:59 AM FINDINGS: Pulmonary arteries: Normal. No pulmonary emboli. Aorta: Normal caliber of the thoracic aorta without dissection. Rkws-ui-fwhgnncf thoracic atherosclerosis. Lungs: Multiple round cysts in the lungs, measuring up to 1.4 x 1.5 cm right upper lobe. No distinct associated nodules or ground-glass opacities. Mild scattered subsegmental atelectasis versus scarring, most prominently left lower lobe. Left upper lobe nodule measuring 10 x 7 mm axial. Subtle patchy ground-glass opacities in the right mid lung on image 48 series 11. Pleural spaces: No pneumothorax or pleural effusion. Heart: Heart size upper limits of normal. Diyf-ao-lgahkciz coronary vessel atherosclerosis. Esophagus: Mild circumferential thickening and enhancement of the esophagus. Nonspecific. Can be seen with esophagitis. Lymph nodes: Unremarkable. No enlarged lymph nodes. Diaphragm: Syamh-se-begtuzso hiatal hernia. Post interventional changes at the GE junction. Bones/joints: Unremarkable. No acute fracture. Soft tissues: Unremarkable. IMPRESSION: 1. No acute traumatic abnormality. 2. Multiple round cysts in the lungs, measuring up to 1.4 x 1.5 cm right upper lobe. No distinct associated nodules or ground-glass opacities. Differential includes entities such as Magali Bhavna Jose Armando disease, lymphangioleiomyomatosis, Langerhans cell histiocytosis, and lymphocytic interstitial pneumonia. 3. 10 mm left upper lobe nodule.For both low risk and high risk patients, consider CT Chest at 3 months, PET/CT, or biopsy. (Reference: Chivo) REFERENCES: MacMahon H, et al. Guidelines for Management of Incidental Pulmonary Nodules Detected on CT Images: From the Fleischner Society 2017. Radiology. 2017;284(1):228-243.
--- NOTE | 2025-01-25 10:51 | CT_ITS ---
PROCEDURE INFORMATION: Exam: CTA Head With Contrast, Arteriography Exam date and time: 01/25/2025 11:24 AM Age: 74 years old Clinical indication: Injury or trauma; Fall; Blunt trauma; Head and neck; Additional info: Fall down stairs TECHNIQUE: Imaging protocol: Computed tomographic angiography of the head with contrast. Exam focused on the arteries. 3D rendering (Not supervised by radiologist): MIP and/or 3D reconstructed images were created by the technologist. Radiation optimization: All CT scans at this facility use at least one of these dose optimization techniques: automated exposure control; mA and/or kV adjustment per patient size (includes targeted exams where dose is matched to clinical indication); or iterative reconstruction. COMPARISON: CT HEAD/BRAIN WO CON 01/25/2025 11:13 AM FINDINGS: ANTERIOR CIRCULATION: Right internal carotid artery: Intracranial segment is patent with no significant stenosis. No aneurysm. Right middle cerebral artery: No occlusion or significant stenosis. No aneurysm. Right anterior cerebral artery: No occlusion or significant stenosis. No aneurysm. Left internal carotid artery: Intracranial segment is patent with no significant stenosis. No aneurysm. Left middle cerebral artery: No occlusion or significant stenosis. No aneurysm. Left anterior cerebral artery: No occlusion or significant stenosis. No aneurysm. POSTERIOR CIRCULATION: Right vertebral artery: No occlusion or significant stenosis. No aneurysm. Left vertebral artery: No occlusion or significant stenosis. No aneurysm. Basilar artery: No occlusion or significant stenosis. No aneurysm. Right posterior cerebral artery: No occlusion or significant stenosis. No aneurysm. Left posterior cerebral artery: No occlusion or significant stenosis. No aneurysm. Brain: No definite mass, mass effect, or midline shift. Cerebral ventricles: No ventriculomegaly. Bones/joints: Unremarkable. No acute fracture. Soft tissues: Unremarkable. IMPRESSION: No large vessel stenosis or occlusion. PROCEDURE INFORMATION: Exam: CTA Neck With Contrast Exam date and time: 01/25/2025 11:24 AM Age: 74 years old Clinical indication: Injury or trauma; Fall; Blunt trauma; Head and neck; Additional info: Fall down stairs TECHNIQUE: Imaging protocol: Computed tomographic angiography of the neck with contrast. Exam focused on the cervical segments of the vasculature. 3D rendering (Not supervised by radiologist): MIP and/or 3D reconstructed images were created by the technologist. Radiation optimization: All CT scans at this facility use at least one of these dose optimization techniques: automated exposure control; mA and/or kV adjustment per patient size (includes targeted exams where dose is matched to clinical indication); or iterative reconstruction. Contrast material: ISO 370; Contrast volume: 80 ml; Contrast route: INTRAVENOUS (IV); COMPARISON: CT CERVICAL SPINE WO CON 01/25/2025 11:15 AM FINDINGS: Right common carotid artery: No stenosis. No dissection or occlusion. Right internal carotid artery: There is [id number] calcific atheromatous plaque at the origin of the right internal carotid artery without significant stenosis. Right external carotid artery: No occlusion or stenosis of the origin. Left common carotid artery: No stenosis. No dissection or occlusion. Left internal carotid artery: There is heavy soft and calcific atheromatous plaque at the origin of the left internal carotid artery with a minimum transverse luminal dimension of 3.5 mm compared with a distal internal carotid artery measurement of 4.6 mm. Left external carotid artery: No occlusion or stenosis of the origin. Right vertebral artery: No stenosis. No dissection or occlusion. Left vertebral artery: No stenosis. No dissection or occlusion. Soft tissues: Normal. No significant soft tissue swelling. Bones/joints: Cervical spondylosis is noted. Lungs: Cystic change is noted in the visualized upper lungs. IMPRESSION: Atheromatous plaque in the proximal internal carotid arteries, no significant stenosis on the right, less than 40% stenosis on the left. REFERENCES: NASCET CRITERIA. The degree of stenosis in the cervical segment of the internal carotid artery is based on NASCET criteria. Normal is no stenosis. Mild is less than 50% stenosis. Moderate is 50-69% stenosis. Severe is 70% to 99% stenosis. Total occlusion is no detectable patent lumen.
--- NOTE | 2025-01-25 10:51 | CT_ITS ---
PROCEDURE INFORMATION: Exam: CT Head Without Contrast Exam date and time: 01/25/2025 11:13 AM Age: 74 years old Clinical indication: Injury or trauma; Additional info: Fall down stairs TECHNIQUE: Imaging protocol: Computed tomography of the head without contrast. Radiation optimization: All CT scans at this facility use at least one of these dose optimization techniques: automated exposure control; mA and/or kV adjustment per patient size (includes targeted exams where dose is matched to clinical indication); or iterative reconstruction. COMPARISON: CT CERVICAL SPINE WO CON 10/18/2020 4:47 AM FINDINGS: Brain: There is no mass effect, midline shift, acute hemorrhage, extra-axial fluid collection or acute lobar infarct. Extensive hemispheric white matter hypodensity likely represents chronic microvascular ischemic change. Cerebral ventricles: No ventriculomegaly. Paranasal sinuses: Visualized sinuses are unremarkable. No fluid levels. Mastoid air cells: Visualized mastoid air cells are well aerated. Bones: Unremarkable. No acute fracture. Soft tissues: Unremarkable. IMPRESSION: No acute intracranial process.
--- NOTE | 2025-01-25 10:51 | CT_ITS ---
PROCEDURE INFORMATION: Exam: CT Thoracic Spine Without Contrast Exam date and time: 01/25/2025 11:18 AM Age: 74 years old Clinical indication: Injury or trauma; Additional info: Fall down stairs midline tender TECHNIQUE: Imaging protocol: Computed tomography of the thoracic spine without contrast. Radiation optimization: All CT scans at this facility use at least one of these dose optimization techniques: automated exposure control; mA and/or kV adjustment per patient size (includes targeted exams where dose is matched to clinical indication); or iterative reconstruction. COMPARISON: CT CERVICAL SPINE WO CON 01/25/2025 11:15 AM FINDINGS: Bones/joints: Subjective osteopenia. Mildly exaggerated thoracic kyphosis. Mild multilevel degenerative change. No worrisome lytic or blastic osseous lesion. Soft tissues: No soft tissue abnormality. IMPRESSION: No acute fracture or malalignment.
--- NOTE | 2025-01-25 10:53 | [facility].EDGENADL ---
Discharge Plan Disposition Patient Disposition: Home, Self-Care Prescriptions Prescriptions: New methocarbamol 1,000 mg tablet 1,000 mg PO Q8H Qty: 18 0RF ibuprofen 800 mg tablet 800 mg PO Q8H PRN (Reason: pain) Qty: 15 0RF No Action bupropion HCl 100 mg tablet 200 mg PO BID ferrous gluconate 324 mg (37.5 mg iron) tablet 324 mg PO DAILY acarbose 25 mg tablet 50 mg PO DAILY simethicone 80 mg tablet,chewable 80 mg PO HS PRN (Reason: GI discomfort) montelukast 10 mg tablet 10 mg PO DAILY aspirin 81 mg tablet,delayed release (DR/EC) 81 mg PO DAILY paroxetine HCl 30 mg tablet 30 mg PO DAILY omeprazole magnesium 20 MG tablet,delayed release (DR/EC) 20 mg PO DAILY multivitamin 1 EACH capsule 2 each PO DAILY calcium carb, citrate-vit D3 1 EACH tablet extended release 1 each PO DIRECTED Rx Instructions: 2 IN THE MORNING AND 1 IN THE EVENING cyanocobalamin (vitamin B-12) 5,000 mcg capsule 5,000 mcg PO DIRECTED Rx Instructions: 1 tab MWF cholecalciferol (vitamin D3) 125 mcg (5,000 unit) tablet 5,000 unit PO DAILY Rx Instructions: 1 tab M-F, 2 tabs SS atorvastatin 40 mg Tablet 20 mg PO HS metoprolol succinate 50 mg Tablet Extended Release 24 Hr 50 mg PO BID fluticasone propionate 50 mcg/actuation [place],Suspension 2 spray INTRANASAL BID Rx Instructions: administer into each nostril hydrochlorothiazide 12.5 mg Tablet 12.5 mg PO DAILY losartan 25 mg tablet 50 mg PO BID Ozempic 0.25 mg or 0.5 mg (2 mg/3 mL) Pen Injector 0.5 mg SQ WEEKLY Referrals Follow up/Referrals: Provider,Referral, [Referring, Medical] - See instructions Aleks Rowan MD [Physician, Pulmonology] - See instructions Referral Note: Undifferentiated cystic lesions of lung, pulmonary nodule Activity Restrictions/Add. Instructions Additional Instructions/Restrictions: At this time it was felt you are safe to be discharged home. If new or worsening symptoms please do not hesitate to return the emergency department. Please take Tylenol, ibuprofen, and a muscle relaxer as prescribed. Please call and schedule appoint with Dr. Rowan as soon as you are able for the spots on your lungs we talked about. There is atherosclerosis in your neck that is not currently causing any significant problems please follow-up with your family doctor and mention to them at your next appointment. Clinical Impressions Clinical Impression: Fall, Acute chest wall pain, Lesion of lung, Pulmonary nodule, Carotid artery plaque, Arm pain, left Print Language Print Language: Afghan Discharge ED Provider: Vinay Saul General Adult HPI General Chief complaint: Fall Stated complaint: CP Time Seen by Provider: 01/25/25 10:45 Mode of Arrival: Wheelchair Source of Information: Patient Description of Symptoms (Recalled from ER Triage Doc. by RN): PATIENT STATES YESTERDAY AROUND 2PM SHE FELL DOWN APPROXIAMTLEY 7-8 STEPS FROM TRIPPING, SHE FLIPPED A FEW TIMES AND TODAY SHE HAS LEFT SIDED CHEST WALL PAIN AROUND LEFT BREAST. 01/10. DID HIT HEAD, DENIES LOC. ALSO HAS A BRUISE TO HER LEFT WRIST BUT DENIES ANY PAIN THERE History of Present Illness HPI narrative: Patient is a 74-year-old female on daily aspirin therapy who presents emergency department for evaluation of traumatic injury sustained in a fall. At 2 PM yesterday patient tumbled down a flight of stairs, no loss of consciousness. Since then she has had resultant severe left thoracic cage pain, left paraspinal pain posteriorly, left shoulder pain, left elbow pain. No anticoagulants. Due to persistent pain she presents here for continued evaluation. No midline upper neck pain or headache. No other extremity pain. Please note that above description of symptoms, in this electronic medical record under categorization of recalled from ER triage doctor by RN are reflective of an initial nursing assessment, however, is not reflective of my full history and physical exam that was personally taken and clarified. Consequentially, this preceding description of symptoms, which may include the patient's categorized chief complaint in the EMR, do not reflect my personal clinical impression, and the ultimate description of history of present illness and patient stated complaints should be deferred to this section of the note. Unless stated otherwise or congruent with this section of the note, additional signs, symptoms, or incongruence should be interpreted as inaccurate with my clinical impression. Related Data Home Medications ?Medication ?Instructions ?Recorded ?Confirmed omeprazole magnesium 20 mg 20 mg PO DAILY 08/07/18 04/05/24 tablet,delayed release calcium ER 600 mg (as carb,cit)-D3 1 each PO DIRECTED 08/08/18 04/05/24 12.5 mcg (500 unit) tablet, ext.rel multivitamin 2 each PO DAILY 08/08/18 04/05/24 atorvastatin 40 mg tablet 20 mg PO HS 01/23/22 04/05/24 fluticasone propionate 50 2 spray intranasal BID 01/23/22 04/05/24 mcg/actuation nasal spray,suspension hydrochlorothiazide 12.5 mg tablet 12.5 mg PO DAILY 01/23/22 04/05/24 Held on 03/23/24. Instructions: Resume on 03/29/24. Hold blood pressure medications as your blood pressures were soft as you are taking opioids, resume once you follow-up PCP in 1 week. metoprolol succinate 50 mg 50 mg PO BID 01/23/22 04/05/24 tablet,extended release 24 hr Held on 03/23/24. Instructions: Resume on 03/29/24. Hold blood pressure medications as your blood pressures were soft as you are taking opioids, resume once you follow-up PCP in 1 week. acarbose 25 mg tablet 50 mg PO DAILY 08/01/22 04/05/24 aspirin 81 mg tablet,delayed 81 mg PO DAILY 08/01/22 04/05/24 release bupropion HCl 100 mg tablet 200 mg PO BID 08/01/22 04/05/24 cholecalciferol (vitamin D3) 125 5,000 unit PO DAILY 08/01/22 04/05/24 mcg (5,000 unit) tablet cyanocobalamin (vitamin B-12) 5,000 mcg PO DIRECTED 08/01/22 04/05/24 5,000 mcg capsule ferrous gluconate 324 mg (37.5 mg 324 mg PO DAILY 08/01/22 04/05/24 iron) tablet losartan 25 mg tablet 50 mg PO BID 08/01/22 04/05/24 Held on 03/23/24. Instructions: Resume on 03/29/24. Hold blood pressure medications as your blood pressures were soft as you are taking opioids, resume once you follow-up PCP in 1 week. montelukast 10 mg tablet 10 mg PO DAILY 08/01/22 04/05/24 paroxetine HCl 30 mg tablet 30 mg PO DAILY 08/01/22 04/05/24 simethicone 80 mg chewable tablet 80 mg PO HS PRN GI discomfort 08/01/22 04/05/24 semaglutide 0.25 mg or 0.5 mg (2 0.5 mg SQ WEEKLY 03/21/24 04/05/24 mg/3 mL) subcutaneous pen injector (Ozempic) Previous Rx's ?Medication ?Instructions ?Recorded ibuprofen 800 mg tablet 800 mg PO Q8H PRN pain #15 tabs 01/25/25 methocarbamol 1,000 mg tablet 1,000 mg PO Q8H muscle stiffness 01/25/25 and pain #18 tabs Allergies Allergy/AdvReac Type Severity Reaction Status Date / Time No Known Allergies Allergy Verified 04/05/24 09:39 [facility] Disclaimer: The information contained in this section may have been updated after the patient was seen, as this information can be updated by other users. Medical History (Updated 01/25/25 @ 12:58 by Vinay Saul MD) Secondary spontaneous pneumothorax Respiratory failure, acute Strep throat Closed fracture of head of right radius Acute UTI (urinary tract infection) Renal colic on right side Shingles COVID-19 virus test result unknown Right wrist injury E coli infection Type 2 diabetes mellitus Pyelonephritis Encounter for Johnson catheter removal Retention of urine, unspecified Pneumothorax Cystic-bullous disease of lung Anxiety Depression Hyperlipidemia Hypertension Diabetes Surgical History History of heart artery stent Hx laparoscopic cholecystectomy H/O total hysterectomy Hx of gastric bypass Family History Father Heart attack Social History Smoking Status: Never smoker second hand exposure: No alcohol intake: never current occupational status: other Travel in the last 8 weeks?: None household members: spouse housing: house caffeine: No Have you lived/traveled outside [place] in past 30 days?: No Contact w/someone who lives/traveled outside [place] past 30 days?: No Exposure to someone with infectious disease in past 14 days?: No Do you have a fever (greater than 100.4 F or 38 C)?: No Have you tested positive for COVID-19?: No Exposed to someone with COVID-19 in past 14 days?: No Do you have a sore throat?: No Do you have a cough?: No Do you have any weakness?: No Do you have any diarrhea?: No Are you experiencing any unusual bleeding?: No Do you have any muscle aches/pain?: No Do you have any abdominal pain?: No Are you experiencing loss of taste or smell?: No Other Medical History Have you received the Flu Vaccine for this season: No Have you received the Pneumonia Vaccine: Yes ROS Obtained: Yes Systems reviewed as appropriate & no additional complaints except as documented Physical Exam General General appearance: alert Comment: Appearing in pain in bed Head Head exam: atraumatic and normocephalic Eye Eye exam: Present PERRL and EOMI ENT ENT exam: Present mucous membranes moist Neck Neck exam: Present normal inspection and full ROM; Absent tenderness Chest Chest inspection: Present normal inspection, symmetric chest wall rise and tenderness (Left chest wall) Respiratory Respiratory exam: Present normal lung sounds bilaterally; Absent respiratory distress Cardiovascular Cardiovascular exam: Present regular rate and normal rhythm Abdominal Exam Abdominal exam: Present soft; Absent tenderness Extremities Exam Extremities exam: Present other (Tenderness over the left shoulder and elbow, bruising over the last but is not tender. Palpable radial pulses bilaterally. No tenderness over the remainder of the extremities. 5 out of 5 strength all extremities distally.) Neurological Exam Neurological exam: Present alert and CN II-XII intact; Absent motor sensory deficit Psychiatric Psychiatric exam: Present normal affect Skin Skin exam: Present warm and dry Medical Decision Making Medical Records Screening: Per USPSTF and CDC recommendations, given the prevalence of disease in our region, it is our hospital?s policy to screen for HIV and viral Hepatitis for all patients aged 18 and over and those with ongoing risk factors. Radhames Inquiry Pt receiving controlled substance: No Vital Signs: 01/25/25 10:44 01/25/25 10:47 01/25/25 11:00 Temperature 98.5 F Temperature Source Oral Pulse Rate 59 L 67 Pulse Rate [Right Radial] 60 Respiratory Rate 16 14 Blood Pressure 118/72 111/74 Blood Pressure [Right Arm] 118/72 Blood Pressure Mean [Right Arm] 87 Blood Pressure Source [Right Arm] Automatic Cuff Blood Pressure Position [Right Arm] Supine 02 Sat by Pulse Oximetry 97 99 97 Oxygen Delivery Method Room Air Room Air Room Air 01/25/25 11:52 01/25/25 12:00 01/25/25 12:30 Temperature Temperature Source Pulse Rate 75 75 61 Pulse Rate [Right Radial] Respiratory Rate 13 19 13 Blood Pressure 105/68 L 100/66 L 90/66 L Blood Pressure [Right Arm] Blood Pressure Mean [Right Arm] Blood Pressure Source [Right Arm] Blood Pressure Position [Right Arm] 02 Sat by Pulse Oximetry 96 96 92 L Oxygen Delivery Method Room Air Room Air Room Air Lab Data Lab Results 01/25/25 10:49: WBC 7.6, RBC 3.69 L, Hgb 12.7, Hct 37.8, MCV 102.4 H, MCH 34.4 H, MCHC 33.6, RDW 12.8, Plt Count 158, MPV 11.4 H, Neut % (Auto) 69.3, Lymph % (Auto) 22.1, Sharp % (Auto) 6.6, Eos % (Auto) 1.4, Baso % (Auto) 0.3, Neut # (Auto) 5.3, Lymph # (Auto) 1.7, Sharp # (Auto) 0.5, Eos # (Auto) 0.1, Baso # (Auto) 0.0, PT 11.1, INR 1.00, APTT 24.8, Sodium 138, Potassium 4.0, Chloride 101, Carbon Dioxide 31 H, Anion Gap 10.0, BUN 20 H, Creatinine 1.00, Estimated Creat Clear 45, Estimated GFR 54 L, Est GFR ( Amer) 65, Glucose 105 H, Calcium 9.3, Total Bilirubin 0.6, AST 52 H, ALT 66, Alkaline Phosphatase 65, Troponin I < 0.01, Total Protein 7.7 D, Albumin 4.1, Globulin 3.6 H, Albumin/Globulin Ratio 1.1 01/25/25 10:49 01/25/25 10:49 Orders (Tests/Meds): ED MEDICATIONS Generic Name Dose Route Start Last Admin Trade Name Freq PRN Reason Stop Dose Admin Sodium Chloride 10 ml 01/25/25 10:50 Sodium Chloride 0.9% 10ml Flush Syringe IV 02/24/25 10:49 NEEDED PRN Maintain IV Site Sodium Chloride 10 ml 01/25/25 11:24 01/25/25 11:26 Sodium Chloride 0.9% 10ml Syr (Rad Only) IV 02/24/25 11:23 10 ml NEEDED PRN Administration Maintain IV Site Discontinued Medications Generic Name Dose Route Start Last Admin Trade Name Freq PRN Reason Stop Dose Admin Acetaminophen 1,000 mg 01/25/25 10:50 01/25/25 10:57 Acetaminophen 1,000mg/100ml Vial IV 01/25/25 10:51 1,000 mg ONCE ONE Administration Iopamidol 180 ml 01/25/25 11:24 01/25/25 11:26 Iopamidol-370 (76%);100ml Bottle IV 01/25/25 11:25 180 ml ONCE ONE Administration Ketorolac Tromethamine 30 mg 01/25/25 12:53 01/25/25 12:57 Ketorolac 30mg/Ml Vial IV 01/25/25 12:54 30 mg ONCE ONE Administration Morphine Sulfate 4 mg 01/25/25 10:50 01/25/25 10:56 Morphine 4mg/Ml Syringe IV 01/25/25 10:51 4 mg ONCE ONE Administration Ondansetron HCl 4 mg 01/25/25 10:50 01/25/25 10:56 Ondansetron 4mg/2ml Vial IV 01/25/25 10:51 4 mg ONCE ONE Administration Sodium Chloride 100 ml 01/25/25 11:24 01/25/25 11:26 0.9 % Sodium Chloride 50 Ml Vial IV 01/25/25 11:25 100 ml ONCE ONE Administration ORDERS Category Date Time Status CT angio abd/pel - TRAUMA Stat Cat Scan 01/25/25 10:[address] angio chest - dissection Stat Cat Scan 01/25/25 10:[address] angio head Stat Cat Scan 01/25/25 10:[address] angio neck Stat Cat Scan 01/25/25 10:[address] cervical spine wo con Stat Cat Scan 01/25/25 10:[address] head/brain wo con Stat Cat Scan 01/25/25 10:[address] lumbar spine wo con Stat Cat Scan 01/25/25 10:[address] thoracic spine wo con Stat Cat Scan 01/25/25 10:51 Completed Elbow XR left 2 views [XR elbow LT 2V] Stat Exams 01/25/25 10:50 Completed Humerus XR left [XR humerus LT] Stat Exams 01/25/25 10:50 Completed Shoulder XR left minimum 2 views [XR shoulder LT min 2V Exams 01/25/25 10:50 Completed ] Stat Wrist XR left minimum 3 views [XR wrist LT min 3V] Stat Exams 01/25/25 10:50 Completed Activated Partial Thrombo Time Stat Lab 01/25/25 10:49 Completed Complete Blood Count Auto Diff Stat Lab 01/25/25 10:49 Completed Comprehensive Metabolic Panel Stat Lab 01/25/25 10:49 Completed Prothrombin Time INR Stat Lab 01/25/25 10:49 Completed Trop I [Troponin I] Stat Lab 01/25/25 10:49 Completed ECG Data Tracing #1: Independently interpreted by me rate is 58, rhythm is regular, axis is leftward deviated, no ST elevation in anatomical contiguous leads, QTc 260. Medical Decision Narrative: In summary patient is a 74-year-old female past medical history of scrota above who presents emergency department for evaluation traumatic injury sustained in fall. Patient is hemodynamically stable nontoxic-appearing upon arrival, appearing in pain, afebrile. Differential diagnosis includes multiple rib fractures, hemothorax, upper extremity fracture, intracranial hemorrhage, intra-abdominal hemorrhage, among others. Workup will conducted with hematologic labs, full trauma CTs. Initial inventions include multimodal pain control, antiemetic. Initial work reviewed by me, hematologic labs are nonactionable no significant leukocytosis no transfusable anemia no coagulopathy no BLANCHE or critical electrolyte abnormality. Initial troponins undetectably low. Trauma survey negative for acute intervenable pathology. There are some incidental pulmonary findings but patient does not have respiratory symptoms therefore treat with antibiotics was considered but no leukocytosis no hypoxia will be deferred and patient be referred to Dr. Rowan on an outpatient basis. There is atheromatous plaque in the proximal internal carotid arteries with no significant stenosis for which I will refer her to cardiology. Upon repeat evaluation patient was ambulatory at bedside and is appropriate for outpatient management at this time will be discharged with a course of muscle relaxers and ibuprofen 800s. Critical Care Critical Care Time Critical Care Time: No
--- OUTSIDE RECORDS SUMMARY | 2025-01-25 10:53 | XMS_ITS | Encounter Summary ---
Author Organization [employer] ([place], [place], [place], [place]) Address [address] [place] [address] Care Team Providers Care Advanced Developer Name Role Phone Unavailable Primary Care Provider Unavailabl e Encounter Details Date Type Department Care Team (Late st Contact Info) Description 12/09/2020 Transcribed Document [facility] Family Medicine [address] [place] [address] ProviderCatracho MD [address] [place] [address] Social History Tobacco Use Types Packs/Day Years Used Date Smoking Tobacco: Never Assessed Comments Unknown Sex and Gender Information Value Date Recorded Sex Assigned at Not on file Legal Sex Female 5:21 PM CDT Gender Identity Not on file Sexual Orientation Not on file documented as of this encounter Miscellaneous Notes * Cerner Conversion Note - Historical ProviderMD - 12/09/2020 12:07 AM CDT Patient: AMURISIO ORTIZ Age: 70 years Sex: Female : 1950 Associated Diagnoses: Cough; COVID-19 Author: YANIRA AQUINO MD-EMR Basic Information Additional information: Chief Complaint from Nursing Triage Note : Chief Complaint 12/08/2020 20:25 EDT Chief Complaint Pt co KHAN, Congestion, weakness, cough, tested positive for covid Monday. pt here for infusion. Pt is calm alert skinpwd. . History of Present Illness Patient is a 70-year-old female with a history of CAD and pneumothorax who tested positive for Covid on Monday presenting for Regeneron infusion. Patient states for the last few days she has felt myalgias as well as having a cough. Patient endorses some back pain and mild shortness of breath. Patient denies any abdominal pain. Patient is here for Regeneron. Allergies and nursing notes reviewed. Review of Systems Constitutional symptoms: Fatigue, no fever, no chills. Skin symptoms: No jaundice, ENMT symptoms: No sore throat, Respiratory symptoms: Shortness of breath, cough. Cardiovascular symptoms: No chest pain, Gastrointestinal symptoms: No abdominal pain, no nausea, no vomiting. Musculoskeletal symptoms: Muscle pain, No back pain, Neurologic symptoms: No headache, Endocrine symptoms: No polyuria, Health Status Allergies: Allergic Reactions (Selected) No Known Allergies. Medications: (Selected) Inpatient Medications Ordered casirivimab-imdevimab 600 mg-600 mg/10 mL injectable solution: 1,200 mg, 10 mL, 220 mL/Hr, IV Piggyback, 1-Time Prescriptions Prescribed omeprazole 20 mg oral delayed release capsule: 1 Cap, Oral, Daily, Paper rx, 30 Cap, 0 Refill(s) Documented Medications Documented Metoprolol Tartrate 50 mg oral tablet: 1 Tab, Oral, BID, 180 Tab, 0 Refill(s) Prozac: 40 mg, Oral, Daily, 0 Refill(s) Wellbutrin 100 mg oral tablet: 1 Tab, Oral, TID, 180 Tab, 0 Refill(s) acetaminophen-hydrocodone 325 mg-7.5 mg oral tablet: 2 Tab, Oral, Q4H, PRN: Pain (Moderate 4-6), 0 Refill(s) amLODIPine-atorvastatin 2.5 mg-10 mg oral tablet: 1 Tab, Oral, Daily, 30 Tab, 0 Refill(s) citalopram 20 mg oral tablet: 1 Tab, Oral, Daily, 30 Tab, 0 Refill(s) fexofenadine 180 mg oral tablet: 1 Tab, Oral, Daily, 30 Tab, 0 Refill(s) losartan 50 mg oral tablet: 1 Tab, Oral, BID, 30 Tab, 0 Refill(s) rosuvastatin: 20 mg, Oral, Daily, 0 Refill(s). Past Medical/ Family/ Social History Surgical history: Stented coronary artery ([id number]). Hysterectomy ([id number]). Bladder repair. Chest tube for lung collapse as child. Comments: 08/18/2014 11:51 EDT - MARTITA CISNEROS RN X2. Family history: No family history items have been selected or recorded.. Social history: Social & Psychosocial Habits Alcohol 08/18/2014 Alcohol Use History, Social Habits Yes Nutrition/Health 08/18/2014 Caffeine intake amount: 1/day Substance Abuse 08/18/2014 Recreational Drug Use History No Recreational Drug Use Last 12 Months No Tobacco 08/18/2014 Tobacco Use Within Last Twelve Months No Smoking Status Never smoker . Problem list: Active Problems (8) Anxiety and depression Diabetes mellitus Generalized headache GERD - Gastro-esophageal reflux disease High blood pressure Hyperlipidemia Pneumothorax x2 age 23 Stented coronary artery . Physical Examination Vital Signs Vital Signs/Vital Measures 12/08/2020 20:25 EDT Systolic Blood Pressure 108 mmHg Diastolic Blood Pressure 68 mmHg Temperature Source Tympanic Temperature Mode Fahrenheit Temperature, Fahrenheit 98.0 Deg F Clinical Temperature, C 36.7 Deg C Peripheral Pulse Rate 110 bpm HI Respiratory Rate 20 Breaths/Min Oxygen Saturation 97 % Oxygen Therapy Mode Room air . Measurements 12/08/2020 20:25 EDT Height Source Measured Height Entry Format [place] Height/Length, ANDORRAN (ft) 5 ft Height/Length ANDORRAN 2 Inch CLINICALHEIGHT 157.48 cm [place] Body Weight 49.73 kg Weight Source, ED Standing scale Weight Entry Format [place] Weight [place] lb 144 lb CLINICALWEIGHT 65.45 kg Body Surface Area (BSA) 1.66 m2 Body Mass Index 26.4 kg/m2 HI . Oxygen Saturation 12/08/2020 20:25 EDT Oxygen Saturation 97 % . General: Alert, no acute distress. Skin: Warm, no rash, normal for ethnicity. Head: Normocephalic. Neck: Supple. Eye: Extraocular movements are intact, normal conjunctiva, Sclera. Ears, nose, mouth and throat: Oral mucosa moist. Cardiovascular: Regular rate and rhythm, No murmur, Normal peripheral perfusion, No edema. Respiratory: Lungs are clear to auscultation, respirations are non-labored, breath sounds are equal. Chest wall: No tenderness. Back: Nontender. Gastrointestinal: Soft, Nontender, Non distended, Normal bowel sounds. Neurological: Alert and oriented to person, place, time, and situation, No focal neurological deficit observed. Lymphatics: No lymphadenopathy. Psychiatric: Cooperative. Medical Decision Making Differential Diagnosis:: Bronchitis, upper respiratory infection, asthma, pneumonia, congestive heart failure, chronic obstructive pulmonary disease, dyspnea, allergies, pulmonary embolism. Documents reviewed: Emergency department nurses' notes. Results review: Lab results : Lab Results 12/08/2020 20:29 EDT Sodium Level 142 mmol/L Potassium Level 3.7 mmol/L Chloride Level 109 mmol/L Carbon Dioxide Level 28 mmol/L Anion Gap 9 Glucose Level 118 mg/dL HI Blood Urea Nitrogen 15 mg/dL Creatinine Level 0.84 mg/dL eGFR >60 mL/min/1.73m2 eGFR NonAfrican >60 mL/min/1.73m2 Bun/Creatinine 17.9 Calcium Level 8.4 mg/dL LOW Protein Total 7.2 Gram/dL Albumin Level 3.4 Gram/dL Globulin 3.8 Gram/dL A/G Ratio 0.9 LOW Bilirubin Total 0.2 mg/dL Alk Phos 81 Units/Liter AST 56 Units/Liter HI ALT 78 Units/Liter Troponin I Ultra <0.015 ng/mL WBC 5.5 K/uL RBC 3.97 Million/uL Hgb 13.5 Gram/dL Hct 39.8 % MCV 100.3 fL HI MCH 34.0 pg HI MCHC 33.9 Gram/dL Platelet Count 148 K/uL LOW MPV 11.8 fL RDW 12.5 % Neut % 55.4 % Neut # 3.05 K/uL Lymph % 32.4 % Lymph # 1.78 K/uL [place] % 8.2 % [place] # 0.45 K/uL Eos % 3.3 % Eos # 0.18 K/uL Baso % 0.5 % Baso # 0.03 K/uL Slide Review No IG# 0 x10(3)/uL IG% 0 % . Impression and Plan Diagnosis Complaint of Cough - Reason For Visit, Emergency medicine, Medical COVID-19 - Discharge, Medical Plan Condition: Unchanged. Disposition: Medically cleared. Patient was given the following educational materials: 10 Things You Can Do to Manage Your COVID-19 Symptoms at Home - CDC, COVID-19, COVID-19 Frequently Asked Questions, COVID-19 Frequently Asked Questions, COVID-19, 10 Things You Can Do to Manage Your COVID-19 Symptoms at Home - CDC. Follow up with: RENALDO WILSON Within 2 to 3 days If you have difficulty breathing, chest pain, or passout please return to the emergency department. You should check your oxygen at home. If your oxygen is below 92% you should return to the emergency department.. Counseled: Patient, Regarding diagnosis, Regarding diagnostic results, Regarding treatment plan, Regarding prescription, Patient indicated understanding of instructions. Orders: Launch Orders Admit/Transfer/Discharge: Discharge (Order): Start: 12/09/2020 0:08 EDT, Discharge to: Home. Patient tested positive for Covid 4 days ago. Patient is oxygenating 97% on room air. Lungs clear to auscultation. Patient has cough and main complaint is myalgias. Very mild shortness of breath low suspicion at this time for PE. We discussed risks and benefits of Regeneron and lack of FDA approval. Patient was given pamphlet. We discussed measuring her oxygen at home. Very strict return precautions discussed. All questions answered. documented in this encounter Plan of Treatment Not on file documented as of this encounter Visit Diagnoses Not on filedocumented in this encounter
--- OUTSIDE RECORDS SUMMARY | 2025-01-25 10:53 | XMS_ITS | Clinical Summary ---
Author Organization [employer] ([place], [place], [place], [place]) Address [address] [place] [address] Care Team Providers Care Computer Systems Hardware Analyst Name Role Phone Unavailable Primary Care Provider Unavailabl e Social History Tobacco Use Types Packs/Day Years Used Date Smoking Tobacco: Never Assessed Food Insecurity Answer Date Recorded Food run out past 12 months Not on file 04/03 Food did not last past 12 months Not on file 04/14/2023 Employment Answer Date Recorded Help finding and keeping a job Not on file 0 04/14/2023 Family and Community Support Answer Wilver e Recorded Help with Day to Day Activities Not on file 04/14/2023 Feeling Lonely or Isolated Not on file 04/14 Educational Attainment Answer Date Jun rded Speak language other than Tajik at home Not on file 04/14/2023 Want help with school or training Not on file 04/14/2023 Substance Use Answer Date Recorded Used prescription meds for non-medical reasons N ot on file 04/14/2023 Used illegal drugs past 12 months Not on file 04/14/2023 Comments Unknown Sex and Gender Information Value Date Recorded Sex Assigned at Not on file Legal Sex Female 5:21 PM CDT Gender Identity Not on file Sexual Orientation Not on file Plan of Treatment Health Maintenance Due Date Last Done Comments DXA SCAN 1950 Depression Screening (12+) 1960 Tobacco Cessation Counseling and Screening (12+) 1960 Hepatitis C Screening 1966 Shingles Vaccine (Zoster) (2 of 2) 06/17/20082008 DTAP/TDAP/TD VACCINES (2 - T d or Tdap) 04/22/2018 04/22/2008 Respiratory Syncytial Virus (RSV) Adult or (1 - 1-dose 75+ series) 2023 Falls Risk Screening 04/03/2024 COVID-19 VACCINE (4 - 2024-2 6 season) 2024 12/24/2020, 06/03/2020, 05/13/2020 Influenza Vaccine (#1) 2024 2, 12/17/2019, 12/25/2018, Additional history exists Pneumococcal 50+ years Completed 2, 01/18/2016, 10/26/2011 Insurance [employer] [facility]
--- OUTSIDE RECORDS SUMMARY | 2025-01-25 10:53 | XMS_ITS | Encounter Summary ---
Author Organization [employer] ([place], [place], [place], [place]) Address [address] [place] [address] Care Team Providers Care Extension Course Counselor Name Role Phone Unavailable Primary Care Provider Unavailabl e Encounter Details Date Type Department Care Team (Late st Contact Info) Description 12/08/2020 Transcribed Document [facility] [place] [address] [place] [address] ProviderCatracho MD [address], [place] [id number] Social History Tobacco Use Types Packs/Day Years Used Date Smoking Tobacco: Never Assessed Comments Unknown Sex and Gender Information Value Date Recorded Sex Assigned at Not on file Legal Sex Female 5:21 PM CDT Gender Identity Not on file Sexual Orientation Not on file documented as of this encounter Miscellaneous Notes * Cerner Conversion Note - Historical ProviderMD - 12/08/2020 7:02 PM CDT [place] Suicide Severity Rating Scale (C-SSRS) Entered On: 12/08/2020 23:41 EDT Performed On: 12/08/2020 23:39 EDT by Alayna Azevedo RN [place] Suicide Severity Rating Scale (C-SSRS) CSSRS Past Month Wish to be : No CSSRS Past Month Suicidal Thoughts : No CSSRS Lifetime Suicide Behavior : No Suicide Severity Rating Score : 0 Suicide Severity Rating : No Additional Care Required at this time Thoughts of Harming/Killing Others : No Alayna Azevedo RN - 12/08/2020 23:39 EDT documented in this encounter Plan of Treatment Not on file documented as of this encounter Visit Diagnoses Not on filedocumented in this encounter
--- OUTSIDE RECORDS SUMMARY | 2025-01-25 10:53 | XMS_ITS | Encounter Summary ---
Author Organization [employer] ([place], [place], [place], [place]) Address [address] [place] [address] Care Team Providers Care Public Relations Director Name Role Phone Unavailable Primary Care Provider Unavailabl e Encounter Details Date Type Department Care Team (Late st Contact Info) Description 12/09/2020 Transcribed Document [facility] [address] [place] [address] ProviderCatracho MD [address] [place] [address] Social History Tobacco Use Types Packs/Day Years Used Date Smoking Tobacco: Never Assessed Comments Unknown Sex and Gender Information Value Date Recorded Sex Assigned at Not on file Legal Sex Female 5:21 PM CDT Gender Identity Not on file Sexual Orientation Not on file documented as of this encounter Miscellaneous Notes * Cerner Conversion Note - Catracho ProviderMD - 12/09/2020 2:38 [place] [address] MAURISIO ORTIZ :1950 Visit Time:12/08/2020 Your Visit Summary Your Care Team Primary Provider: YANIRA AQUINO Secondary Provider: Your Diagnosis Cough COVID-19 Medical Information You may obtain a copy of your Emergency Department visit from Medical Records by calling the hospital phone number listed above and asking to be directed to the Medical Records Department. If you had special tests, such as EKG???s or X-rays, the interpretation of your tests given to you by the Emergency Department Physician is a preliminary report. Some fractures and illnesses fail to show up on preliminary tests. These will be reviewed again and we will call you if there are any new suggestions. If your symptoms continue notify your physician. After you leave, you should follow the instructions provided. What to do next Follow-Up Appointments Follow Up with RENALDO WILSON When Within 2 to 3 days Comments If you have difficulty breathing, chest pain, or passout please return to the emergency department. You should check your oxygen at home. If your oxygen is below 92% you should return to the emergency department. Where: [address] [id number] [facility] (1) Allergies No Known Allergies Immunizations This Visit No Immunizations Found Medications What How Much When Instructions Next Dose acetaminophen-hydrocodone (acetaminophen-hydrocodone 325 mg-7.5 mg oral tablet) 2 Tablet(s) Oral Every 4 Hours as needed for Pain (Moderate 4-6) amlodipine-atorvastatin (amLODIPine-atorvastatin 2.5 mg-10 mg oral tablet) 1 Tablet(s) Oral Every Day buPROPion (Wellbutrin 100 mg oral tablet) 1 Tablet(s) Oral Three Times A Day citalopram (citalopram 20 mg oral tablet) 1 Tablet(s) Oral Every Day fexofenadine (fexofenadine 180 mg oral tablet) 1 Tablet(s) Oral Every Day fluoxetine (Prozac) 40 Milligram(s) Oral Every Day losartan (losartan 50 mg oral tablet) 1 Tablet(s) Oral Two Times A Day metoprolol (Metoprolol Tartrate 50 mg oral tablet) 1 Tablet(s) Oral Two Times A Day omeprazole (omeprazole 20 mg oral delayed release capsule) 1 Capsule(s) Oral Every Day Paper rx rosuvastatin 20 Milligram(s) Oral Every Day The home medications listed are only as accurate as the information you provided. Please continue taking all of your medications prescribed by your Primary Care Provider unless specifically told to change or discontinue the medication. Please direct any questions regarding your home medications to your Primary Care Provider. Take your medications faithfully. Do NOT skip medication. Do NOT stop taking medications without the direction of a physician. Carry a list of your medications with you at all times, and take this medication list with you to your first follow up visit. Report any side effects. Avoid herbal remedies unless discussed with your physician. As part of your treatment plan, your physician may have prescribed a limited course of a controlled substance. This medication may be given to help people with moderate or severe pain or for other medical conditions, but there are risks involved with treatment. Common side effects may include nausea, constipation, drowsiness, sweating, itching, dry mouth, and rash. More serious side effects may include cognitive and motor impairment, like problems with thinking, concentrating, alertness, and movement (e.g. slowed reflexes), and driving and operating heavy machinery can be dangerous. It is important for you to talk to your physician if you have these side effects or questions. These controlled substances can produce physical dependence and be habit-forming if taken for an extended period of time, which means that the body has gotten used to them and may experience withdrawal symptoms if they are abruptly stopped. Withdrawal symptoms can include runny nose, sweating, goose bumps, diarrhea, abdominal cramping, rapid heartbeat, difficulty sleeping, and nervousness. Please dispose of unused and medications per pharmacy guidance. Test Results Laboratory or Other Results This Visit (last charted value for your 12/08/2020 visit) Hematology 12/08/2020 8:29 PM WBC: 5.5 K/uL -- Normal range between ( 3.9 and 10.0 ) RBC: 3.97 Million/uL -- Normal range between ( 3.93 and 5.22 ) Hct: 39.8 % -- Normal range between ( 34.1 and 44.9 ) Hgb: 13.5 Gram/dL -- Normal range between ( 11.2 and 15.7 ) Platelet Count: 148 K/uL -- Normal range between ( 163 and 369 ) MCH: 34.0 pg -- Normal range between ( 25.6 and 32.2 ) MCHC: 33.9 Gram/dL -- Normal range between ( 32.3 and 36.5 ) MCV: 100.3 fL -- Normal range between ( 79.0 and 94.8 ) Slide Review: No Eos %: 3.3 % -- Normal range between ( 1.0 and 7.0 ) [place] #: 0.45 K/uL -- Normal range between ( 0.24 and 0.82 ) Eos #: 0.18 K/uL -- Normal range between ( 0.04 and 0.54 ) [place] %: 8.2 % -- Normal range between ( 4.7 and 12.5 ) Baso %: 0.5 % -- Normal range between ( 0.0 and 1.0 ) Baso #: 0.03 K/uL -- Normal range between ( 0.01 and 0.08 ) RDW: 12.5 % -- Normal range between ( 11.6 and 14.4 ) Neut %: 55.4 % -- Normal range between ( 34.0 and 71.0 ) Neut #: 3.05 K/uL -- Normal range between ( 1.56 and 6.13 ) Lymph %: 32.4 % -- Normal range between ( 19.3 and 53.0 ) Lymph #: 1.78 K/uL -- Normal range between ( 1.18 and 3.74 ) MPV: 11.8 fL -- Normal range between ( 9.4 and 12.4 ) IG#: 0 x10(3)/uL IG%: 0 % -- Normal range between ( 0 and 1 ) General Chemistry 12/08/2020 8:29 PM Creatinine Level: 0.84 mg/dL -- Normal range between ( 0.55 and 1.02 ) Sodium Level: 142 mmol/L -- Normal range between ( 136 and 146 ) Potassium Level: 3.7 mmol/L -- Normal range between ( 3.5 and 5.1 ) Chloride Level: 109 mmol/L -- Normal range between ( 102 and 112 ) Carbon Dioxide Level: 28 mmol/L -- Normal range between ( 21 and 32 ) Anion Gap: 9 -- Normal range between ( 9 and 20 ) Bilirubin Total: 0.2 mg/dL -- Normal range between ( 0.2 and 1.3 ) A/G Ratio: 0.9 -- Normal range between ( 1.1 and 2.5 ) ALT: 78 Units/Liter -- Normal range between ( 12 and 78 ) AST: 56 Units/Liter -- Normal range between ( 5 and 37 ) Globulin: 3.8 Gram/dL -- Normal range between ( 1.5 and 4.5 ) Alk Phos: 81 Units/Liter -- Normal range between ( 27 and 136 ) Bun/Creatinine: 17.9 -- Normal range between ( 8.0 and 20.0 ) Calcium Level: 8.4 mg/dL -- Normal range between ( 8.5 and 10.1 ) eGFR : >60 mL/min/1.73m2 eGFR NonAfrican: >60 mL/min/1.73m2 Glucose Level: 118 mg/dL -- Normal range between ( 74 and 106 ) Blood Urea Nitrogen: 15 mg/dL -- Normal range between ( 7 and 22 ) Protein Total: 7.2 Gram/dL -- Normal range between ( 6.4 and 8.2 ) Albumin Level: 3.4 Gram/dL -- Normal range between ( 3.4 and 5.0 ) Cardiac Specific Markers 12/08/2020 8:29 PM Troponin I Ultra: <0.015 ng/mL -- Normal range between ( 0.015 and 0.045 ) Diagnostic Radiology 12/08/2020 9:33 PM CR Chest 2 Vws: CR Chest 2 Vws Education Materials COVID-19 Frequently Asked Questions COVID-19 (coronavirus disease) is an infection that is caused by a virus called severe acute respiratory syndrome coronavirus 2 (SARS-CoV-2). Coronaviruses are a large family of viruses. Some of these viruses cause illness in people, and others cause illness in animals like camels, cats, and bats. In some cases, the viruses that cause illness in animals can spread to humans. Where did the coronavirus come from? In March 2019, [place] told the World Health Organization (WHO) about several cases of lung disease (human respiratory illness). These cases were linked to an open seafood and livestock market in the city of [facility]. The link to the seafood and livestock market suggests that the virus may have spread from animals to humans. However, since that first outbreak in March 2019, the virus has also been shown to spread from person to person. What is the name of the disease and the virus? Disease name Early on, this disease was called novel coronavirus. This is because scientists determined that the disease was caused by a new (novel) respiratory virus. The World Health Organization (WHO) has now named the disease COVID-19, or coronavirus disease. Virus name The virus that causes the disease is called severe acute respiratory syndrome coronavirus 2 (SARS-CoV-2). More information on disease and virus naming ??? World Health Organization: www.who.int/emergencies/diseases/zkizw-knfilsekztb-6418/technical-guidance Who is at risk for complications from coronavirus disease? Some people may be at higher risk for complications from coronavirus disease. This includes older adults and people who have chronic diseases, such as heart disease, diabetes, and lung disease. If you are at higher risk for complications, take these extra precautions: ??? Stay home as much as possible. ??? Avoid social gatherings and travel. ??? Avoid close contact with others. Stay at least 6 ft (2 m) away from others, if possible. ??? Wash your hands often with soap and water for at least 20 seconds. ??? Avoid touching your face, mouth, nose, or eyes. ??? Keep supplies on hand at home, such as food, medicine, and cleaning supplies. ??? If you must go out in public, wear a cloth face covering or face mask. Make sure your mask covers your nose and mouth. How does coronavirus disease spread? The virus that causes coronavirus disease spreads easily from person to person (is contagious). You may catch the virus by: ??? Breathing in droplets from an infected person. Droplets can be spread by a person breathing, speaking, singing, coughing, or sneezing. ??? Touching something, like a table or a doorknob, that was exposed to the virus (contaminated) and then touching your mouth, nose, or eyes. Can I get the virus from touching surfaces or objects? There is still a lot that we do not know about the virus that causes coronavirus disease. Scientists are basing a lot of information on what they know about similar viruses, such as: ??? Viruses cannot generally survive on surfaces for long. They need a human body (host) to survive. ??? It is more likely that the virus is spread by close contact with people who are sick (direct contact), such as through: ? Shaking hands or hugging. ? Breathing in respiratory droplets that travel through the air. Droplets can be spread by a person breathing, speaking, singing, coughing, or sneezing. ??? It is less likely that the virus is spread when a person touches a surface or object that has the virus on it (indirect contact). The virus may be able to enter the body if the person touches a surface or object and then touches his or her face, eyes, nose, or mouth. Can a person spread the virus without having symptoms of the disease? It may be possible for the virus to spread before a person has symptoms of the disease, but this is most likely not the main way the virus is spreading. It is more likely for the virus to spread by being in close contact with people who are sick and by breathing in the respiratory droplets spread when a person breathes, speaks, sings, coughs, or sneezes. What are the symptoms of coronavirus disease? Symptoms vary from person to person and can range from mild to severe. Symptoms may include: ??? Fever or chills. ??? Cough. ??? Difficulty breathing or feeling short of breath. ??? Feeling tired. ??? Headaches, body aches, or muscle aches. ??? Runny or stuffy (congested) nose. ??? Sore throat. ??? New loss of taste or smell. ??? Nausea, vomiting, or diarrhea. These symptoms can appear anywhere from 2 to 14 days after you have been exposed to the virus. Some people may not have any symptoms. If you develop symptoms, call your health care provider. People with severe symptoms may need hospital care. Should I be tested for this virus? Your health care provider will decide whether to test you based on your symptoms, history of exposure, and your risk factors. How does a health care provider test for this virus? Health care providers will collect samples to send for testing. Samples may include: ??? Taking a swab of fluid from the back of your nose and throat, from your nose, or from your throat. ??? Testing a sample of saliva from your mouth. ??? Taking fluid from the lungs by having you cough up mucus (sputum) into a sterile cup. ??? Taking a blood sample. Is there a treatment or vaccine for this virus? Some medicines have been approved for the treatment of people with severe cases of COVID-19 who are being treated in the hospital. There are no medicines that have been approved for treatment of people with mild cases of COVID-19 who do not need hospitalization. Certain medicines used to treat other diseases are being used on a trial basis to see if there are more options for the treatment of COVID-19. If you develop symptoms, call your health care provider. People with severe symptoms may need hospital care. Some vaccines to prevent the virus that causes COVID-19 have been authorized for emergency use. This means that the vaccines are still being tested, but they have been deemed safe for use and have been effective in preventing COVID-19 in trials. These vaccines may not be available for everyone right away. The vaccines will likely be given to certain groups at higher risk first until there is enough supply available for everyone. Until the vaccines are available for everyone, it is important to continue to take steps to protect yourself and others from this virus. What can I do to protect myself and my family from this virus? You can protect yourself and your family by taking the same actions that you would take to prevent the spread of other viruses. Take the following actions: ??? Wash your hands often with soap and water for at least 20 seconds. If soap and water are not available, use alcohol-based hand azure architect. ??? Avoid touching your face, mouth, nose, or eyes. ??? Cough or sneeze into a tissue, sleeve, or elbow. Do not cough or sneeze into your hand or the air. ? If you cough or sneeze into a tissue, throw it away immediately and wash your hands. ??? Disinfect objects and surfaces that are frequently touched every day. ??? Stay away from people who are sick. ??? Avoid going out in public. Follow guidance from your state and local health authorities. ??? Avoid crowded indoor spaces. Stay at least 6 ft (2 m) away from others. ??? If you must go out in public, wear a cloth face covering or face mask. Make sure your mask covers your nose and mouth. ??? Stay home if you are sick, except to get medical care. Call your health care provider before you get medical care. Your health care provider will tell you how long to stay home. ??? Make sure your vaccines are up to date. Ask your health care provider what vaccines you need. What should I do if I need to travel? Follow travel recommendations from your local health authority, the CDC, and WHO. Travel information and advice ??? Centers for Disease Control and Prevention (CDC): www.cdc.gov/coronavirus/2019-ncov/travelers ??? World Health Organization (WHO): www.who.int/emergencies/diseases/oxddb-wbuodatxgfd-3899/travel-advice What should I do if I am sick? General instructions to stop the spread of infection ??? Wash your hands often with soap and water for at least 20 seconds. If soap and water are not available, use alcohol-based hand azure architect. ??? Cough or sneeze into a tissue, sleeve, or elbow. Do not cough or sneeze into your hand or the air. ??? If you cough or sneeze into a tissue, throw it away immediately and wash your hands. ??? Stay home unless you must get medical care. Call your health care provider or local health authority before you get medical care. ??? Avoid public areas. Do not take public transportation, if possible. ??? If you can, wear a mask if you must go out of the house or if you are in close contact with someone who is not sick. Make sure your mask covers your nose and mouth. Keep your home clean ??? Disinfect objects and surfaces that are frequently touched every day. This may include: ? Counters and tables. ? Doorknobs and light switches. ? Sinks and faucets. ? Electronics such as phones, remote controls, keyboards, computers, and tablets. ??? Wash dishes in hot, soapy water or use a sheep farmer. Air-dry your dishes. ??? Wash laundry in hot water. Prevent infecting other household members ??? Let healthy household members care for children and pets, if possible. If you have to care for children or pets, wash your hands often and wear a mask. ??? If possible, sleep in a different bedroom or bed, separate from others. Use a different bathroom. ??? Do not share personal items, such as razors, toothbrushes, deodorant, lam, brushes, towels, and washcloths. Where to find more information Centers for Disease Control and Prevention (CDC) ??? Information and news updates: www.cdc.gov/coronavirus/2019-ncov World Health Organization (WHO) ??? Information and news updates: www.who.int/emergencies/diseases/hfdxz-vzmgcxgukqk-4169 ??? Coronavirus health topic: www.who.int/health-topics/coronavirus ??? Questions and answers on COVID-19: www.who.int/news-room/q-a-detail/r-b-waxzgqoisgbgo ??? Global tracker: who.Tappr [place] [employer] (AAP) ??? Information for families: www.healthychildren.org/Tamazight/health-issues/conditions/chest-lungs/Pages/201 3-Dfopu-Bumvllpidpb.aspx The coronavirus situation is changing rapidly. Check your local health authority website or the CDC and WHO websites for updates and news. When should I contact a health care provider? Contact your health care provider if you have symptoms of an infection, such as fever or cough, and you: ? Have been near anyone who is known to have coronavirus disease. ? Have come into contact with a person who is suspected to have coronavirus disease. ? Have traveled to an area where there is an outbreak of COVID-19. When should I get emergency medical care? Get help right away by calling your local emergency services (911 in the [place] if you have: ? Trouble breathing. ? Pain or pressure in your chest. ? Confusion. ? Blue-tinged lips and fingernails. ? Difficulty waking from sleep. ? Symptoms that get worse. Let the emergency medical personnel know if you think you have coronavirus disease. Summary ??? A new respiratory virus is spreading from person to person and causing COVID-19 (coronavirus disease). ??? The virus that causes COVID-19 appears to spread easily. It spreads from one person to another through droplets from breathing, speaking, singing, coughing, or sneezing. ??? Older adults and those with chronic diseases are at higher risk of disease. If you are at higher risk for complications, take extra precautions. ??? Some vaccines for the virus that causes COVID-19 have been authorized for emergency use. This means that the vaccines are still being tested, but they have been deemed safe for use and have been effective in preventing COVID-19 in trials. ??? You can protect yourself and your family by washing your hands often, avoiding touching your face, and covering your coughs and sneezes. This information is not intended to replace advice given to you by your health care provider. Make sure you discuss any questions you have with your health care provider. Document Revised: 03/17/2020 Document Reviewed: 03/17/2020 [employer] Patient Education ?? 2020 [employer]. COVID-19 COVID-19 is a respiratory infection that is caused by a virus called severe acute respiratory syndrome coronavirus 2 (SARS-CoV-2). The disease is also known as coronavirus disease or novel coronavirus. In some people, the virus may not cause any symptoms. In others, it may cause a serious infection. The infection can get worse quickly and can lead to complications, such as: ??? Pneumonia, or infection of the lungs. ??? Acute respiratory distress syndrome, or ARDS. This is a condition in which fluid buildup in the lungs prevents the lungs from filling with air and passing oxygen into the blood. ??? Acute respiratory failure. This is a condition in which there is not enough oxygen passing from the lungs to the body or when carbon dioxide is not passing from the lungs out of the body. ??? Sepsis or septic shock. This is a serious bodily reaction to an infection. ??? Blood-clotting problems. ??? Secondary infections due to bacteria or fungus. ??? Organ failure. This is when your body's organs stop working. The virus that causes COVID-19 is contagious. This means that it can spread from person to person through droplets from coughs and sneezes (respiratory secretions). What are the causes? This illness is caused by a virus. You may catch the virus by: ??? Breathing in droplets from an infected person. Droplets can be spread by a person breathing, speaking, singing, coughing, or sneezing. ??? Touching something, like a table or a doorknob, that was exposed to the virus (contaminated) and then touching your mouth, nose, or eyes. What increases the risk? Risk for infection You are more likely to be infected with this virus if you: ??? Are within 6 ft (2 m) of a person with COVID-19. ??? Provide care for or live with a person who is infected with COVID-19. ??? Spend time in crowded indoor spaces or live in shared housing. Risk for serious illness You are more likely to become seriously ill from the virus if you: ??? Are 50 years of age or older. The higher your age, the more you are at risk for serious illness. ??? Live in a half-way or long-term care facility. ??? Have cancer. ??? Have a long-term (chronic) disease such as: ? Chronic lung disease, including chronic obstructive pulmonary disease or asthma. ? A long-term disease that lowers your body's ability to fight infection (immunocompromised). ? Heart disease, including: ? Heart failure. ? Coronary artery disease, a condition in which the arteries that lead to the heart become narrow or blocked. ? A disease that makes the heart muscle thick, weak, or stiff (cardiomyopathy). ? Diabetes. ? Chronic kidney disease. ? Sickle cell disease, a condition in which red blood cells have an abnormal sickle shape. ? Liver disease. ??? Are obese. What are the signs or symptoms? Symptoms of this condition can range from mild to severe. Symptoms may appear any time from 2 to 14 days after being exposed to the virus. They include: ??? A fever or chills. ??? A cough. ??? Difficulty breathing or feeling short of breath. ??? Feeling tired. ??? Headaches, body aches, or muscle aches. ??? Runny or stuffy (congested) nose. ??? A sore throat. ??? New loss of taste or smell. Some people may also have stomach problems, such as nausea, vomiting, or diarrhea. Other people may not have any symptoms of COVID-19. How is this diagnosed? This condition may be diagnosed based on: ??? Your signs and symptoms, especially if: ? You provide care for or live with a person who was diagnosed with COVID-19. ? You were exposed to a person who was diagnosed with COVID-19. ??? A physical exam. ??? Lab tests, which may include: ? Using a swab to take a sample of fluid from the back of your nose and throat (nasopharyngeal fluid), from your nose, or from your throat. ? Testing a sample of saliva from your mouth. ? Testing a sample of coughed-up mucus from your lungs (sputum). ? Blood tests. ??? Imaging tests, which may include X-rays, CT scan, or ultrasound. How is this treated? Your health care provider will talk with you about ways to treat your symptoms. For most people, the infection is mild and can be managed at home with rest, fluids, and gcdy-njg-zsqpowl medicines. There are currently no prescription medicines that have been approved for treatment of people with mild cases of COVID-19. Some medicines that treat other diseases are being used on a trial basis to see if they are effective for treating mild cases of COVID-19. Treatment for a serious infection usually takes place in a hospital intensive care unit (ICU). It may include one or more of the following treatments. These treatments are given until your symptoms improve. ??? Receiving fluids and medicines through an IV. ? Some medicines have been approved for the treatment of people with serious infection who are being treated in the hospital. In addition, certain medicines that treat other diseases are being used on a trial basis to see if they are effective for treating severe cases of COVID-19. ??? Supplemental oxygen. Extra oxygen is given through a tube in the nose, a face mask, or a moyer. ??? Positioning you to lie on your stomach (prone position). This makes it easier for oxygen to get into the lungs. ??? Continuous positive airway pressure (CPAP) or bi-level positive airway pressure (BPAP) machine. This treatment uses mild air pressure to keep the airways open. A tube that is connected to a motor delivers oxygen to the body. ??? Ventilator. This treatment moves air into and out of the lungs by using a tube that is placed in your windpipe. ??? Tracheostomy. This is a procedure to create a hole in the neck so that a breathing tube can be inserted. ??? Extracorporeal membrane oxygenation (ECMO). This procedure gives the lungs a chance to recover by taking over the functions of the heart and lungs. It supplies oxygen to the body and removes carbon dioxide. Follow these instructions at home: Lifestyle ??? If you are sick, stay home except to get medical care. Your health care provider will tell you how long to stay home. Call your health care provider before you go for medical care. ??? Rest at home as told by your health care provider. ??? Do not use any products that contain nicotine or tobacco, such as cigarettes, e-cigarettes, and chewing tobacco. If you need help quitting, ask your health care provider. ??? Return to your normal activities as told by your health care provider. Ask your health care provider what activities are safe for you. General instructions ??? Take cswf-fuy-lveajah and prescription medicines only as told by your health care provider. ??? Drink enough fluid to keep your urine pale yellow. ??? Keep all follow-up visits as told by your health care provider. This is important. How is this prevented? Some vaccines to prevent the virus that causes COVID-19 have been authorized for emergency use. This means that the vaccines are still being tested, but they have been deemed safe for use and have been effective in preventing COVID-19 in trials. These vaccines may not be available to everyone right away. The vaccines will likely be given to certain groups at higher risk first until there is enough supply available for everyone. Until the vaccines are available for everyone, it is important to continue to take steps to protect yourself and others from this virus. To protect yourself: Take precautions to avoid infection. ??? Stay away from people who are sick. ??? Wash your hands often with soap and water for at least 20 seconds. If soap and water are not available, use an alcohol-based hand azure architect. ??? Avoid touching your mouth, face, eyes, or nose. ??? Avoid going out in public. Follow guidance from your state and local health authorities. ??? If you must go out in public, wear a cloth face covering or face mask. Make sure your mask covers your nose and mouth. ??? Avoid crowded indoor spaces. Stay at least 6 ft (2 m) away from others. ??? Disinfect objects and surfaces that are frequently touched every day. This may include: ? Counters and tables. ? Doorknobs and light switches. ? Sinks and faucets. ? Electronics such as phones, remote controls, keyboards, computers, and tablets. To protect others: If you have symptoms of COVID-19, take steps to prevent the virus from spreading to others. ??? If you think you have a COVID-19 infection, contact your health care provider right away. Tell your health care team that you think you may have a COVID-19 infection. ??? Stay home. Leave your house only to seek medical care. Do not use public transport, if possible. ??? Do not travel while you are sick. ??? Wash your hands often with soap and water for at least 20 seconds. If soap and water are not available, use alcohol-based hand azure architect. ??? Stay away from other members of your household. Let healthy household members care for children and pets, if possible. If you have to care for children or pets, wash your hands often and wear a mask. If possible, stay in your own room, separate from others. Use a different bathroom. ??? Make sure that all people in your household wash their hands well and often. ??? Cough or sneeze into a tissue or your sleeve or elbow. Do not cough or sneeze into your hand or into the air. ??? Wear a cloth face covering or face mask. Make sure your mask covers your nose and mouth. Where to find more information ??? Centers for Disease Control and Prevention: www.cdc.gov/coronavirus ??? World Health Organization: www.who.int/health-topics/coronavirus Contact a health care provider if: ??? You have symptoms of COVID-19. ??? You have been exposed to someone who has COVID-19, even if you do not have symptoms. Get help right away if: ??? You have trouble breathing. ??? You have pain or pressure in your chest. ??? You have confusion. ??? You have bluish lips and fingernails. ??? You have difficulty waking from sleep. ??? You have symptoms that get worse. These symptoms may represent a serious problem that is an emergency. Do not wait to see if the symptoms will go away. Get medical help right away. Call your local emergency services (911 in the [place] Do not drive yourself to the hospital. Let the emergency medical personnel know if you think you have COVID-19. Summary ??? COVID-19 is a respiratory infection that is caused by a virus. It is also known as coronavirus disease or novel coronavirus. It can cause serious infections, such as pneumonia, acute respiratory distress syndrome, acute respiratory failure, or sepsis. ??? The virus that causes COVID-19 is contagious. This means that it can spread from person to person through droplets from breathing, speaking, singing, coughing, or sneezing. ??? You are more likely to develop a serious illness if you are 50 years of age or older, have a weak immune system, live in a half-way, or have a chronic disease. ??? There is no approved medicine to treat mild cases of COVID-19. Your health care provider will talk with you about ways to treat your symptoms. ??? Take steps to protect yourself and others from infection. Wash your hands often and disinfect objects and surfaces that are frequently touched every day. Stay away from people who are sick, and wear a mask if you are sick. This information is not intended to replace advice given to you by your health care provider. Make sure you discuss any questions you have with your health care provider. Document Revised: 03/17/2020 Document Reviewed: 03/17/2020 [employer] Patient Education ?? 2020 [employer] 10 Things You Can Do to Manage Your COVID-19 Symptoms at Home If you have possible or confirmed COVID-19: 1. Stay home from work and school. And stay away from other public places. If you must go out, avoid using any kind of public transportation, ridesharing, or taxis. 2. Monitor your symptoms carefully. If your symptoms get worse, call your healthcare provider immediately. 3. Get rest and stay hydrated. 4. If you have a medical appointment, call the healthcare provider ahead of time and tell them that you have or may have COVID-19. 5. For medical emergencies, call 911 and notify the dispatch personnel that you have or may have COVID-19. 6. Cover your cough and sneezes with a tissue or use the inside of your elbow. 7. Wash your hands often with soap and water for at least 20 seconds or clean your hands with an alcohol-based hand azure architect that contains at least 60% alcohol. 8. As much as possible, stay in a specific room and away from other people in your home. Also, you should use a separate bathroom, if available. If you need to be around other people in or outside of the home, wear a mask. 9. Avoid sharing personal items with other people in your household, like dishes, towels, and bedding. 10. Clean all surfaces that are touched often, like counters, tabletops, and doorknobs. Use household cleaning sprays or wipes according to the label instructions. cdc.gov/coronavirus 10/02/2019 This information is not intended to replace advice given to you by your health care provider. Make sure you discuss any questions you have with your health care provider. Document Revised: 03/05/2020 Document Reviewed: 03/05/2020 [employer] Patient Education ?? 2020 [employer] Emergency Awareness and Preventative Care STROKE is an EMERGENCY Every Minute Counts Act FAST and Check for these signs: FACE Does the face look uneven? ARM Does one arm drift down? SPEECH Does their speech sound strange? TIME Call at any sign of stroke Stroke Risk Factors Atrial Fibrillation (irregular heartbeat) Diabetes Family history of stroke Heart Disease Heavy alcohol use High Blood Pressure High Cholesterol Physical inactivity and obesity Smoking Cigarette Smoking The facts are clear, cigarette smoking will shorten your life. Smoking can cause many illnesses along the way. As a healthcare provider, we recommend that you stop smoking. Assistance with quitting is available by contacting 7-424-MUJMNOW. This is a free resource providing counseling, support, and referral. Or you may contact your personal physician. [employer] Suicide Prevention Lifeline: The National Suicide Prevention Lifeline is a national network of local crisis centers that provides free and confidential emotional support to people in suicidal crisis or emotional distress 24 hours a day, 7 days a week. Don't Wait! Stop a Heart Attack Before it Starts What is a heart attack? A heart attack is damage or to a part of the heart from severely decreased or lack of blood flow to the heart. Over time, arteries can become narrow from the buildup of fat and cholesterol, which is called plaque. The plaque can rupture causing a blood clot to form. When the blood clot forms, the artery can become severely narrowed or completely blocked, causing a heart attack. Heart attack is the leading cause of in the [place]. 85% of muscle damage occurs within the first 2 hours. Delay in the recognition of heart attack symptoms increases the chances of . Know the early symptoms of a heart attack: Nausea Feeling of fullness in chest Jaw Pain Pain that travels down one or both arms Fatigue/being tired Anxiety Back Pain Chest pressure, squeezing, or discomfort Shortness of breath Sweating, or a cold sweat Feeling of impending doom There are unusual signs of a heart attack, too! Women, the elderly, and diabetics may present with atypical symptoms: Fainting/dizziness Weakness Confusion Risk Factors for a Heart Attack Some heart disease risk factors, such as age and family history, cannot be changed. Others, like smoking and lack of exercise, can be changed. Smoking High Cholesterol High Blood Pressure Family History Obesity Age Gender (Males are at higher risk) Lack of Exercise Diabetes Diet Stress Excessive Alcohol Intake If you or someone you know is experiencing the signs and symptoms of a heart attack, DON???T DELAY. Call immediately and seek help. If someone collapses, perform CPR! Do not attempt to drive if you are having symptoms of heart attack. Hands-Only CPR Why Hands-Only CPR? Hands-Only CPR has been shown to be as effective as conventional CPR for cardiac arrests that occur outside of a hospital. Survival depends on immediately receiving CPR from someone nearby. How do you perform Hands-Only CPR? There are two easy steps: Call if you see a teen or adult collapse Push hard and fast in the center of the chest at a beat of 100 beats per minute. Save a life! 4 WAYS TO GET AHEAD OF SEPSIS SEPSIS is a MEDICAL EMERGENCY. Time matters! Infections put you and your family at risk for a life-threatening condition called sepsis. Sepsis is the body's extreme response to an infection. It is life-threatening, and without timely treatment, sepsis can rapidly lead to tissue damage, organ failure, and . Sepsis happens when an infection you already have-in your skin, lungs, urinary tract or somewhere else-triggers a chain reaction throughout your body. 1 PREVENT INFECTIONS Take good care of chronic conditions. Talk to your doctor about getting the recommended vaccines. 2 PRACTICE GOOD HYGIENE Wash your hands frequently. Keep cuts or open sores clean and covered until they are healed. 3 KNOW THE SYMPTOMS Confusion or disorientation Shortness of breath High heart rate Fever, shivering, or feeling very cold Extreme pain or discomfort Clammy or sweaty skin 4 ACT FAST Get medical care IMMEDIATELY if you suspect sepsis or if you have an infection that is not getting better or is getting worse. To learn more about sepsis and how to prevent infections, visit www.cdc.gov/sepsis. The examination and treatment you have received in the Emergency Department has been done to provide an appropriate evaluation and stabilizing treatment on an emergency basis only. Given the limited resources, it is not meant to be a substitute for complete medical care. The follow-up doctor you named will receive a copy of your records and all test reports. IT IS IMPORTANT THAT YOU SCHEDULE A FOLLOW-UP APPOINTMENT AND ARE RE-EVALUATED. You should report any new complaints, symptoms, or remaining problems at that time. IT IS IMPOSSIBLE FOR THE EMERGENCY DEPARTMENT TO RECOGNIZE AND TREAT ALL ELEMENTS OF INJURY OR ILLNESS IN A SINGLE VISIT. If you have been referred to a specialist physician, it means that we believe you may have a condition that requires the expertise of a specialist. These physicians work in partnership with the hospital and have agreed to see referred patients in their office for further evaluation. KEEP IN MIND THAT THE SPECIALIST HAS HIS/HER OWN OFFICE POLICIES WHICH MAY REQUIRE PROPER INSURANCE OR PAYMENT UP FRONT BEFORE THE SPECIALIST WILL SEE YOU. It is your responsibility to call the specialist physician to make an appointment. We do not have the ability to refer patients to specialists/physicians that work with specific insurance companies. Please be advised that all financial charges or billing practices are determined by that practice, not the hospital. If your insurance company requires that you see a specialist from their approved list, it is your responsibility to contact your insurance company to make those arrangements. It is also your responsibility to follow any other requirements of your insurance company necessary to obtain coverage for claims submitted. We will bill your insurance; however, you are responsible today for any co-pay amounts. You will receive a separate bill for any services you may have received including: emergency, radiology, or pathology physicians. Patient Name:MAURISIO ORTIZ I have received this information and was given the opportunity to ask questions. Patient/Real Estate Transaction Manager Name: Patient/Real Estate Transaction Manager Signature: Relationship to Patient: Clinician/Hospital Real Estate Transaction Manager Signature: Please Provide a Telephone Number Where You Can Be Reached: Is it Permissible To Leave a Message? Date: documented in this encounter Plan of Treatment Not on file documented as of this encounter Visit Diagnoses Not on filedocumented in this encounter
--- OUTSIDE RECORDS SUMMARY | 2025-01-25 10:53 | XMS_ITS | Referral Summary ---
Author Organization [employer] ([place], [place], [place], [place]) Address [address] [place] [address] Care Team Providers Care Inspection And Testing Supervisor Name Role Phone Unavailable Primary Care Provider [...] Date Jun rded Speak language other than Croatian at home Not on file 04/14/2023 Want [...] Orientation Not on file Plan of Treatment Not on file Insurance [employer] [facility]
--- OUTSIDE RECORDS SUMMARY | 2025-01-25 10:53 | XMS_ITS | Encounter Summary ---
Author Organization [employer] ([place], [place], [place], [place]) Address [address] [place] [address] Care Team Providers Care Sheet Metal Worker Supervisor Name Role Phone Unavailable Primary Care Provider Unavailabl e Encounter Details Date Type Department Care Team (Late st Contact Info) Description 12/08/2020 Transcribed Document [facility] [place] Family Medicine [address] [place] [address] ProviderCatracho MD [address] [place] [address] Social History Tobacco Use Types [...] Historical ProviderMD - 12/08/2020 7:02 PM CDT ED Assessment Entered On: 12/08/2020 23:40 EDT Performed On: 12/08/2020 23:39 EDT by Alayna Azevedo RN ED Quick Look Assessment Level of Consciousness : Alert, Awake Affect/Behavior : Appropriate, Calm, Cooperative Orientation : Oriented x 4 Skin Temperature : Warm Alayna Azevedo RN - 12/08/2020 23:39 EDT ED General-Functional Assess Information Obtained From : Patient Communication Barrier : None Primary Language : French Any Spiritual/Cultural Needs or Requests : No Currently in Unsafe Situation : No Alayna Azevedo RN - 12/08/2020 23:39 EDT Social Habits Smoking Status : Never (less than 100 in lifetime; none in last 30 days) Smokeless Tobacco Status : Never Desires Tobacco Cessation Calc : 0 Alayna Azevedo RN - 12/08/2020 23:39 EDT Social History (As Of: 12/08/2020 23:40:38 EDT) Tobacco: Use in Last 12 Months: No. Smoking Status Never smoker. (Last Updated: 08/18/2014 11:52:20 EDT by MARTITA CISNEROS, RN) Alcohol: Alcohol Use History Yes. (Last Updated: 08/18/2014 11:52:07 EDT by MARTITA CISNEROS, RN) Substance Abuse: Drug Use Hx: No. Use in Last 12 Months: No. (Last Updated: 08/18/2014 11:52:28 EDT by MARTITA CISNEROS, RN) Nutrition/Health: Caffeine intake amount: 1/day. (Last Updated: 08/18/2014 11:52:36 EDT by MARTITA CISNEROS, RN) Cardiovascular ASMT, ED Cardiovascular Assessment WDL : WDL Alayna Azevedo RN - 12/08/2020 23:39 EDT Respiratory Respiratory Assessment WDL : WDL with exceptions (Comment: Pt who is covid positive and has been c/o cough and shortness of air States she would like to have the regeneron infusion. [Alayna Azevedo RN - 12/08/2020 23:39 EDT] ) Alayna Azevedo RN - 12/08/2020 23:39 EDT documented in this encounter Plan of Treatment Not on file documented as of this encounter Visit Diagnoses Not on filedocumented in this encounter
--- OUTSIDE RECORDS SUMMARY | 2025-01-25 10:53 | XMS_ITS | Encounter Summary ---
Author Organization [employer] ([place], [place], [place], [place]) Address [address] [place] [address] Care Team Providers Care Exceptional Children Teacher Name Role Phone Unavailable Primary Care Provider Unavailabl e Encounter Details Date Type Department Care Team (Late st Contact Info) Description 12/09/2020 Transcribed Document [facility] [place] [address] [place] [address] ProviderCatracho MD [address] [place] [address] Social History Tobacco Use Types Packs/Day Years Used Date Smoking Tobacco: Never Assessed Comments Unknown Sex and Gender Information Value Date Recorded Sex Assigned at Not on file Legal Sex Female 5:21 PM CDT Gender Identity Not on file Sexual Orientation Not on file documented as of this encounter Miscellaneous Notes * Cerner Conversion Note - Historical ProviderMD - 12/09/2020 12:08 AM CDT Electronically signed by Antwan, [facility] Conversion Electrical System Specialist Cerner at 07/22/2022 10:22 AM CDT documented in this encounter Plan of Treatment Not on file documented as of this encounter Visit Diagnoses Not on filedocumented in this encounter
--- OUTSIDE RECORDS SUMMARY | 2025-01-25 10:53 | XMS_ITS | Encounter Summary ---
Author Organization [employer] ([place], [place], [place], [place]) Address [address] [place] [address] Care Team Providers Care Shake Out Worker Name Role Phone Unavailable Primary Care Provider Unavailabl e Encounter Details Date Type Department Care Team (Late st Contact Info) Description 12/09/2020 Transcribed Document [facility] [place] [address] [place] [address] ProviderCatracho MD [address] [place] [address] Social History Tobacco Use Types Packs/Day Years Used Date Smoking Tobacco: Never Assessed Comments Unknown Sex and Gender Information Value Date Recorded Sex Assigned at Not on file Legal Sex Female 5:21 PM CDT Gender Identity Not on file Sexual Orientation Not on file documented as of this encounter Miscellaneous Notes * Cerner Conversion Note - Historical ProviderMD - 12/09/2020 2:56 AM CDT ED Discharge Entered On: 12/09/2020 2:56 EDT Performed On: 12/09/2020 2:56 EDT by Alayna Azevedo RN Discharge Process Patient Disposition : Discharge Personal Belongings With Patient : Yes Patient Education Completed : Yes Teaching Evaluation : Verbalizes understanding IV Discontinued : Yes Nursing Documentation Completed : Yes Alayna Azevedo RN - 12/09/2020 2:56 EDT ED Discharge Discharge To : Home with ambulatory/outpatient follow-up Mode Of Departure : Ambulatory Accompanied By : Spouse Discharge Instructions Reviewed With, Opportunity For Questions Given : Patient Prescriptions Given to Patient : No Medications Given to Patient : No Alayna Azevedo RN - 12/09/2020 2:56 EDT documented in this encounter Plan of Treatment Not on file documented as of this encounter Visit Diagnoses Not on filedocumented in this encounter
--- OUTSIDE RECORDS SUMMARY | 2025-01-25 10:53 | XMS_ITS | Encounter Summary ---
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 [place] Family Medicine [facility] [place] [address] ProviderCatracho MD [address] [place] [address] Social History Tobacco Use Types [...] ProviderMD - 12/08/2020 7:02 PM CDT ED Triage Entered On: 12/08/2020 20:28 EDT Performed On: 12/08/2020 20:25 EDT by ILDA KAY RN ED Triage Across the Room Chief Complaint : Pt co [facility], Congestion, weakness, cough, tested positive for covid Monday. pt here for infusion. Pt is calm alert skinpwd. Triage Date/Time : 12/08/2020 20:25 EDT ILDA KAY RN - 12/08/2020 20:25 EDT DCP GENERIC CODE Tracking Acuity : 3 - Urgent Tracking Group : [facility] [place] ILDA KAY RN - 12/08/2020 20:25 EDT Mode of Arrival : Ambulatory Transported to ED by : Private vehicle To Room Via : Ambulate Accompanied By : Unaccompanied ED Vital Signs : Document Height & Weight : Document ED Allergies : Document ED Reason for Visit : Document Tetanus Immunization : Unknown ILDA KAY RN - 12/08/2020 20:25 EDT Infectious Disease History Does patient have symptoms of COVID-19? : Yes Has the Patient Been Tested for COVID-19 in the last 14 days? : Yes, Patient stated results Positive Does the Patient state known exposure to a COVID-19 positive case in the last 14 days? : Yes, under quarantine Patient Vaccinated for COVID-19 : Fully vaccinated ILDA KAY RN - 12/08/2020 20:25 EDT Infectious Disease Risk Screening Grid Cough < 2 wks of unknown origin : Yes Cough > 2 weeks : NO Blood in Sputum : Unable to obtain Fever or self-reported Fever : Unable to obtain Rash of unknown origin : Unable to obtain Headache : Unable to obtain Stiff neck : Unable to obtain Night Sweats : Unable to obtain Unexplained Weight Loss : Unable to obtain Diarrhea (3 episode per day) : Unable to obtain ILDA KAY RN - 12/08/2020 20:25 EDT Physical contact outside [place] in the last 30 days : Unable to obtain Hospitalized in Foreign Country : Unable to obtain Infectious Disease History : Chicken pox/Shingles, Measles, Mumps INF Disease TB Screening Calc : 1 INF Disease Recent Travel Calc : 0 ILDA KAY RN - 12/08/2020 20:25 EDT Vital Signs ED Temperature Source : Tympanic Temperature Mode : Fahrenheit Temperature, Fahrenheit : 98.0 Deg F Clinical Temperature, C : 36.7 Deg C Oxygen Therapy Mode : Room air Peripheral Pulse Rate : 110 bpm (HI) Respiratory Rate : 20 Breaths/Min Systolic Blood Pressure : 108 mmHg Diastolic Blood Pressure : 68 mmHg Oxygen Saturation : 97 % ILDA KAY RN - 12/08/2020 20:25 EDT Allergy (As Of: 12/08/2020 20:28:42 EDT) Allergies (Active) No Known Allergies Estimated Onset Date: Unspecified ; Created By: ZIGGY CEDEÑO RN; Reaction Status: Active ; Category: Drug ; Substance: No Known Allergies ; Type: Allergy ; Updated By: ZIGGY CEDEÑO RN; Reviewed Date: 09/03/2014 10:37 EDT Diagnosis Control ED (As Of: 12/08/2020 20:28:42 EDT) Problems(Active) Anxiety and depression (SNOMED CT :018677393 ) Name of Problem: Anxiety and depression ; Recorder: MARTITA CISNEROS RN; Confirmation: Confirmed ; Classification: Medical ; Code: [id number] ; Contributor System: PowerChart ; Last Updated: 08/18/2014 11:48 EDT ; Life Cycle Date: 08/18/2014 ; Life Cycle Status: Active ; Vocabulary: SNOMED CT Diabetes mellitus (SNOMED CT :376038418 ) Name of Problem: Diabetes mellitus ; Recorder: MARTITA CISNEROS RN; Confirmation: Confirmed ; Classification: Medical ; Code: [id number] ; Contributor System: PowerChart ; Last Updated: 08/18/2014 11:46 EDT ; Life Cycle Date: 08/18/2014 ; Life Cycle Status: Active ; Vocabulary: SNOMED CT Generalized headache (SNOMED CT :682958944 ) Name of Problem: Generalized headache ; Recorder: ZIGGY CEDEÑO RN; Confirmation: Confirmed ; Classification: Nursing ; Code: [id number] ; Contributor System: PowerChart ; Last Updated: 09/03/2014 10:50 EDT ; Life Cycle Date: 09/03/2014 ; Life Cycle Status: Active ; Vocabulary: SNOMED CT GERD - Gastro-esophageal reflux disease (SNOMED CT :8900291432 ) Name of Problem: GERD - Gastro-esophageal reflux disease ; Recorder: MARTITA CISNEROS RN; Confirmation: Confirmed ; Classification: Medical ; Code: [id number] ; Contributor System: PowerChart ; Last Updated: 08/18/2014 11:48 EDT ; Life Cycle Date: 08/18/2014 ; Life Cycle Status: Active ; Vocabulary: SNOMED CT High blood pressure (SNOMED CT :54929201 ) Name of Problem: High blood pressure ; Recorder: MARTITA CISNEROS RN; Confirmation: Confirmed ; Classification: Medical ; Code: [id number] ; Contributor System: PowerChart ; Last Updated: 08/18/2014 11:48 EDT ; Life Cycle Date: 08/18/2014 ; Life Cycle Status: Active ; Vocabulary: SNOMED CT Hyperlipidemia (SNOMED CT :34512561 ) Name of Problem: Hyperlipidemia ; Recorder: MARTITA CISNEROS RN; Confirmation: Confirmed ; Classification: Medical ; Code: [id number] ; Contributor System: PowerChart ; Last Updated: 03/01/2017 13:38 EST ; Life Cycle Date: 08/18/2014 ; Life Cycle Status: Active ; Vocabulary: SNOMED CT Pneumothorax x2 age 23 ([address] :98878884 ) Name of Problem: Pneumothorax x2 age 23 ; Recorder: ZIGGY CEDEÑO RN; Confirmation: Confirmed ; Classification: Patient Stated ; Code: [id number] ; Contributor System: [employer] ; Last Updated: 09/03/2014 10:51 EDT ; Life Cycle Date: 09/03/2014 ; Life Cycle Status: Active ; Vocabulary: SNOMED CT Stented coronary artery (SNOMED CT :4047227580 ) Name of Problem: Stented coronary artery ; Recorder: MARTITA CISNEROS RN; Confirmation: Confirmed ; Classification: Medical ; Code: [id number] ; Contributor System: [employer] ; Last Updated: 08/18/2014 11:48 EDT ; Life Cycle Date: 08/18/2014 ; Life Cycle Status: Active ; Vocabulary: SNOMED CT Diagnoses(Active) Cough Date: 12/08/2020 ; Diagnosis Type: Reason For Visit ; Confirmation: Complaint of ; Clinical Dx: Cough ; Classification: Medical ; Clinical Service: Emergency medicine ; Code: PNED ; Probability: 0 ; Diagnosis Code: [id number] ED Height and Weight Height Source : Measured Height Entry Format : [place] Height, Feet : 5 ft(Converted to: 152 cm, 60 Inch) Height, Inches : 2 Inch(Converted to: 0 ft 2 Inch, 5.08 cm) Clinical Height : 157.48 cm Weight Source, ED : Standing scale Weight Entry Format : [place] Weight, Pounds : 144 lb Clinical Dosing Weight : 65.45 kg Body Surface Area (BSA) : 1.66 m2 Body Mass Index : 26.4 kg/m2 (HI) [place] Body Weight (IBW) : 49.73 kg ILDA KAY RN - 12/08/2020 20:25 EDT documented in this encounter Plan of Treatment Not on file documented as of this encounter Visit Diagnoses Not on filedocumented in this encounter
--- OUTSIDE RECORDS SUMMARY | 2025-01-25 10:53 | XMS_ITS | Encounter Summary ---
Author Organization [employer] ([place], [place], [place], [place]) Address [address] [place] [address] Care Team Providers Care Grades 1 Thru 6 Home Teacher Name Role Phone Unavailable Primary Care Provider Unavailabl e Encounter Details Date Type Department Care Team (Late st Contact Info) Description 12/10/2020 Transcribed Document [facility] [place] Family Medicine [address] [place] [address] ProviderCatracho MD [address] [place] [address] Social History Tobacco Use Types Packs/Day Years Used Date Smoking Tobacco: Never Assessed Comments Unknown Sex and Gender Information Value Date Recorded Sex Assigned at Not on file Legal Sex Female 5:21 PM CDT Gender Identity Not on file Sexual Orientation Not on file documented as of this encounter Miscellaneous Notes * [employer]ner Conversion Note - Historical ProviderMD - 12/10/2020 11:47 AM CDT CR Chest 2 Vws Ordered: 12/08/2020 Auth (Verified) Reason for Exam: SOA 12/09/2020 01:31 12/10/2020 11:47 (BERNY GROSSMAN) No further action required documented in this encounter Plan of Treatment Not on file documented as of this encounter Visit Diagnoses Not on filedocumented in this encounter
--- OUTSIDE RECORDS SUMMARY | 2025-01-25 10:53 | XMS_ITS | Encounter Summary ---
Author Organization [employer] ([place], [place], [place], [place]) Address [address] [place] [address] Care Team Providers Care Store Lead Name Role Phone Unavailable Primary Care Provider Unavailabl e Encounter Details Date Type Department Care Team (Late st Contact Info) Description 12/08/2020 Transcribed Document [facility] [place] Family Medicine [address] [place] [address] ProviderCatracho MD [address] [place] [id number] Social History Tobacco Use Types Packs/Day Years Used Date Smoking Tobacco: Never Assessed Comments Unknown Sex and Gender Information Value Date Recorded Sex Assigned at Not on file Legal Sex Female 5:21 PM CDT Gender Identity Not on file Sexual Orientation Not on file documented as of this encounter Miscellaneous Notes * Cerner Conversion Note - Historical ProviderMD - 12/08/2020 7:02 PM CDT Broset Violence Assessment Entered On: 12/08/2020 23:40 EDT Performed On: 12/08/2020 23:39 EDT by Alayna Azevedo RN Broset Violence Assessment Broset Violence Checklist of Symptoms : None Broset Violence Symptoms Subtotal : 0 Broset Violence Symptoms Indicator : Low risk (0) Broset Interventions : [place] precautions for safety used Alayna Azevedo RN - 12/08/2020 23:39 EDT documented in this encounter Plan of Treatment Not on file documented as of this encounter Visit Diagnoses Not on filedocumented in this encounter
[2025-01-25] MEDS: ONDANSETRON 4MG/2ML VIAL 4 MG IV (10:56)
[2025-01-25] MEDS: MORPHINE 4MG/ML SYRINGE 4 MG IV (10:56)
[2025-01-25] MEDS: ACETAMINOPHEN 1,000MG/100ML VIAL 1000 MG IV (10:57)
[2025-01-25 11:15] LABS: Hematocrit 37.8 % (37.0-47.0); Hemoglobin 12.7 g/dL (12.2-16.2); Immature Granulocytes % 0.3 %; Mean Corpuscular HGB Conc 33.6 g/dL (31.8-35.4); Mean Corpuscular Hemoglobin 34.4 pg (27.0-31.2); Mean Corpuscular Volume 102.4 fl (81-99); Nucleated Red Blood Cells % 0 %; Platelet Count 158 K/mm3 (142-424); Red Blood Count 3.69 M/mm3 (4.20-5.40); Red Cell Distribution Width-SD 48.0 fL; White Blood Count 7.6 K/mm3 (4.8-10.8)
[2025-01-25 11:23] LABS: Activated Partial Thrombo Time 24.8 seconds (22.8-30.6); INR 1.00 (0.9-1.1); Prothrombin Time 11.1 seconds (10.1-12.5)
[2025-01-25 11:25] LABS: Alanine Aminotransferase 66 U/L (12-78); Albumin Level 4.1 g/dl (3.5-5.0); Albumin/Globulin Ratio 1.1 (1.1-1.8); Aspartate Amino Transferase 52 U/L (14-36); Blood Urea Nitrogen 20 mg/dl (7-17); Calcium 9.3 mg/dl (8.4-10.2); Carbon Dioxide 31 mmol/L (22.0-30.0); Chloride 101 mmol/L (98-107); Creatinine Clearance Estimated 45 mL/min (50-200); Creatinine,Serum 1.00 mg/dl (0.52-1.04); Estimated Glomerular Filt Rate 54 ml/min (>60); GFR (African American) 65 ML/MIN (>60); Globulin 3.6 g/dL (1.3-3.2); Glucose 105 mg/dl (74-100); Sodium 138 mmol/L (136-145); Total Protein,Serum 7.7 g/dl (6.3-8.2)
[2025-01-25 11:26] LABS: Alkaline Phosphatase 65 U/L (38-126); Anion Gap 10.0 mEq/L (5-15); Bilirubin,Total 0.6 mg/dl (0.2-1.3); Potassium 4.0 mmoL/L (3.5-5.1)
[2025-01-25] MEDS: SODIUM CHLORIDE 0.9% 10ML SYR (RAD ONLY) 10 ML IV (11:26)
[2025-01-25] MEDS: IOPAMIDOL-370 (76%);100ML BOTTLE 180 ML IV (11:26)
[2025-01-25] MEDS: 0.9 % SODIUM CHLORIDE 50 ML VIAL 100 ML IV (11:26)
[2025-01-25 11:56] LABS: Troponin I < 0.01 ng/ml (0.00-0.034)
--- NOTE | 2025-01-25 12:53 | PC.NURSE ---
Spoke to Elli in radiology, she is going to reach out to check on the status of the pts head CTA
[2025-01-25] MEDS: KETOROLAC 30MG/ML VIAL 30 MG IV (12:57)
== END 2025-01-25 13:23 | disposition home or self-care (01) ==
PROVIDERS: Emergency Provider Emergency Medicine; PCP Family Medicine
DX: R07.89 Other chest pain (principal); M79.602 Pain in left arm; R91.1 Solitary pulmonary nodule; R91.8 Other nonspecific abnormal finding of lung field; I65.29 Occlusion and stenosis of unspecified carotid artery; W10.8XXA Fall (on) (from) other stairs and steps, initial encounter; I10 Essential (primary) hypertension
CPT/HCPCS: 70450; 70496; 70498; 71275; 72125; 72128; 72131; 73030; 73060; 73070; 73110; 74174; 80053; 84484; 85025; 85610; 85730; 93005; 96374; 96375; 99285; J0131; J1885; J2270; J2405; Q9967